=== PATIENT | female | born 1985 | race Caucasian/White ===

== ENCOUNTER → 2016-10-06 | Outpatient (CLI) | payer MEDICAID | LOC: MW.CHOBGYN 11:56 | PROVIDERS: ATTEND Nurse Practitioner Women's Health | DX: Z30.09 Encounter for other general counseling and advice on contraception (principal); N94.6 Dysmenorrhea, unspecified | CPT/HCPCS: 87491; 87591 ==

== ENCOUNTER 2016-11-07 12:12 | Emergency (ER) | payer SELFPAY ==
[2016-11-07] MEDS ORDERED: Ketorolac 30 MG/ML SDV IVPUSH ONE (12:14)
[2016-11-07] MEDS ORDERED: Ondansetron 4 MG/2 ML SDV IVPUSH ONE (12:14)
[2016-11-07] MEDS ORDERED: Sodium Chloride 0.9% 1,000 ML IV ONE (12:14)
--- NOTE | 2016-11-07 12:15 | EDM.PDOC ---
ED HPI GENERAL MEDICAL PROBLEM - General Chief Complaint: Headache Stated Complaint: MIGRANE Time Seen by Provider: 11/07/16 12:14 Source of Information: Reports: Patient - History of Present Illness INITIAL COMMENTS - FREE TEXT/NARRATIVE: HISTORY AND PHYSICAL: History of present illness: [] Patient presents with headache 7/10 left knee neuro lateral with photophobia consistent with migraine history, she also has supraorbital sinus tenderness left greater than right No fever nausea vomiting chills sweats Review of systems: As per history of present illness and below otherwise all systems reviewed and negative. Past medical history: As per history of present illness and as reviewed below otherwise noncontributory. Surgical history: As per history of present illness and as reviewed below otherwise noncontributory. Social history: No reported history of drug or alcohol abuse. Family history: As per history of present illness and as reviewed below otherwise noncontributory. Physical exam: HEENT: Atraumatic, normocephalic, pupils reactive, negative for conjunctival pallor or scleral icterus, mucous membranes moist, throat clear, neck supple, nontender, trachea midline. Supraorbital sign sinus tenderness left greater than right Lungs: Clear to auscultation, breath sounds equal bilaterally, chest nontender. Heart: S1S2, regular, negative for clicks, rubs, or JVD. Abdomen: Soft, nondistended, nontender. Negative for masses or hepatosplenomegaly. Negative for costovertebral tenderness. Pelvis: Stable nontender. Genitourinary: Deferred. Rectal: Deferred. Extremities: Atraumatic, negative for cords or calf pain. Neurovascular unremarkable. Neuro: Awake, alert, oriented. Cranial nerves II through XII unremarkable. Cerebellum unremarkable. Motor and sensory unremarkable throughout. Exam nonfocal. Diagnostics: [] Therapeutics: [] 1 L normal saline bolus Toradol 30 mg IV Zofran 8 mg IV 1 g Rocephin IM Augmentin 875 by mouth twice a day #20 no refill Impression: Migraine Acute sinusitis Definitive disposition and diagnosis as appropriate pending reevaluation and review of above. Headache Pain Score (Numeric/FACES): 8 - Related Data Allergies Allergy/AdvReac Type Severity Reaction Status Date / Time No Known Allergies Allergy Verified 11/07/16 12:38 Home Meds: Home Meds . [No Known Home Meds] 11/07/16 [History] Past Medical History - Past Health History Medical/Surgical History: Denies Medical/Surgical History Social & Family History - Family History Family Medical History: Noncontributory - Tobacco Use Smoking Status *Q: Current Every Day Smoker Years of Tobacco use: 10 Packs/Tins Daily: 0.5 Used Tobacco, but Quit: No Second Hand Smoke Exposure: Yes - Recreational Drug Use Recreational Drug Use: No ED ROS GENERAL - Review of Systems Review Of Systems: ROS reveals no pertinent complaints other than HPI. ED EXAM, GENERAL - Physical Exam Exam: See Below Course - Vital Signs Last Recorded V/S: Last Vital Signs Temp 36.5 C 11/07/16 12:36 Pulse 90 11/07/16 12:36 Resp 18 11/07/16 12:36 BP 121/75 11/07/16 12:36 Pulse Ox 97 11/07/16 12:36 - Orders/Labs/Meds Orders: Active Orders 24 hr Category Date Time Status cefTRIAXone [Rocephin] 1,000 mg Med 11/07/16 13:46 Ordered Lidocaine 1% [Xylocaine-MPF 1%] 4 ml IM ONETIME Meds: Medications Discontinued Medications Generic Name Dose Route Start Last Admin Trade Name Freq PRN Reason Stop Dose Admin Sodium Chloride 1,000 mls @ 999 mls/hr 11/07/16 12:14 11/07/16 13:08 Normal Saline IV 11/07/16 13:14 999 mls/hr STAT ONE Administration Ketorolac Tromethamine 30 mg 11/07/16 12:14 11/07/16 13:14 Toradol IVPUSH 11/07/16 12:15 30 mg ONETIME ONE Administration Ondansetron HCl 8 mg 11/07/16 12:14 11/07/16 13:12 Zofran IVPUSH 11/07/16 12:15 8 mg ONETIME ONE Administration Departure - Departure Time of Disposition: 13:46 Disposition: Home, Self-Care 01 Condition: good Clinical Impression: Migraine, Acute sinusitis - Discharge Information Forms: ED Department Discharge Additional Instructions: Medication as prescribed Claritin daily may benefit Mucinex may benefit Augmentin as prescribed The following information is given to patients seen in the emergency department who are being discharged to home. This information is to outline your options for follow-up care. We provide all patients seen in our emergency department with a follow-up referral. The need for follow-up, as well as the timing and circumstances, are variable depending upon the specifics of your emergency department visit. If you don't have a primary care physician on staff, we will provide you with a referral. We always advise you to contact your personal physician following an emergency department visit to inform them of the circumstance of the visit and for follow-up with them and/or the need for any referrals to a consulting specialist. The emergency department will also refer you to a specialist when appropriate. This referral assures that you have the opportunity for follow-up care with a specialist. All of these measure are taken in an effort to provide you with optimal care, which includes your follow-up. Under all circumstances we always encourage you to contact your private physician who remains a resource for coordinating your care. When calling for follow-up care, please make the office aware that this follow-up is from your recent emergency room visit. If for any reason you are refused follow-up, please contact the [facility] emergency department at and asked to speak to the emergency department charge nurse. - My Orders Last 24 Hours: My Active Orders 11/07/16 13:46 cefTRIAXone [Rocephin] 1,000 mg Lidocaine 1% [Xylocaine-MPF 1%] 4 ml IM ONETIME - Assessment/Plan Last 24 Hours: My Active Orders 11/07/16 13:46 cefTRIAXone [Rocephin] 1,000 mg Lidocaine 1% [Xylocaine-MPF 1%] 4 ml IM ONETIME
[2016-11-07] MEDS ORDERED: cefTRIAXone 1,000 MG in Lidocaine 1% 4 ML IM ONE (13:46)
[2016-11-07 14:21] VITALS: BP 111/61
== END 2016-11-07 14:46 | disposition home or self-care (01) ==
LOC: MW.ED 12:12
DX: G43.909 Migraine, unspecified, not intractable, without status migrainosus (principal); J01.90 Acute sinusitis, unspecified; F17.210 Nicotine dependence, cigarettes, uncomplicated
CPT/HCPCS: 96361; 96372; 96374; 96375; 99284; J0696; J1885; J2405; J7040

== ENCOUNTER 2016-11-08 16:54 | Emergency (ER) | payer SELFPAY ==
[2016-11-08] MEDS ORDERED: Ondansetron 4 MG/2 ML SDV IVPUSH ONE (17:11)
[2016-11-08] MEDS ORDERED: Sodium Chloride 0.9% 1,000 ML IV ONE (17:11)
[2016-11-08] MEDS ORDERED: Ketorolac 30 MG/ML SDV IVPUSH ONE (17:11)
[2016-11-08] MEDS ORDERED: LORazepam 2 MG/ML MDV IVPUSH ONE (17:11)
[2016-11-08] MEDS ORDERED: Cetirizine 10 MG Tab PO ONE (17:16)
--- NOTE | 2016-11-08 17:37 | EDM.PDOC ---
ED HPI GENERAL MEDICAL PROBLEM - General Chief Complaint: Headache Stated Complaint: PT HAS MIGRAINE Time Seen by Provider: 11/08/16 17:00 Source of Information: Reports: Patient History Limitations: Reports: No Limitations - History of Present Illness INITIAL COMMENTS - FREE TEXT/NARRATIVE: History of present illness: [31-year-old female presenting with complaints of migraine headache. Patient was seen here last night for the same and diagnosis of sinusitis as well as acute exacerbation of migraine. Patient is taking medication prescribed for her but she failed to get any antihistamine or sinus decongestion.] Review of systems: As per history of present illness and below otherwise all systems reviewed and negative. Past medical history: As per history of present illness and as reviewed below otherwise noncontributory. Surgical history: As per history of present illness and as reviewed below otherwise noncontributory. Social history: No reported history of drug or alcohol abuse. Family history: As per history of present illness and as reviewed below otherwise noncontributory. Physical exam: HEENT: Atraumatic, normocephalic, pupils reactive, negative for conjunctival pallor or scleral icterus, mucous membranes moist, throat clear, neck supple, nontender, trachea midline. Lungs: Clear to auscultation, breath sounds equal bilaterally, chest nontender. Heart: S1S2, regular, negative for clicks, rubs, or JVD. Abdomen: Soft, nondistended, nontender. Negative for masses or hepatosplenomegaly. Negative for costovertebral tenderness. Pelvis: Stable nontender. Genitourinary: Deferred. Rectal: Deferred. Extremities: Atraumatic, negative for cords or calf pain. Neurovascular unremarkable. Neuro: Awake, alert, oriented. Cranial nerves II through XII unremarkable. Cerebellum unremarkable. Motor and sensory unremarkable throughout. Exam nonfocal. Diagnostics: [] Therapeutics: [Headache workup, and his main] Impression: [Migraine and compounded by sinusitis] Plan: [Continue to take meds are prescribed, obtain antihistamine such as Claritin or Zyrtec] Definitive disposition and diagnosis as appropriate pending reevaluation and review of above. Headache Pain Score (Numeric/FACES): 10 - Related Data Allergies Allergy/AdvReac Type Severity Reaction Status Date / Time No Known Allergies Allergy Verified 11/08/16 17:11 Home Meds: Home Meds . [No Known Home Meds] 11/07/16 [History] Past Medical History - Past Health History Medical/Surgical History: Denies Medical/Surgical History - Infectious Disease History Infectious Disease History: Reports: Chicken Pox Social & Family History - Family History Family Medical History: Noncontributory - Tobacco Use Smoking Status *Q: Current Every Day Smoker Years of Tobacco use: 17 Packs/Tins Daily: 1 Used Tobacco, but Quit: No Second Hand Smoke Exposure: Yes - Caffeine Use Caffeine Use: Reports: Tea - Recreational Drug Use Recreational Drug Use: No ED ROS GENERAL - Review of Systems Review Of Systems: See Below (See history of present illness) - Physical Exam Exam: See Below (See history of present illness) Course - Vital Signs Last Recorded V/S: Last Vital Signs Temp 37.4 C 11/08/16 17:11 Pulse 84 11/08/16 17:50 Resp 14 11/08/16 17:50 BP 110/71 11/08/16 17:50 Pulse Ox 100 11/08/16 17:50 - Orders/Labs/Meds Meds: Medications Discontinued Medications Generic Name Dose Route Start Last Admin Trade Name Ahsan PRN Reason Stop Dose Admin Cetirizine HCl 10 mg 11/08/16 17:16 11/08/16 17:40 Zyrtec PO 11/08/16 17:17 10 mg ONETIME ONE Administration Sodium Chloride 1,000 mls @ 999 mls/hr 11/08/16 17:11 11/08/16 17:26 Normal Saline IV 11/08/16 18:11 999 mls/hr STAT ONE Administration Ketorolac Tromethamine 30 mg 11/08/16 17:11 11/08/16 17:31 Toradol IVPUSH 11/08/16 17:12 30 mg ONETIME ONE Administration Lorazepam 1 mg 11/08/16 17:11 11/08/16 17:27 Ativan IVPUSH 11/08/16 17:12 1 mg ONETIME ONE Administration Ondansetron HCl 8 mg 11/08/16 17:11 11/08/16 17:29 Zofran IVPUSH 11/08/16 17:12 8 mg ONETIME ONE Administration Departure - Departure Time of Disposition: 18:52 Disposition: Home, Self-Care 01 Condition: good Clinical Impression: Sinusitis, Migraine - Discharge Information Forms: ED Department Discharge Additional Instructions: The following information is given to patients seen in the emergency department who are being discharged to home. This information is to outline your options for follow-up care. We provide all patients seen in our emergency department with a follow-up referral. The need for follow-up, as well as the timing and circumstances, are variable depending upon the specifics of your emergency department visit. If you don't have a primary care physician on staff, we will provide you with a referral. We always advise you to contact your personal physician following an emergency department visit to inform them of the circumstance of the visit and for follow-up with them and/or the need for any referrals to a consulting specialist. The emergency department will also refer you to a specialist when appropriate. This referral assures that you have the opportunity for follow-up care with a specialist. All of these measure are taken in an effort to provide you with optimal care, which includes your follow-up. Under all circumstances we always encourage you to contact your private physician who remains a resource for coordinating your care. When calling for follow-up care, please make the office aware that this follow-up is from your recent emergency room visit. If for any reason you are refused follow-up, please contact the [facility] Emergency Department at and asked to speak to the emergency department charge nurse. Continue to take meds are prescribed, obtain antihistamine such as Claritin or Zyrtec Followup with PCP 1-2 day Return to ED as needed as
[2016-11-08 19:15] VITALS: BP 115/73
== END 2016-11-08 19:07 | disposition home or self-care (01) ==
LOC: MW.ED 16:54
DX: G43.909 Migraine, unspecified, not intractable, without status migrainosus (principal); J32.9 Chronic sinusitis, unspecified; F17.210 Nicotine dependence, cigarettes, uncomplicated
CPT/HCPCS: 96361; 96374; 96375; 99284; A9270; J1885; J2060; J2405; J7040

== ENCOUNTER 2017-12-19 17:14 | Inpatient (IN) | payer MEDICAID ==
[2017-12-19] MEDS ORDERED: Tranexamic Acid 1,000 MG in Sodium Chloride 0.9% 100 ML IV PRN (17:43)
[2017-12-19] MEDS ORDERED: Butorphanol 1 MG/ML SDV IVPUSH PRN (17:43)
[2017-12-19] MEDS ORDERED: Misoprostol 200 MCG Tab PO PRN (17:43)
[2017-12-19] MEDS ORDERED: Sodium Chloride 0.9% 10 ML Syringe FLUSH PRN (17:43)
[2017-12-19] MEDS ORDERED: Methylergonovine 0.2 MG/1 ML Amp IM PRN (17:43)
[2017-12-19] MEDS ORDERED: Water For Irrigation,Sterile 1,000 ML Container IRR PRN (17:43)
[2017-12-19] MEDS ORDERED: Nalbuphine 10 MG/ML 10 ML MDV IVPUSH PRN (17:43)
[2017-12-19] MEDS ORDERED: Lidocaine 1% 50 ML MDV INJECT PRN (17:43)
[2017-12-19] MEDS ORDERED: Carboprost Tromethamine 250 MCG/1 ML Amp IM PRN (17:43)
[2017-12-19] MEDS ORDERED: Sodium Chloride 0.9% 2.5 ML Syringe FLUSH PRN (17:43)
[2017-12-19] MEDS ORDERED: Oxytocin/0.9 % Sodium Chloride 30 UNIT/500 ML BAG IV SCH (17:45)
[2017-12-19] MEDS: Lactated Ringers 1,000 ML IV SCH ×2 (17:59→19:05)
--- NOTE | 2017-12-19 17:59 | PCM.LDHP ---
L&D History of Present Illness - General Date of Service: 12/19/17 Admit Problem/Dx: Patient Status Order with Admit Dx/Problem 12/19/17 17:43 Patient Status [ADT] Routine Admission Diagnosis/Problem Admission Diagnosis/Problem - planned 12/19/17 17:56 32yo EDC 12/15/2017 40 4/7wks, O+, RI, GBS neg. Active labor Source of Information: Patient History Limitations: Reports: No Limitations - History of Present Illness Improves with: Reports: None Worsens with: Reports: None Associated Symptoms: Reports: N - Related Data Allergies/Adverse Reactions: Allergies Allergy/AdvReac Type Severity Reaction Status Date / Time No Known Allergies Allergy Verified 11/08/16 17:11 Home Medications: Home Meds . [No Known Home Meds] 11/07/16 [History] Past Medical History - Past Health History Medical/Surgical History: Denies Medical/Surgical History - Infectious Disease History Infectious Disease History: Reports: Chicken Pox Social & Family History - Family History Family Medical History: Noncontributory - Caffeine Use Caffeine Use: Reports: Tea H&P Review of Systems - Review of Systems: Review Of Systems: See Below General: Reports: No Symptoms HEENT: Reports: No Symptoms Pulmonary: Reports: No Symptoms Cardiovascular: Reports: No Symptoms Gastrointestinal: Reports: No Symptoms Genitourinary: Reports: No Symptoms Musculoskeletal: Reports: No Symptoms Skin: Reports: No Symptoms Psychiatric: Reports: No Symptoms Neurological: Reports: No Symptoms Hematologic/Lymphatic: Reports: No Symptoms Immunologic: Reports: No Symptoms L&D Exam - Exam Exam: See Below - OB Specific Contraction Intensity: Strong Movement: Active Heart Tones: Present Heart Rate (FHR) Variability: Moderate (6-25 bmp) Presentation: Vertex Estimated Weight: 3200 - Patterson Score Patterson Score Cervix Position: Anterior Patterson Score Consistency: Soft Patterson Score Effacement: >80% Patterson Score Dilation: > 5 cm Patterson Score Infant's Station: -1 ,0 Patterson Score Total: 12 - Exam General: Alert, Oriented, Cooperative HEENT: Hearing Intact Lungs: Clear to Auscultation, Normal Respiratory Effort Cardiovascular: Regular Rate, Regular Rhythm, Normal S1, Normal S2 GI/Abdominal Exam: Soft, Non-Tender Rectal Exam: Normal Exam, Normal Rectal Tone Genitourinary: Normal external exam, Normal bimanual exam, Cervical dilitation Back Exam: Normal Inspection, Full Range of Motion Extremities: Normal Inspection Skin: Warm, Dry, Intact Neurological: Cranial Nerves Intact, Reflexes Equal Bilateral, Strength Equal Bilateral, Normal Gait, Normal Speech, Normal Tone Psychiatric: Alert, Normal Affect, Normal Mood - Problem List (1) Supervision of normal IUP (intrauterine ) in multigravida SNOMED Code(s): 058225401, 971881342, [id number] ICD Code: Z34.80 - ENCOUNTER FOR SUPRVSN OF NORMAL , UNSP TRIMESTER Status: Acute Priority: High Current Visit: Yes Qualifiers: Trimester: third trimester Qualified Code(s): Z34.83 - Encounter for supervision of other normal , third trimester Problem List Initiated/Reviewed/Updated: Yes Orders Last 24hrs: Active Orders 24 hr Category Date Time Status Patient Status [ADT] Routine ADT 12/19/17 17:43 Active Heart Tones [RC] CONTINUOUS Care 12/19/17 17:43 Active Non Stress Test [RC] PER UNIT ROUTINE Care 12/19/17 17:43 Active May Shower [RC] ASDIRECTED Care 12/19/17 17:43 Active Notify Provider [RC] PRN Care 12/19/17 17:43 Active Up ad Kina [RC] ASDIRECTED Care 12/19/17 17:43 Active Vaginal Exam [RC] PRN Care 12/19/17 17:43 Active Vital Signs [RC] PER UNIT ROUTINE Care 12/19/17 17:43 Active CBC W/O DIFF,HEMOGRAM [HEME] Routine Lab 12/19/17 17:43 Ordered TYPE AND SCREEN [BBK] Routine Lab 12/19/17 17:43 Ordered Butorphanol [Stadol] Med 12/19/17 17:43 Ordered 1 mg IVPUSH Q1H PRN Carboprost Tromethamine [Hemabate DS] Med 12/19/17 17:43 Ordered 250 mcg IM ASDIRECTED PRN Lactated Ringers [Ringers, Lactated] 1,000 ml Med 12/19/17 17:45 Ordered IV ASDIRECTED Lidocaine 1% [Xylocaine 1%] Med 12/19/17 17:43 Ordered 50 ml INJECT .ONCE PRN Methylergonovine [Methergine] Med 12/19/17 17:43 Ordered 0.2 mg IM ASDIRECTED PRN Misoprostol [Cytotec] Med 12/19/17 17:43 Ordered 200 mcg PO .ONCE PRN Nalbuphine [Nubain] Med 12/19/17 17:43 Ordered 10 mg IVPUSH Q1H PRN Oxytocin/0.9 % Sodium Chloride [Oxytocin 30 Unit/500 ML Med 12/19/17 17:45 Ordered -NS] 30 unit in 500 ml IV TITRATE Sodium Chloride 0.9% [Saline Flush] Med 12/19/17 17:43 Ordered 10 ml FLUSH ASDIRECTED PRN Sodium Chloride 0.9% [Saline Flush] Med 12/19/17 17:43 Ordered 2.5 ml FLUSH ASDIRECTED PRN Tranexamic Acid [Cyklokapron] 1,000 mg Med 12/19/17 17:43 Ordered Sodium Chloride 0.9% [Normal Saline] 100 ml IV ONETIME Water For Irrigation,Sterile [Sterile Water for Med 12/19/17 17:43 Ordered Irrigation] 1,000 ml IRR ASDIRECTED PRN Scalp Electrode [WOMSER] Per Unit Routine Oth 12/19/17 17:43 Ordered Peripheral IV Insertion Adult [OM.PC] Routine Oth 12/19/17 17:43 Ordered Resuscitation Status Routine Resus Stat 12/19/17 17:43 Ordered Medication Orders Butorphanol Tartrate (Stadol) 1 mg IVPUSH Q1H PRN PRN Reason: Pain Carboprost Tromethamine (Hemabate Ds) 250 mcg IM ASDIRECTED PRN PRN Reason: Post Hemorrhage Lactated Ringer's (Ringers, Lactated) 1,000 mls @ 150 mls/hr IV ASDIRECTED JOSE Oxytocin/Sodium Chloride (Oxytocin 30 Unit/500 Ml-Ns) 30 unit in 500 mls @ 250 mls/hr IV TITRATE JOSE Tranexamic Acid 1,000 mg/ (Sodium Chloride) 110 mls @ 660 mls/hr IV ONETIME PRN PRN Reason: Bleeding Lidocaine HCl (Xylocaine 1%) 50 ml INJECT .ONCE PRN PRN Reason: Laceration repair Methylergonovine Maleate (Methergine) 0.2 mg IM ASDIRECTED PRN PRN Reason: Post Hemorrhage Misoprostol (Cytotec) 200 mcg PO .ONCE PRN PRN Reason: Post Hemorrhage Nalbuphine HCl (Nubain) 10 mg IVPUSH Q1H PRN PRN Reason: Pain (severe 7-10) Sodium Chloride (Saline Flush) 10 ml FLUSH ASDIRECTED PRN PRN Reason: Keep Vein Open Sodium Chloride (Saline Flush) 2.5 ml FLUSH ASDIRECTED PRN PRN Reason: Keep Vein Open Sterile Water (Sterile Water For Irrigation) 1,000 ml IRR ASDIRECTED PRN PRN Reason: delivery Assessment/Plan Comment:: Labor A: 32yo EDC 12/15/2017 40 4/7wks, O+, RI, GBS neg. Active labor P: Admit, epidural now, anticipate , Dr Blanco [facility]
[2017-12-19] MEDS ORDERED: fentaNYL 100 MCG/2 ML SDV ONE (18:31)
--- NOTE | 2017-12-19 19:28 | PCM.PREANE ---
Preanesthetic Assessment - Anesthesia/Transfusion/Family Hx Anesthesia History: Prior Anesthesia Without Reaction Family History of Anesthesia Reaction: No Transfusion History: No Prior Transfusion(s) Intubation History: Unknown - Review of Systems General: No Symptoms Pulmonary: No Symptoms Cardiovascular: No Symptoms Gastrointestinal: Abdominal Pain Neurological: No Symptoms Other: Reports: None - Physical Assessment Height: 1.68 m Weight: 73.028 kg ASA Class: 2 Mental Status: Alert & Oriented x3 Airway Class: Mallampati = 2 Dentition: Reports: Normal Dentition Thyro-Mental Finger Breadths: 3 Mouth Opening Finger Breadths: 3 ROM/Head Extension: Full Lungs: Clear to Auscultation, Normal Respiratory Effort Cardiovascular: Regular Rate, Regular Rhythm - Lab Values: Laboratory Last Values WBC 17.18 K/uL (4.0-11.0) H 12/19/17 17:51 RBC 4.11 M/uL (4.30-5.90) L 12/19/17 17:51 Hgb 14.1 g/dL (12.0-16.0) 12/19/17 17:51 Hct 39.6 % (36.0-46.0) 12/19/17 17:51 MCV 96.4 fL (80.0-98.0) 12/19/17 17:51 MCH 34.3 pg (27.0-32.0) H 12/19/17 17:51 MCHC 35.6 g/dL (31.0-37.0) 12/19/17 17:51 RDW Std Deviation 45.7 fl (28.0-62.0) 12/19/17 17:51 RDW Coeff of Tonya 13 % (11.0-15.0) 12/19/17 17:51 Plt Count 235 K/uL (150-400) 12/19/17 17:51 MPV 10.50 fL (7.40-12.00) 12/19/17 17:51 Nucleated RBC % 0.0 /100WBC 12/19/17 17:51 Nucleated RBCs # 0 K/uL 12/19/17 17:51 Blood Type O POSITIVE 12/19/17 17:51 Antibody Screen NEGATIVE 12/19/17 17:51 - Allergies Allergies/Adverse Reactions: Allergies Allergy/AdvReac Type Severity Reaction Status Date / Time No Known Allergies Allergy Verified 12/19/17 18:21 - Blood Blood Available: No - Anesthesia Plan Pre-Op Medication Ordered: None - Acknowledgements Anesthesia Type Planned: Epidural Pt an Appropriate Candidate for the Planned Anesthesia: Yes Alternatives and Risks of Anesthesia Discussed w Pt/Guardian: Yes Pt/Guardian Understands and Agrees with Anesthesia Plan: Yes PreAnesthesia Questionnaire - Past Health History Medical/Surgical History: Denies Medical/Surgical History [employer] History: Reports: - Infectious Disease History Infectious Disease History: Reports: Chicken Pox - SUBSTANCE USE Smoking Status *Q: Current Every Day Smoker Tobacco Use Within Last Twelve Months: Cigarettes Second Hand Smoke Exposure: No Recreational Drug Use History: No - HOME MEDS Home Medications: Home Meds Butalb/Acetaminophen/Caffeine [Xkpxda-Nhwxfhjx-Dbnh 50-325-40] 12/19/17 [ History] Butalb/Acetaminophen/Caffeine [[id number]-Hfvpmqtc-Ibms 50-325-40] 12/19/17 [ History] Vit W-Ca,Fe,FA(<1 mg) [ Vitamins] 1 each PO 12/19/17 [History] - CURRENT (IN HOUSE) MEDS Current Meds: Current Medications Butorphanol Tartrate (Stadol) 1 mg IVPUSH Q1H PRN PRN Reason: Pain Carboprost Tromethamine (Hemabate Ds) 250 mcg IM ASDIRECTED PRN PRN Reason: Post Hemorrhage Lactated Ringer's (Ringers, Lactated) 1,000 mls @ 150 mls/hr IV ASDIRECTED [facility] Last Admin: 12/19/17 19:05 Dose: 150 mls/hr Oxytocin/Sodium Chloride (Oxytocin 30 Unit/500 Ml-Ns) 30 unit in 500 mls @ 250 mls/hr IV TITRATE [facility] Tranexamic Acid 1,000 mg/ (Sodium Chloride) 110 mls @ 660 mls/hr IV ONETIME PRN PRN Reason: Bleeding Lidocaine HCl (Xylocaine 1%) 50 ml INJECT .ONCE PRN PRN Reason: Laceration repair Methylergonovine Maleate (Methergine) 0.2 mg IM ASDIRECTED PRN PRN Reason: Post Hemorrhage Misoprostol (Cytotec) 200 mcg PO .ONCE PRN PRN Reason: Post Hemorrhage Nalbuphine HCl (Nubain) 10 mg IVPUSH Q1H PRN PRN Reason: Pain (severe 7-10) Sodium Chloride (Saline Flush) 10 ml FLUSH ASDIRECTED PRN PRN Reason: Keep Vein Open Sodium Chloride (Saline Flush) 2.5 ml FLUSH ASDIRECTED PRN PRN Reason: Keep Vein Open Sterile Water (Sterile Water For Irrigation) 1,000 ml IRR ASDIRECTED PRN PRN Reason: delivery Discontinued Medications Fentanyl (Sublimaze) Confirm Administered Dose 100 mcg .ROUTE .STK-MED ONE Stop: 12/19/17 18:32 Fentanyl/Bupivacaine HCl (Mgfjprmk-Twrmz-Ta 2 Mcg/Ml-0.125%) Confirm Administered Dose 100 mls @ as directed EP .STK-MED ONE Stop: 12/19/17 18:33
--- NOTE | 2017-12-19 20:31 | PCM.DEL ---
L & D Note - General Info Date of Service: 12/19/17 Mother's Due Date: 12/15/17 - Delivery Note Labor: Spontaneous Delivery Outcome: Livebirth Infant Delivery Method: Spontaneous Vaginal Delivery-Single Delivery Mode: Spontaneous Presentation: Vertex Nuchal Cord: Present Anesthesia Type: Epidural Amniotic Fluid Description: Clear Episiotomy Type: None Laceration: None Placenta: Intact, Spontaneous Cord: 3 Vessels Estimated Blood Loss: 150 Resuscitation Needed: No Score 1 min: 9 Score 5 min: 9 Second Stage Interventions: Reports: Pushing, Pulls Own Legs Back Delivery Comments (Free Text/Narrative):: of viable male over intact perineum, head delivered and loose nuchal x2 reduced over head, shoulders and body followed easily. to mothers abd with RN at for evaluation. Spont cry. Delayed cord clamping, pitocin to IVF, cord clamped x2 and cut by FOB. Cord blood collected. Placenta delivered grossly intact. Inspection noted intact perineum. EBL 150cc, APGARS 9/9. Wt: pending bonding and breast feeding. Mother and baby left in stable condition for recovery. - General Info Date of Service: 12/19/17 Admission Dx/Problem (Free Text): Patient Status Order with Admit Dx/Problem 12/19/17 17:43 Patient Status [ADT] Routine Admission Diagnosis/Problem Admission Diagnosis/Problem - planned 12/19/17 17:56 32yo EDC 12/15/2017 40 4/7wks, O+, RI, GBS neg. Active labor Functional Status: Reports: Pain Controlled - Review of Systems General: Reports: No Symptoms HEENT: Reports: No Symptoms Pulmonary: Reports: No Symptoms Cardiovascular: Reports: No Symptoms Gastrointestinal: Reports: No Symptoms Genitourinary: Reports: No Symptoms Musculoskeletal: Reports: No Symptoms Skin: Reports: No Symptoms Neurological: Reports: No Symptoms Psychiatric: Reports: No Symptoms - Patient Data Weight - Most Recent: 73.028 kg Lab Results Last 24 Hours: Laboratory Results - last 24 hr 12/19/17 12/19/17 Range/Units 17:51 17:51 WBC 17.18 H (4.0-11.0) K/uL RBC 4.11 L (4.30-5.90) M/uL Hgb 14.1 (12.0-16.0) g/dL Hct 39.6 (36.0-46.0) % MCV 96.4 (80.0-98.0) fL MCH 34.3 H (27.0-32.0) pg MCHC 35.6 (31.0-37.0) g/dL RDW Std Deviation 45.7 (28.0-62.0) fl RDW Coeff of Tonya 13 (11.0-15.0) % Plt Count 235 (150-400) K/uL MPV 10.50 (7.40-12.00) fL Nucleated RBC % 0.0 /100WBC Nucleated RBCs # 0 K/uL Blood Type O POSITIVE Antibody Screen NEGATIVE Med Orders - Current: Current Medications Butorphanol Tartrate (Stadol) 1 mg IVPUSH Q1H PRN PRN Reason: Pain Carboprost Tromethamine (Hemabate Ds) 250 mcg IM ASDIRECTED PRN PRN Reason: Post Hemorrhage Lactated Ringer's (Ringers, Lactated) 1,000 mls @ 150 mls/hr IV ASDIRECTED JOSE Last Admin: 12/19/17 19:05 Dose: 150 mls/hr Oxytocin/Sodium Chloride (Oxytocin 30 Unit/500 Ml-Ns) 30 unit in 500 mls @ 250 mls/hr IV TITRATE JOSE Tranexamic Acid 1,000 mg/ (Sodium Chloride) 110 mls @ 660 mls/hr IV ONETIME PRN PRN Reason: Bleeding Lidocaine HCl (Xylocaine 1%) 50 ml INJECT .ONCE PRN PRN Reason: Laceration repair Methylergonovine Maleate (Methergine) 0.2 mg IM ASDIRECTED PRN PRN Reason: Post Hemorrhage Misoprostol (Cytotec) 200 mcg PO .ONCE PRN PRN Reason: Post Hemorrhage Nalbuphine HCl (Nubain) 10 mg IVPUSH Q1H PRN PRN Reason: Pain (severe 7-10) Sodium Chloride (Saline Flush) 10 ml FLUSH ASDIRECTED PRN PRN Reason: Keep Vein Open Sodium Chloride (Saline Flush) 2.5 ml FLUSH ASDIRECTED PRN PRN Reason: Keep Vein Open Sterile Water (Sterile Water For Irrigation) 1,000 ml IRR ASDIRECTED PRN PRN Reason: delivery Discontinued Medications Fentanyl (Sublimaze) Confirm Administered Dose 100 mcg .ROUTE .STK-MED ONE Stop: 12/19/17 18:32 Fentanyl/Bupivacaine HCl (Mlqrmbsu-Kuzre-Gq 2 Mcg/Ml-0.125%) Confirm Administered Dose 100 mls @ as directed EP .STK-MED ONE Stop: 12/19/17 18:33 - Exam General: Alert, Oriented, Cooperative Lungs: Normal Respiratory Effort (Female) Exam: Normal External Exam, Normal Bimanual Exam, Vaginal Bleeding Back Exam: Normal Inspection Extremities: Normal Inspection, Non-Tender, No Pedal Edema, Normal Capillary Refill Skin: Warm, Dry, Intact Wound/Incisions: Healing Well Neurological: No New Focal Deficit, Normal Speech, Normal Tone Psy/Mental Status: Alert, Normal Affect, Normal Mood - Problem List & Annotations (1) Supervision of normal IUP (intrauterine ) in multigravida SNOMED Code(s): 724508232, 159639570, 830834331 Code(s): Z34.80 - ENCOUNTER FOR SUPRVSN OF NORMAL , UNSP TRIMESTER Status: Acute Priority: High Current Visit: Yes Qualifiers: Trimester: third trimester Qualified Code(s): Z34.83 - Encounter for supervision of other normal , third trimester (2) (normal spontaneous vaginal delivery) SNOMED Code(s): 81810486 Code(s): O80 - ENCOUNTER FOR FULL-TERM UNCOMPLICATED DELIVERY Status: Acute Priority: High Current Visit: Yes - Problem List Review Problem List Initiated/Reviewed/Updated: Yes - My Orders Last 24 Hours: My Active Orders 12/19/17 17:43 Patient Status [ADT] Routine Heart Tones [RC] CONTINUOUS Non Stress Test [RC] PER UNIT ROUTINE May Shower [RC] ASDIRECTED Notify Provider [RC] PRN Up ad Kina [RC] ASDIRECTED Vaginal Exam [RC] PRN Vital Signs [RC] PER UNIT ROUTINE Butorphanol [Stadol] 1 mg IVPUSH Q1H PRN Carboprost Tromethamine [Hemabate DS] 250 mcg IM ASDIRECTED PRN Lidocaine 1% [Xylocaine 1%] 50 ml INJECT .ONCE PRN Methylergonovine [Methergine] 0.2 mg IM ASDIRECTED PRN Misoprostol [Cytotec] 200 mcg PO .ONCE PRN Nalbuphine [Nubain] 10 mg IVPUSH Q1H PRN Sodium Chloride 0.9% [Saline Flush] 10 ml FLUSH ASDIRECTED PRN Sodium Chloride 0.9% [Saline Flush] 2.5 ml FLUSH ASDIRECTED PRN Tranexamic Acid [Cyklokapron] 1,000 mg Sodium Chloride 0.9% [Normal Saline] 100 ml IV ONETIME Water For Irrigation,Sterile [Sterile Water for Irrigation] 1,000 ml IRR ASDIRECTED PRN Scalp Electrode [WOMSER] Per Unit Routine Peripheral IV Insertion Adult [OM.PC] Routine Resuscitation Status Routine 12/19/17 17:45 Lactated Ringers [Ringers, Lactated] 1,000 ml IV ASDIRECTED Oxytocin/0.9 % Sodium Chloride [Oxytocin 30 Unit/500 ML-NS] 30 unit in 500 ml IV TITRATE - Plan Plan:: Labor A: 32yo EDC 12/15/2017 40 4/7wks, O+, RI, GBS neg. Active labor P: Admit, epidural now, anticipate , Dr Blanco updated Delivery A: of viable male. APGARS 9/9 Wt: pending, EBL 150cc, mother and baby bonding well P: Routine pp plan of care
[2017-12-19] MEDS ORDERED: oxyCODONE 5 MG Tab PO PRN (20:35)
[2017-12-19] MEDS ORDERED: Lanolin 100% Cream 7 GM Tube TOP PRN (20:35)
[2017-12-19] MEDS ORDERED: Acetaminophen 500 MG Tab PO PRN (20:35)
[2017-12-19] MEDS ORDERED: Docusate Sodium 100 MG Cap PO PRN (20:35)
[2017-12-19] MEDS ORDERED: Benzocaine/Menthol 20%-0.5% Spray 78 GM Cannister TOP PRN (20:35)
[2017-12-19] MEDS ORDERED: Bisacodyl 10 MG Supp RECTAL PRN (20:35)
[2017-12-19] MEDS ORDERED: Witch Hazel Medicated Pads 40/Jar TOP PRN (20:35)
[2017-12-19] MEDS ORDERED: Ibuprofen 400 MG Tab PO PRN (20:35)
[2017-12-20] MEDS: Acetaminophen 500 MG Tab PO PRN ×2 (01:05→06:58)
--- NOTE | 2017-12-20 08:00 | PCM48HPAN ---
Post Anesthesia Note - EVALUATION WITHIN 48HRS OF ANESTHETIC Vital Signs in Normal Range: Yes Patient Participated in Evaluation: Yes Respiratory Function Stable: Yes Airway Patent: Yes Cardiovascular Function Stable: Yes Hydration Status Stable: Yes Pain Control Satisfactory: Yes Nausea and Vomiting Control Satisfactory: Yes Mental Status Recovered: Yes Resp Rate: 16 - COMMENTS/OBSERVATIONS Free Text/Narrative:: States her back is a little sore and she has some cramping.
[2017-12-20] MEDS: Ibuprofen 800 MG Tab PO PRN ×2 (08:28→16:14)
--- NOTE | 2017-12-20 16:52 | PCM.DCSUM1 ---
Discharge Summary - Hospital Course Free Text/Narrative:: Discharge home with infant. Follow up in 6 weeks or sooner if needed. Diagnosis: Stroke: No - Discharge Data Discharge Date: 12/20/17 Discharge Disposition: Home, Self-Care 01 Condition: Good - Discharge Diagnosis/Problem(s) (1) Supervision of normal IUP (intrauterine ) in multigravida SNOMED Code(s): 377756803, 036226713, 655794101 ICD Code: Z34.80 - ENCOUNTER FOR SUPRVSN OF NORMAL , UNSP TRIMESTER Status: Acute Priority: High Current Visit: Yes Qualifiers: Trimester: third trimester Qualified Code(s): Z34.83 - Encounter for supervision of other normal , third trimester (2) (normal spontaneous vaginal delivery) SNOMED Code(s): 24365643 ICD Code: O80 - ENCOUNTER FOR FULL-TERM UNCOMPLICATED DELIVERY Status: Acute Priority: High Current Visit: Yes - Patient Instructions Diet: Usual Diet as Tolerated Activity: As Tolerated, No Strenuous Activities, Rest and Relax Today Driving: May Drive Today Showering/Bathing: May Shower Notify Provider of: Fever, Increased Pain, Swelling and Redness, Nausea and/or Vomiting Other/Special Instructions: Discharge home with . Follow up in 6 weeks or sooner if needed. - Discharge Plan Home Medications: Home Meds Butalb/Acetaminophen/Caffeine [Nkhgsv-Idbaummo-Dcmx 50-325-40] 12/19/17 [ History] Butalb/Acetaminophen/Caffeine [Hvghnx-Gujgvgfq-Oqhp 50-325-40] 12/19/17 [ History] Vit W-Ca,Fe,FA(<1 mg) [ Vitamins] 1 each PO 12/19/17 [History] Referrals: [facility] [Outside] Roya Jc CNM [Mid-] - 01/31/18 10:45 am - General Info Date of Service: 12/20/17 Admission Dx/Problem (Free Text: Patient Status Order with Admit Dx/Problem 12/19/17 17:43 Patient Status [ADT] Routine Admission Diagnosis/Problem Admission Diagnosis/Problem - planned 12/19/17 17:56 32yo EDC 12/15/2017 40 4/7wks, O+, RI, GBS neg. Active labor Functional Status: Reports: Pain Controlled, Tolerating Diet, Ambulating, Urinating - Review of Systems General: Reports: No Symptoms HEENT: Reports: No Symptoms Pulmonary: Reports: No Symptoms Cardiovascular: Reports: No Symptoms Gastrointestinal: Reports: No Symptoms Genitourinary: Reports: No Symptoms Musculoskeletal: Reports: No Symptoms Skin: Reports: No Symptoms Neurological: Reports: No Symptoms Psychiatric: Reports: No Symptoms - Patient Data Vitals - Most Recent: Last Vital Signs Temp 36.3 C 12/20/17 16:15 Pulse 77 12/20/17 16:15 Resp 18 12/20/17 16:15 BP 101/65 12/20/17 16:15 Pulse Ox 98 12/20/17 16:15 Weight - Most Recent: 73.028 kg Lab Results - Last 24 hrs: Laboratory Results - last 24 hr 12/19/17 12/19/17 Range/Units 17:51 17:51 WBC 17.18 H (4.0-11.0) K/uL RBC 4.11 L (4.30-5.90) M/uL Hgb 14.1 (12.0-16.0) g/dL Hct 39.6 (36.0-46.0) % MCV 96.4 (80.0-98.0) fL MCH 34.3 H (27.0-32.0) pg MCHC 35.6 (31.0-37.0) g/dL RDW Std Deviation 45.7 (28.0-62.0) fl RDW Coeff of Tonya 13 (11.0-15.0) % Plt Count 235 (150-400) K/uL MPV 10.50 (7.40-12.00) fL Nucleated RBC % 0.0 /100WBC Nucleated RBCs # 0 K/uL Blood Type O POSITIVE Antibody Screen NEGATIVE Med Orders - Current: Current Medications Acetaminophen (Tylenol Extra Strength) 500 mg PO Q4H PRN PRN Reason: Pain Last Admin: 12/20/17 13:18 Dose: 500 mg Acetaminophen (Tylenol Extra Strength) 1,000 mg PO Q4H PRN PRN Reason: Pain Last Admin: 12/20/17 06:58 Dose: 1,000 mg Benzocaine/Menthol (Dermoplast Pain Relief 20%-0.5% [place]) 78 gm TOP ASDIRECTED PRN PRN Reason: Perineal Comfort Measure Bisacodyl (Dulcolax) 10 mg RECTAL .ONCE PRN PRN Reason: Constipation Docusate Sodium (Colace) 100 mg PO BID PRN PRN Reason: Constipation Emollient Ointment (Lansinoh Hpa) 0 gm TOP ASDIRECTED PRN PRN Reason: Sore Nipples Ibuprofen (Motrin) 400 mg PO Q4H PRN PRN Reason: Pain Ibuprofen (Motrin) 800 mg PO Q6H PRN PRN Reason: Pain Last Admin: 12/20/17 16:14 Dose: 800 mg Oxycodone HCl (Oxycodone) 5 mg PO Q2H PRN PRN Reason: Pain Witch Darshana (Tucks) 1 pad TOP ASDIRECTED PRN PRN Reason: comfort care Discontinued Medications Butorphanol Tartrate (Stadol) 1 mg IVPUSH Q1H PRN PRN Reason: Pain Carboprost Tromethamine (Hemabate Ds) 250 mcg IM ASDIRECTED PRN PRN Reason: Post Hemorrhage Fentanyl (Sublimaze) Confirm Administered Dose 100 mcg .ROUTE .STK-MED ONE Stop: 12/19/17 18:32 Last Admin: 12/19/17 20:43 Dose: Not Given Lactated Ringer's (Ringers, Lactated) 1,000 mls @ 150 mls/hr IV ASDIRECTED [facility] Last Admin: 12/19/17 19:05 Dose: 150 mls/hr Oxytocin/Sodium Chloride (Oxytocin 30 Unit/500 Ml-Ns) 30 unit in 500 mls @ 250 mls/hr IV TITRATE [facility] Last Admin: 12/19/17 20:10 Dose: 999 mls/hr Tranexamic Acid 1,000 mg/ (Sodium Chloride) 110 mls @ 660 mls/hr IV ONETIME PRN PRN Reason: Bleeding Fentanyl/Bupivacaine HCl (Qaucxzgw-Wvlod-Ma 2 Mcg/Ml-0.125%) Confirm Administered Dose 100 mls @ as directed EP .STK-MED ONE Stop: 12/19/17 18:33 Last Admin: 12/19/17 20:43 Dose: Not Given Lidocaine HCl (Xylocaine 1%) 50 ml INJECT .ONCE PRN PRN Reason: Laceration repair Methylergonovine Maleate (Methergine) 0.2 mg IM ASDIRECTED PRN PRN Reason: Post Hemorrhage Misoprostol (Cytotec) 200 mcg PO .ONCE PRN PRN Reason: Post Hemorrhage Nalbuphine HCl (Nubain) 10 mg IVPUSH Q1H PRN PRN Reason: Pain (severe 7-10) Sodium Chloride (Saline Flush) 10 ml FLUSH ASDIRECTED PRN PRN Reason: Keep Vein Open Sodium Chloride (Saline Flush) 2.5 ml FLUSH ASDIRECTED PRN PRN Reason: Keep Vein Open Sterile Water (Sterile Water For Irrigation) 1,000 ml IRR ASDIRECTED PRN PRN Reason: delivery - Exam General: Reports: Alert, Oriented, Cooperative, No Acute Distress Lungs: Reports: Clear to Auscultation, Normal Respiratory Effort Cardiovascular: Reports: Regular Rate, Regular Rhythm, No Murmurs (Female) Exam: Vaginal Bleeding Rectal (Female) Exam: Deferred Back Exam: Reports: Normal Inspection, Full Range of Motion Extremities: Normal Inspection, Normal Range of Motion, Non-Tender, No Pedal Edema, Normal Capillary Refill Skin: Reports: Warm, Dry, Intact Wound/Incisions: Reports: Healing Well Neurological: Reports: No New Focal Deficit, Normal Gait, Normal Speech, Normal Tone, Strength Equal Bilateral Psy/Mental Status: Reports: Alert, Normal Affect, Normal Mood
[2017-12-20 22:34] VITALS: BP 112/76
== END 2017-12-20 22:00 | disposition home or self-care (01) | DRG 775 ==
LOC: MW.OBCHECK 17:14 → MW.OB 17:41 → MW.OBCHECK 17:43 → OBSVTOIN 20:09
PROVIDERS: ADMIT Obstetrics & Gynecology; ATTEND Obstetrics & Gynecology
PROC: 10E0XZZ Delivery of Products of Conception, External Approach (ICD-10-PCS; principal; 2017-12-19)
PROC: 6A550ZT Pheresis of Cord Blood Stem Cells, Single (ICD-10-PCS; 2017-12-19)
PROC: 00HU33Z Insertion of Infusion Device into Spinal Canal, Percutaneous Approach (ICD-10-PCS; 2017-12-19)
PROC: 3E0R3BZ Introduction of Anesthetic Agent into Spinal Canal, Percutaneous Approach (ICD-10-PCS; 2017-12-19)
DX: O48.0 Post-term pregnancy (principal); Z3A.40 40 weeks gestation of pregnancy; O69.81X0 Labor and delivery complicated by cord around neck, without compression, not applicable or unspecified; Z37.0 Single live birth
CPT/HCPCS: 36415; 51702; 59025; 59409; 85027; 86850; 86900; 86901; A9270-GY; J2590; J3010; J7120

== ENCOUNTER 2019-03-01 18:07 | Emergency (ER) | payer MEDICAID, OTHER ==
[2019-03-01] MEDS ORDERED: Ketorolac 60 MG/2 ML SDV IM ONE (18:40)
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
[2019-03-01 19:34] VITALS: BP 110/77; PULSE 78
== END 2019-03-01 19:30 | disposition home or self-care (01) ==
LOC: MW.ED 18:07
DX: S13.4XXA Sprain of ligaments of cervical spine, initial encounter (principal); F17.210 Nicotine dependence, cigarettes, uncomplicated; V89.2XXA Person injured in unspecified motor-vehicle accident, traffic, initial encounter
CPT/HCPCS: 70450; 72125; 96372; 99283; J1885; J2360; 99282

== ENCOUNTER 2019-05-09 12:57 | Emergency (ER) | payer MEDICAID, OTHER ==
[2019-05-09] MEDS ORDERED: Sodium Chloride 0.9% 1,000 ML IV ONE ×2 (13:08→16:14)
[2019-05-09] MEDS ORDERED: LORazepam 2 MG/ML SDV IVPUSH ONE (13:08)
[2019-05-09] MEDS ORDERED: Ondansetron 4 MG/2 ML SDV IVPUSH ONE ×2 (13:08→16:30)
--- NOTE | 2019-05-09 13:13 | EDM.PDOCBH ---
ED HPI GENERAL MEDICAL PROBLEM - General Chief Complaint: Drug or Alcohol Abuse Stated Complaint: NAUSEA Time Seen by Provider: 05/09/19 13:03 Source of Information: Reports: Patient History Limitations: Reports: No Limitations - History of Present Illness INITIAL COMMENTS - FREE TEXT/NARRATIVE: HISTORY AND PHYSICAL: History of present illness: Patient is a 33-year-old female who presents to the emergency room with complaints of nausea, muscle cramping and head/back pain. Patient states she drinks very heavily last night and woke up this morning with muscle cramping to her hands and bilateral lower extremities. She states she does have some thoracic back pain along with forehead pain and bruising. She believes she fell sometime during the evening but is unsure of the mechanism of injury or circumstances surrounding that fall. Unsure of LOC. She states she does have a history of heavy alcohol abuse but usually goes in "binges". She states prior to last night she had a drink in several weeks. She states that she came to the emergency room today as she states "this just doesn't feel right". She denies any drug abuse. States she has an IUD and no chance of . Patient denies any fever, chills, headache, change in vision, syncope or near syncope. Denies any chest pain, back pain, shortness of breath or cough. Denies any abdominal pain, diarrhea, constipation or dysuria. Has not noted any blood in urine or stool. Patient has been eating and drinking appropriately. Review of systems: As per history of present illness and below otherwise all systems reviewed and negative. Past medical history: As per history of present illness and as reviewed below otherwise noncontributory. Surgical history: As per history of present illness and as reviewed below otherwise noncontributory. Social history: See social history for further information Family history: As per history of present illness and as reviewed below otherwise noncontributory. Physical exam: General: Well-developed and well-nourished 33-year-old female. Alert and appropriate for age. Nontoxic appearing, tearful and anxious. But in no acute distress. HEENT: Bruising noted to right upper forehead with mild localized tenderness, normocephalic, pupils equal and reactive bilaterally, negative for conjunctival pallor or scleral icterus, mucous membranes dry, TMs normal bilaterally, throat clear, neck supple, nontender, trachea midline. No drooling or trismus noted. No meningeal signs. No hot potato voice noted. Lungs: Clear to auscultation, breath sounds equal bilaterally, chest nontender. Heart: S1S2, regular rate and rhythm without overt murmur Abdomen: Soft, nondistended, nontender. Negative for masses or hepatosplenomegaly. Negative for costovertebral tenderness. Pelvis: Stable nontender. C-spine/Back: No pinpoint vertebral tenderness upon palpation. Paraspinous muscular tenderness to the cervical and thoracic spine bilaterally. No crepitus , step-offs or obvious deformities. Patient is ambulatory into the emergency room without difficulty or deficit. Able to rock back on heels and walk on toes. Denies any urinary or fecal incontinence. Denies any numbness, tingling or saddle paresthesia. Skin: Bruising noted to the right upper forehead. Intact, warm, dry. No lesions or rashes noted. Extremities: Moves all extremities per self without difficulty or deficits, carpal pedal spasms to bilateral hands. Neurovascular unremarkable. Neuro: Awake, alert, oriented. Cranial nerves II through XII unremarkable. Cerebellum unremarkable. Motor and sensory unremarkable throughout. Exam nonfocal. Notes: Head and cervical spine CT are negative. X-ray of the pelvis and thoracic spine are unremarkable. Patient does have a leukocytosis without definitive cause at this time. CT of the abdomen and pelvis shows no evidence of hydronephrosis or hydroureter. No renal stones are noted. Diffuse fatty infiltration of the liver. Patient continues to have nausea and vomiting after the 2 separate doses of Zofran. We'll give her Phenergan IM at this time. Patient states she does feel improved besides the nausea. Patient was offered admission, she declined stating she has to go home and take care of her children. We reviewed signs and symptoms that would prompt her to return to the emergency room. Supportive care measures were reviewed and discussed. She voices understanding and denies any further questions. Vital signs remain stable Diagnostics: CBC, CMP, UA, HCGU, DRGU, Head CT, Cervical spine CT, thoracic and pelvis x-ray Therapeutics: IV fluids, Zofran, Ativan Impression: Alcohol withdrawl Fall Leukocytosis Plan: 1. [place] diet, advance as tolerated. Small frequent sips of fluids to prevent dehydration. 2. Tylenol and/or ibuprofen as needed for pain management. 3. Follow-up with your primary care provider as we discussed. Return to the ED as needed and as discussed. Definitive disposition and diagnosis as appropriate pending reevaluation and review of above. - Related Data Allergies Allergy/AdvReac Type Severity Reaction Status Date / Time No Known Allergies Allergy Verified 03/01/19 18:16 Home Meds: Home Meds . 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 ED EXAM, BEHAVIORAL HEALTH - Physical Exam Exam: See Below (See dictation) COURSE, BEHAVIORAL HEALTH COMP - Course Vital Signs: Last Vital Signs Temp 96.7 F 05/09/19 13:03 Pulse 68 05/09/19 16:35 Resp 18 05/09/19 16:35 BP 102/69 05/09/19 16:35 Pulse Ox 98 05/09/19 16:35 Orders, Labs, Meds: Laboratory Tests 05/09/19 05/09/19 05/09/19 Range/Units 13:45 13:45 16:30 WBC 17.98 H (4.0-11.0) K/uL RBC 4.22 L (4.30-5.90) M/uL Hgb 14.4 (12.0-16.0) g/dL Hct 41.7 (36.0-46.0) % MCV 98.8 H (80.0-98.0) fL MCH 34.1 H (27.0-32.0) pg MCHC 34.5 (31.0-37.0) g/dL RDW Std Deviation 46.3 (28.0-62.0) fl RDW Coeff of Tonya 13 (11.0-15.0) % Plt Count 331 (150-400) K/uL MPV 10.90 (7.40-12.00) fL Neut % (Auto) 91.1 H (48.0-80.0) % Lymph % (Auto) 6.2 L (16.0-40.0) % [place] % (Auto) 2.6 (0.0-15.0) % Eos % (Auto) 0.0 (0.0-7.0) % Baso % (Auto) 0.1 (0.0-1.5) % Neut # (Auto) 16.4 H (1.4-5.7) K/uL Lymph # (Auto) 1.1 (0.6-2.4) K/uL [place] # (Auto) 0.5 (0.0-0.8) K/uL Eos # (Auto) 0.0 (0.0-0.7) K/uL Baso # (Auto) 0.0 (0.0-0.1) K/uL Nucleated RBC % 0.0 /100WBC Nucleated RBCs # 0 K/uL Sodium 141 (136-145) mmol/L Potassium 3.9 (3.5-5.1) mmol/L Chloride 103 (98-107) mmol/L Carbon Dioxide 15.7 L (21.0-32.0) mmol/L BUN 7 (7.0-18.0) mg/dL Creatinine 0.9 (0.6-1.0) mg/dL Est Cr Clr Drug Dosing 83.23 mL/min Estimated GFR (MDRD) > 60.0 ml/min Glucose 96 (74-106) mg/dL Calcium 9.6 (8.5-10.1) mg/dL Total Bilirubin 0.7 (0.2-1.0) mg/dL AST 22 (15-37) IU/L ALT 31 (14-63) IU/L Alkaline Phosphatase 48 (46-116) U/L Total Protein 7.9 (6.4-8.2) g/dL Albumin 4.8 (3.4-5.0) g/dL Globulin 3.1 (2.6-4.0) g/dL Albumin/Globulin Ratio 1.5 (0.9-1.6) Lipase 80 (73-393) U/L Urine Color YELLOW Urine Appearance SLT CLOUDY Urine pH 6.0 (5.0-8.0) Ur Specific [place] >= 1.030 (1.001-1.035) Urine Protein TRACE H (NEGATIVE) mg/dL Urine Glucose (UA) NEGATIVE (NEGATIVE) mg/dL Urine Ketones 40 H (NEGATIVE) mg/dL Urine Occult Blood LARGE H (NEGATIVE) Urine Nitrite NEGATIVE (NEGATIVE) Urine Bilirubin NEGATIVE (NEGATIVE) Urine Urobilinogen 0.2 (<2.0) EU/dL Ur Leukocyte Esterase NEGATIVE (NEGATIVE) Urine RBC 0-3 (0-2/HPF) Urine WBC 0-2 (0-5/HPF) Ur Epithelial Cells FEW (NONE-FEW) Urine Bacteria FEW (NEGATIVE) Urine Mucus LIGHT (NONE-MOD) Urine HCG, Qual (NEGATIVE) Urine Opiates Screen (NEGATIVE) Ur Oxycodone Screen (NEGATIVE) Urine Methadone Screen (NEGATIVE) Ur Barbiturates Screen (NEGATIVE) Ur Phencyclidine Scrn (NEGATIVE) Ur Amphetamine Screen (NEGATIVE) U Methamphetamines Scrn (NEGATIVE) U Benzodiazepines Scrn (NEGATIVE) U Cocaine Metab Screen (NEGATIVE) U Marijuana (THC) Screen (NEGATIVE) Ethyl Alcohol 48 mg/dL 05/09/19 05/09/19 Range/Units 16:30 16:30 WBC (4.0-11.0) K/uL RBC (4.30-5.90) M/uL Hgb (12.0-16.0) g/dL Hct (36.0-46.0) % MCV (80.0-98.0) fL MCH (27.0-32.0) pg MCHC (31.0-37.0) g/dL RDW Std Deviation (28.0-62.0) fl RDW Coeff of Tonya (11.0-15.0) % Plt Count (150-400) K/uL MPV (7.40-12.00) fL Neut % (Auto) (48.0-80.0) % Lymph % (Auto) (16.0-40.0) % [place] % (Auto) (0.0-15.0) % Eos % (Auto) (0.0-7.0) % Baso % (Auto) (0.0-1.5) % Neut # (Auto) (1.4-5.7) K/uL Lymph # (Auto) (0.6-2.4) K/uL [place] # (Auto) (0.0-0.8) K/uL Eos # (Auto) (0.0-0.7) K/uL Baso # (Auto) (0.0-0.1) K/uL Nucleated RBC % /100WBC Nucleated RBCs # K/uL Sodium (136-145) mmol/L Potassium (3.5-5.1) mmol/L Chloride (98-107) mmol/L Carbon Dioxide (21.0-32.0) mmol/L BUN (7.0-18.0) mg/dL Creatinine (0.6-1.0) mg/dL Est Cr Clr Drug Dosing mL/min Estimated GFR (MDRD) ml/min Glucose (74-106) mg/dL Calcium (8.5-10.1) mg/dL Total Bilirubin (0.2-1.0) mg/dL AST (15-37) IU/L ALT (14-63) IU/L Alkaline Phosphatase (46-116) U/L Total Protein (6.4-8.2) g/dL Albumin (3.4-5.0) g/dL Globulin (2.6-4.0) g/dL Albumin/Globulin Ratio (0.9-1.6) Lipase (73-393) U/L Urine Color Urine Appearance Urine pH (5.0-8.0) Ur Specific [place] (1.001-1.035) Urine Protein (NEGATIVE) mg/dL Urine Glucose (UA) (NEGATIVE) mg/dL Urine Ketones (NEGATIVE) mg/dL Urine Occult Blood (NEGATIVE) Urine Nitrite (NEGATIVE) Urine Bilirubin (NEGATIVE) Urine Urobilinogen (<2.0) EU/dL Ur Leukocyte Esterase (NEGATIVE) Urine RBC (0-2/HPF) Urine WBC (0-5/HPF) Ur Epithelial Cells (NONE-FEW) Urine Bacteria (NEGATIVE) Urine Mucus (NONE-MOD) Urine HCG, Qual NEGATIVE (NEGATIVE) Urine Opiates Screen NEGATIVE (NEGATIVE) Ur Oxycodone Screen NEGATIVE (NEGATIVE) Urine Methadone Screen NEGATIVE (NEGATIVE) Ur Barbiturates Screen NEGATIVE (NEGATIVE) Ur Phencyclidine Scrn NEGATIVE (NEGATIVE) Ur Amphetamine Screen NEGATIVE (NEGATIVE) U Methamphetamines Scrn NEGATIVE (NEGATIVE) U Benzodiazepines Scrn NEGATIVE (NEGATIVE) U Cocaine Metab Screen NEGATIVE (NEGATIVE) U Marijuana (THC) Screen POSITIVE (NEGATIVE) Ethyl Alcohol mg/dL Medications Discontinued Medications Generic Name Dose Route Start Last Admin Trade Name Freq PRN Reason Stop Dose Admin Sodium Chloride 1,000 mls @ 999 mls/hr 05/09/19 13:08 05/09/19 13:45 Normal Saline IV 05/09/19 14:08 999 mls/hr STAT ONE Administration Sodium Chloride 1,000 mls @ 999 mls/hr 05/09/19 16:14 05/09/19 16:50 Normal Saline IV 05/09/19 17:14 999 mls/hr STAT ONE Administration Lorazepam 1 mg 05/09/19 13:08 05/09/19 13:45 Ativan IVPUSH 05/09/19 13:09 1 mg ONETIME ONE Administration Ondansetron HCl 4 mg 05/09/19 13:08 05/09/19 13:46 Zofran IVPUSH 05/09/19 13:09 4 mg ONETIME ONE Administration Ondansetron HCl 4 mg 05/09/19 16:30 05/09/19 16:49 Zofran IVPUSH 05/09/19 16:31 4 mg ONETIME ONE Administration Promethazine HCl 25 mg 05/09/19 17:09 05/09/19 17:23 Phenergan IM 05/09/19 17:10 25 mg ONETIME ONE Administration Departure - Departure Time of Disposition: 17:30 Disposition: Home, Self-Care 01 Clinical Impression: Alcohol withdrawal syndrome Qualifiers: Complication of substance-induced condition: uncomplicated Qualified Code(s): F10.230 - Alcohol dependence with withdrawal, uncomplicated Leukocytosis, unspecified Qualifiers: Leukocytosis type: unspecified Qualified Code(s): D72.829 - Elevated white blood cell count, unspecified Fall Qualifiers: Encounter type: initial encounter Qualified Code(s): W19.XXXA - Unspecified fall, initial encounter - Discharge Information Instructions: Leukocytosis, Fall Prevention in the Home, Adult, Alcohol Withdrawal Syndrome, [id number] Referrals: PCP,Unknown [Primary Care Provider] - Forms: ED Department Discharge Additional Instructions: The following information is given to patients seen in the emergency department who are being discharged to home. This information is to outline your options for follow-up care. We provide all patients seen in our emergency department with a follow-up referral. The need for follow-up, as well as the timing and circumstances, are variable depending upon the specifics of your emergency department visit. If you don't have a primary care physician on staff, we will provide you with a referral. We always advise you to contact your personal physician following an emergency department visit to inform them of the circumstance of the visit and for follow-up with them and/or the need for any referrals to a consulting specialist. The emergency department will also refer you to a specialist when appropriate. This referral assures that you have the opportunity for follow-up care with a specialist. All of these measure are taken in an effort to provide you with optimal care, which includes your follow-up. Under all circumstances we always encourage you to contact your private physician who remains a resource for coordinating your care. When calling for follow-up care, please make the office aware that this follow-up is from your recent emergency room visit. If for any reason you are refused follow-up, please contact the [facility] Emergency Department at and asked to speak to the emergency department charge nurse. [facility] [address] [place] [id number] [facility] [address] [place] [address] 1. [place] diet for the next 24-72 hours, advance as tolerated. Small frequent sips of fluids to prevent dehydration. 2. Tylenol and/or ibuprofen as needed for pain management. 3. Follow-up with your primary care provider as we discussed. Return to the ED as needed and as discussed.
--- NOTE | 2019-05-09 13:58 | CT ---
EXAM DATE: 05/09/19 PATIENT'S AGE: 33 CT cervical spine Technique: Multiple axial sections through the cervical spine were obtained from above C1 inferiorly to the mid T5 level. Reconstructed coronal and sagittal images were obtained. Comparison: No prior cervical spine imaging. Findings: Mild disc space narrowing is noted at C5-C6. Scoliosis is present within the upper thoracic and cervical spine. Vertebral body heights are maintained. No fracture is appreciated. No bony central or bony neural foraminal stenosis is seen. No abnormal subluxation is seen. Impression: 1. Mild scoliosis. Slight disc space narrowing at C5-C6. 2. Nothing acute is appreciated on CT study of the cervical spine. Diagnostic code #2 Report Signed by Proxy. JEANNE
--- NOTE | 2019-05-09 13:59 | CT ---
EXAM DATE: 05/09/19 PATIENT'S AGE: [address] Technique: Multiple axial sections through the brain were obtained. Intravenous contrast was not utilized. Comparison: No prior intracranial imaging. Findings: Ventricles along with basal cisterns and sulci over convexities appear within normal limits for the patient's age. No abnormal parenchymal densities are seen. No evidence of intracranial hemorrhage. No midline shift or mass effect is seen. Bone window settings were reviewed which shows minimal mucosal thickening within the ethmoid sinuses which is felt to be incidental. Mastoid sinuses are clear. No acute calvarial abnormality is seen. Impression: 1. Nothing acute is appreciated on noncontrast head CT exam. Diagnostic code #2 Report Signed by Proxy. JEANNE
[2019-05-09 14:36] LABS: BLOOD UREA NITROGEN,BUN 7 mg/dL (7.0-18.0); CARBON DIOXIDE,CO2 15.7 mmol/L (21.0-32.0); CHLORIDE,CL 103 mmol/L (98-107); GLUCOSE RANDOM 96 mg/dL (74-106); LIPASE 80 U/L (73-393); POTASSIUM,K 3.9 mmol/L (3.5-5.1); SODIUM,NA 141 mmol/L (136-145)
--- NOTE | 2019-05-09 14:54 | CR ---
EXAM DATE: 05/09/19 PATIENT'S AGE: 33 Pelvis: AP view of the pelvis was obtained. Comparison: No prior pelvis study. Joint spaces within both hips are maintained. Sacroiliac joints appear within normal limits. IUD is noted within the pelvis. No fracture or other abnormality is seen. Impression: 1. IUD within the pelvis. 2. Nothing acute is seen on AP pelvis study. Diagnostic code #2 Report Signed by Proxy. JEANNE
--- NOTE | 2019-05-09 14:57 | CR ---
EXAM DATE: 05/09/19 PATIENT'S AGE: 33 Thoracic spine: AP and lateral views of the thoracic spine were obtained. Thoracic and cervical scoliosis is noted. Vertebral body heights and disc spaces are fairly well preserved. Pedicles are intact. No subluxation or fracture is seen. Impression: 1. Scoliosis. 2. No additional abnormality is appreciated on two view thoracic spine exam. Diagnostic code #2 Report Signed by Proxy. JEANNE
--- NOTE | 2019-05-09 16:14 | CT ---
Indication: Abdominal pain. Bilateral flank pain. Technique: Multiple contiguous axial images were obtained from the lung bases through the symphysis pubis without intravenous contrast enhancement. Please note that all CT scans at this facility use dose modulation, iterative reconstruction, and/or weight-based dosing when appropriate to reduce radiation dose to as low as reasonably achievable. Comparison: None Findings: The lung bases are clear. The heart is normal in size. No pericardial effusion is identified. The unenhanced liver, spleen, pancreas, gallbladder, adrenals, and kidneys are normal. No intrahepatic biliary ductal dilatation is identified. Diffuse fatty infiltration of the liver is identified. No hydronephrosis is identified. No renal calculi are identified. No hydro ureter is identified. In the pelvis, an IUD is present. The urinary bladder is normal. The small and large bowel are normal in caliber. The appendix is not clearly identified. However, no inflammatory changes are identified in the right lower quadrant. No free air or free fluid is identified within the abdomen or pelvis. No lytic or blastic lesions of the spine are seen. Impression: No evidence of hydronephrosis or hydroureter. No renal/ureteral calculi. Diffuse fatty infiltration of the liver Please note that all CT scans at this facility use dose modulation, iterative reconstruction, and/or weight-based dosing when appropriate to reduce radiation dose to as low as reasonably achievable. Dictated by Bettie Peters MD @ May 09 2019 4:11PM Signed by Dr. Bettie Peters @ May 09 2019 4:13PM
[2019-05-09] MEDS ORDERED: Promethazine 25 MG/ML SDV IM ONE (17:09)
[2019-05-09 19:04] VITALS: BP 100/44; PULSE 64
== END 2019-05-09 19:04 | disposition home or self-care (01) ==
LOC: MW.ED 12:57
DX: S00.83XA Contusion of other part of head, initial encounter (principal); F10.230 Alcohol dependence with withdrawal, uncomplicated; Y90.2 Blood alcohol level of 40-59 mg/100 ml; D72.829 Elevated white blood cell count, unspecified; W19.XXXA Unspecified fall, initial encounter
CPT/HCPCS: 70450; 72072; 72125; 72170; 74176; 80053; 80305; 80320; 81001; 81025; 83690; 85025; 96361; 96372; 96374; 96375; 96376; 99284; J2060; J2405; J2550; J7040; G0480

== ENCOUNTER 2019-05-11 09:18 | Observation (INO) | payer SELFPAY ==
[2019-05-11] MEDS ORDERED: LORazepam 2 MG/ML SDV IVPUSH ONE (09:39)
[2019-05-11] MEDS ORDERED: Ondansetron 4 MG/2 ML SDV IVPUSH ONE ×2 (09:40→11:10)
[2019-05-11] MEDS ORDERED: MVI, Adult with Vitamin K 10 ML, Thiamine 100 MG, Folic Acid 1 MG in Sodium Chloride 0.... IV ONE ×4 (09:40)
[2019-05-11] MEDS ORDERED: chlordiazePOXIDE 25 MG Cap PO ONE (09:41)
--- NOTE | 2019-05-11 09:48 | EDM.PDOC ---
ED HPI GENERAL MEDICAL PROBLEM - General Chief Complaint: General Stated Complaint: FLU SYMPTOMS Time Seen by Provider: 05/11/19 09:42 - History of Present Illness INITIAL COMMENTS - FREE TEXT/NARRATIVE: HISTORY AND PHYSICAL: History of present illness: Patient is a 33-year-old female who was seen several days prior after a fall and an episode of alcohol ingestion for which a workup including CT brain was reportedly unremarkable she was discharged home she returns now with intractable nausea vomiting and anxiety. She does acknowledge that she does drink regularly and does become less comfortable when not drinking. She denies addie alcohol withdrawal or DTs. Patient denies abdominal pain patient has had mild headache but states this seems to be precipitated by the vomiting and not prior to Review of systems: As per history of present illness and below otherwise all systems reviewed and negative. Past medical history: As per history of present illness and as reviewed below otherwise noncontributory. Surgical history: As per history of present illness and as reviewed below otherwise noncontributory. Social history: No reported history of drug or alcohol abuse. Family history: As per history of present illness and as reviewed below otherwise noncontributory. Physical exam: HEENT: Small ecchymosis noted into the right face, normocephalic, pupils reactive, negative for conjunctival pallor or scleral icterus, mucous membranes moist, throat clear, neck supple, nontender, trachea midline. Lungs: Clear to auscultation, breath sounds equal bilaterally, chest nontender. Heart: S1S2, regular, negative for clicks, rubs, or JVD. Abdomen: Soft, nondistended, nontender. Negative for masses or hepatosplenomegaly. Negative for costovertebral tenderness. Pelvis: Stable nontender. Genitourinary: Deferred. Rectal: Deferred. Extremities: Atraumatic, negative for cords or calf pain. Neurovascular unremarkable. Neuro: Awake, alert, oriented. Anxious with minor tremors noted Cranial nerves II through XII unremarkable. Cerebellum unremarkable. Motor and sensory unremarkable throughout. Exam nonfocal. Diagnostics: CBC CMP and lipase UA hCG chest x-ray influenza screen Therapeutics: Banana bag bolus Ativan 1 mg IV Librium 25 mg by mouth Impression: #1 history of recent head trauma #2 rule out concussion #3 ethanol abuse with acute alcohol withdrawal #4 hyperemesis Definitive disposition and diagnosis as appropriate pending reevaluation and review of above. abdominal Pain Score (Numeric/FACES): 5 - Related Data Allergies Allergy/AdvReac Type Severity Reaction Status Date / Time No Known Allergies Allergy Verified 05/11/19 09:36 Home Meds: Home Meds . 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 ED EXAM, GENERAL - Physical Exam Exam: See Below (dictation) Course - Vital Signs Last Recorded V/S: Last Vital Signs Temp 36.2 C 05/11/19 09:31 Pulse 64 05/11/19 09:31 Resp 18 05/11/19 09:31 BP 123/71 05/11/19 09:31 Pulse Ox 99 05/11/19 09:31 - Orders/Labs/Meds Orders: Active Orders 24 hr Category Date Time Status Chest 1V Frontal [CR] Stat Exams 05/11/19 09:41 Taken COMPREHENSIVE METABOLIC PN,CMP [CHEM] Stat Lab 05/11/19 09:55 Received HCG QUALITATIVE,URINE [URCHEM] Stat Lab 05/11/19 09:46 Ordered LIPASE [CHEM] Stat Lab 05/11/19 09:55 Received UA RFX GARRY AND CULT IF INDIC [URIN] Stat Lab 05/11/19 09:46 Ordered MVI, Adult with Vitamin K [Infuvite Adult] 10 ml Med 05/11/19 09:40 Active Thiamine [Vitamin B-1] 100 mg Folic Acid 1 mg Sodium Chloride 0.9% [Normal Saline] 1,000 ml IV ONETIME Medication Orders Multivitamins/Minerals 10 ml/Thiamine HCl 100 mg/ Folic Acid 1 mg/ Sodium Chloride 1,011.2 mls @ 999 mls/hr IV ONETIME ONE Stop: 05/11/19 10:40 Last Admin: 05/11/19 10:00 Dose: 999 mls/hr Labs: Laboratory Tests 05/11/19 Range/Units 09:55 WBC 11.33 H (4.0-11.0) K/uL RBC 4.35 (4.30-5.90) M/uL Hgb 14.9 (12.0-16.0) g/dL Hct 42.0 (36.0-46.0) % MCV 96.6 (80.0-98.0) fL MCH 34.3 H (27.0-32.0) pg MCHC 35.5 (31.0-37.0) g/dL RDW Std Deviation 43.4 (28.0-62.0) fl RDW Coeff of Tonya 12 (11.0-15.0) % Plt Count 241 (150-400) K/uL MPV 10.60 (7.40-12.00) fL Neut % (Auto) 89.3 H (48.0-80.0) % Lymph % (Auto) 5.7 L (16.0-40.0) % [place] % (Auto) 4.9 (0.0-15.0) % Eos % (Auto) 0.0 (0.0-7.0) % Baso % (Auto) 0.1 (0.0-1.5) % Neut # (Auto) 10.1 H (1.4-5.7) K/uL Lymph # (Auto) 0.7 (0.6-2.4) K/uL [place] # (Auto) 0.6 (0.0-0.8) K/uL Eos # (Auto) 0.0 (0.0-0.7) K/uL Baso # (Auto) 0.0 (0.0-0.1) K/uL Nucleated RBC % 0.0 /100WBC Nucleated RBCs # 0 K/uL Meds: Medications Generic Name Dose Route Start Last Admin Trade Name Freq PRN Reason Stop Dose Admin Multivitamins/Minerals 10 ml/ 1,011.2 mls @ 999 mls/hr 05/11/19 09:40 10:00 Thiamine HCl 100 mg/ Folic IV 05/11/19 10:40 999 mls/hr Acid 1 mg/ Sodium Chloride ONETIME ONE Administration Discontinued Medications Generic Name Dose Route Start Last Admin Trade Name Ahsan PRN Reason Stop Dose Admin Chlordiazepoxide HCl 25 mg 05/11/19 09:41 05/11/19 10:00 Librium PO 05/11/19 09:42 25 mg ONETIME ONE Administration Lorazepam 1 mg 05/11/19 09:39 05/11/19 10:00 Ativan IVPUSH 05/11/19 09:40 1 mg ONETIME ONE Administration Ondansetron HCl 4 mg 05/11/19 09:40 05/11/19 10:00 Zofran IVPUSH 05/11/19 09:41 4 mg ONETIME ONE Administration Departure - Departure Time of Disposition: 10:35 Disposition: Refer to Observation Condition: Good Clinical Impression: Vomiting, Concussion Alcohol withdrawal Qualifiers: Complication of substance-induced condition: uncomplicated Qualified Code(s): F10.230 - Alcohol dependence with withdrawal, uncomplicated - Discharge Information Referrals: PCP,None [Primary Care Provider] - Forms: ED Department Discharge - My Orders Last 24 Hours: My Active Orders 05/11/19 09:40 MVI, Adult with Vitamin K [Infuvite Adult] 10 ml Thiamine [Vitamin B-1] 100 mg Folic Acid 1 mg Sodium Chloride 0.9% [Normal Saline] 1,000 ml IV ONETIME 05/11/19 09:41 Chest 1V Frontal [CR] Stat 05/11/19 09:46 HCG QUALITATIVE,URINE [URCHEM] Stat UA RFX GARRY AND CULT IF INDIC [URIN] Stat 05/11/19 09:55 COMPREHENSIVE METABOLIC PN,CMP [CHEM] Stat LIPASE [CHEM] Stat - Assessment/Plan Last 24 Hours: My Active Orders 05/11/19 09:40 MVI, Adult with Vitamin K [Infuvite Adult] 10 ml Thiamine [Vitamin B-1] 100 mg Folic Acid 1 mg Sodium Chloride 0.9% [Normal Saline] 1,000 ml IV ONETIME 05/11/19 09:41 Chest 1V Frontal [CR] Stat 05/11/19 09:46 HCG QUALITATIVE,URINE [URCHEM] Stat UA RFX GARRY AND CULT IF INDIC [URIN] Stat 05/11/19 09:55 COMPREHENSIVE METABOLIC PN,CMP [CHEM] Stat LIPASE [CHEM] Stat
--- NOTE | 2019-05-11 10:41 | CR ---
INDICATION: weakness TECHNIQUE: Chest 1 view. COMPARISON: None. FINDINGS: Cardiovascular and mediastinum: Heart size and vasculature are normal in caliber and appearance. Mediastinum is within normal limits. Lungs and pleural space: Lungs are clear. No sign of infiltrate or mass. No sign of pleural effusion. No pneumothorax. Bones and soft tissues: No significant findings. IMPRESSION: Unremarkable chest. Dictated by: Errol Lopes MD @ 05/11/2019 10:39:15 (Electronically Signed)
[2019-05-11 10:50] LABS: BLOOD UREA NITROGEN,BUN 12 mg/dL (7.0-18.0); CARBON DIOXIDE,CO2 19.3 mmol/L (21.0-32.0); CHLORIDE,CL 104 mmol/L (98-107); GLUCOSE RANDOM 100 mg/dL (74-106); LIPASE 240 U/L (73-393); POTASSIUM,K 3.3 mmol/L (3.5-5.1); SODIUM,NA 139 mmol/L (136-145)
[2019-05-11] MEDS ORDERED: Ondansetron 4 MG/2 ML SDV IVPUSH PRN (12:34)
[2019-05-11] MEDS ORDERED: Promethazine 25 MG/ML SDV IM PRN (12:34)
--- NOTE | 2019-05-11 12:41 | PCM.HP.2 ---
H&P History of Present Illness - General Date of Service: 05/11/19 Admit Problem/Dx: Admission Diagnosis/Problem Admission Diagnosis/Problem Vomiting - History of Present Illness Initial Comments - Free Text/Narative: 33 yo female who presents with three day history of nausea, vomiting and abdominal pain. Her symptoms started after binge drinking Tuesday night. Patient report drinking excessively once a week but denies daily alcohol use. Her kids at home have also been vomiting with diarrhea. abdominal Pain Score (Numeric/FACES): 5 - Related Data Allergies/Adverse Reactions: Allergies Allergy/AdvReac Type Severity Reaction Status Date / Time No Known Allergies Allergy Verified 05/11/19 13:35 Home Medications: Home Meds . 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: - Infectious Disease History Infectious Disease History: Reports: Chicken Pox Social & Family History - Family History Family Medical History: Noncontributory - Tobacco Use Smoking Status *Q: Current Every Day Smoker Years of Tobacco use: 14 Packs/Tins Daily: 1 - Caffeine Use Caffeine Use: Reports: Tea Other Caffeine Use: Headache medicine - Recreational Drug Use Recreational Drug Use: Yes Recreational Drug Type: Reports: Marijuana/Hashish Recreational Drug Use Frequency: Socially H&P Review of Systems - Review of Systems: Review Of Systems: See Below Exam - Exam Exam: See Below - Vital Signs Vital Signs: Last Vital Signs Temp 36.2 C 05/11/19 09:31 Pulse 54 L 05/11/19 11:00 Resp 16 05/11/19 11:00 BP 93/57 L 05/11/19 11:00 Pulse Ox 95 05/11/19 11:00 Weight: 61.235 kg - Exam General: Alert, Oriented HEENT: Conjunctiva Clear Lungs: Clear to Auscultation, Normal Respiratory Effort Cardiovascular: Regular Rate, Regular Rhythm GI/Abdominal Exam: Normal Bowel Sounds, Soft, Non-Tender, No Distention Extremities: Non-Tender, No Pedal Edema Skin: Warm, Dry, Intact - Patient Data Lab Results Last 24 hrs: Laboratory Results - last 24 hr 05/11/19 05/11/19 05/11/19 Range/Units 09:55 09:55 09:55 WBC 11.33 H (4.0-11.0) K/uL RBC 4.35 (4.30-5.90) M/uL Hgb 14.9 (12.0-16.0) g/dL Hct 42.0 (36.0-46.0) % MCV 96.6 (80.0-98.0) fL MCH 34.3 H (27.0-32.0) pg MCHC 35.5 (31.0-37.0) g/dL RDW Std Deviation 43.4 (28.0-62.0) fl RDW Coeff of Tonya 12 (11.0-15.0) % Plt Count 241 (150-400) K/uL MPV 10.60 (7.40-12.00) fL Neut % (Auto) 89.3 H (48.0-80.0) % Lymph % (Auto) 5.7 L (16.0-40.0) % [place] % (Auto) 4.9 (0.0-15.0) % Eos % (Auto) 0.0 (0.0-7.0) % Baso % (Auto) 0.1 (0.0-1.5) % Neut # (Auto) 10.1 H (1.4-5.7) K/uL Lymph # (Auto) 0.7 (0.6-2.4) K/uL [place] # (Auto) 0.6 (0.0-0.8) K/uL Eos # (Auto) 0.0 (0.0-0.7) K/uL Baso # (Auto) 0.0 (0.0-0.1) K/uL Nucleated RBC % 0.0 /100WBC Nucleated RBCs # 0 K/uL Sodium 139 (136-145) mmol/L Potassium 3.3 L (3.5-5.1) mmol/L Chloride 104 (98-107) mmol/L Carbon Dioxide 19.3 L (21.0-32.0) mmol/L BUN 12 (7.0-18.0) mg/dL Creatinine 0.9 (0.6-1.0) mg/dL Est Cr Clr Drug Dosing 83.23 mL/min Estimated GFR (MDRD) > 60.0 ml/min Glucose 100 (74-106) mg/dL Calcium 9.2 (8.5-10.1) mg/dL Total Bilirubin 1.2 H (0.2-1.0) mg/dL AST 20 (15-37) IU/L ALT 29 (14-63) IU/L Alkaline Phosphatase 45 L (46-116) U/L Total Protein 7.5 (6.4-8.2) g/dL Albumin 4.4 (3.4-5.0) g/dL Globulin 3.1 (2.6-4.0) g/dL Albumin/Globulin Ratio 1.4 (0.9-1.6) Lipase 240 (73-393) U/L Ethyl Alcohol < 3.0 mg/dL Result Diagrams: 05/12/19 05:40 05/12/19 05:40 Tres Results Last 24 hrs: Microbiology 05/11/19 10:03 Influenza Type A Antigen Screen - Final Nasopharyngeal Swab NEGATIVE INFLUENZA A VIRUS AG REFERENCE RANGE: NEGATIVE Influenza Type B Antigen Screen - Final NEGATIVE INFLUENZA B VIRUS AG REFERENCE RANGE: NEGATIVE Problem List Initiated/Reviewed/Updated: Yes Orders Last 24hrs: Active Orders 24 hr Category Date Time Status Patient Status [ADT] Stat ADT 05/11/19 10:37 Active Antiembolic Devices [RC] PER UNIT ROUTINE Care 05/11/19 12:36 Ordered Oxygen Therapy [RC] PRN Care 05/11/19 12:34 Ordered Up ad Kina [RC] ASDIRECTED Care 05/11/19 12:34 Ordered VTE/DVT Education [RC] PER UNIT ROUTINE Care 05/11/19 12:34 Ordered Vital Signs [RC] Q4H Care 05/11/19 12:34 Ordered Clear Liquid Diet [DIET] Diet 05/11/19 Breakfast Ordered BASIC METABOLIC PANEL,BMP [CHEM] AM Lab 05/12/19 05:11 Ordered CBC WITH AUTO DIFF [HEME] AM Lab 05/12/19 05:11 Ordered UA RFX TRES AND CULT IF INDIC [URIN] Stat Lab 05/11/19 09:46 Ordered LORazepam [Ativan] Med 05/11/19 12:33 Ordered See Protocol IVPUSH Q4H PRN Ondansetron [Zofran] Med 05/11/19 12:34 Ordered 4 mg IVPUSH Q4H PRN Promethazine [Phenergan] Med 05/11/19 12:34 Ordered 25 mg IM Q6H PRN Sodium Chloride 0.9% @ 125 MLS/HR (1000ml) Med 05/11/19 12:45 Ordered Sodium Chloride 0.9% [Normal Saline] 1,000 ml IV ASDIRECTED Sequential Compression Device [OM.PC] Per Unit Routine Oth 05/11/19 12:34 Ordered Resuscitation Status Routine Resus Stat 05/11/19 12:34 Ordered Assessment/Plan Comment:: 33 yo female admitted with gastritis likely viral or alcoholic in origin. We will hydrated with IV fluids and tread as need with antiemetics.
[2019-05-11] MEDS ORDERED: Pantoprazole 40 MG in Sodium Chloride 0.9% 10 ML IV SCH (12:45)
[2019-05-11] MEDS: Sodium Chloride 0.9% 1,000 ML IV SCH ×2 (13:03→20:58)
[2019-05-11] MEDS: LORazepam 2 MG/ML SDV IVPUSH PRN ×2 (13:10→20:40)
[2019-05-12] MEDS ORDERED: LORazepam 1 MG Tab PO PRN (04:02)
[2019-05-12] MEDS: Sodium Chloride 0.9% 1,000 ML IV SCH (04:26)
[2019-05-12 06:23] LABS: BLOOD UREA NITROGEN,BUN 7 mg/dL (7.0-18.0); CARBON DIOXIDE,CO2 22.4 mmol/L (21.0-32.0); CHLORIDE,CL 106 mmol/L (98-107); GLUCOSE RANDOM 85 mg/dL (74-106); POTASSIUM,K 3.4 mmol/L (3.5-5.1); SODIUM,NA 140 mmol/L (136-145)
[2019-05-12 07:55] VITALS: BP 104/56; PULSE 54
--- NOTE | 2019-05-12 10:37 | PCM.DCSUM1 ---
Discharge Summary - Discharge Data Discharge Date: 05/12/19 Discharge Disposition: Home, Self-Care 01 Condition: Good - Referral to Home Health Primary Care Physician: PCP None - Patient Summary/Data Hospital Course: 33 yo female who was admitted for gastritis. She presented with three day history of nausea, vomiting and abdominal pain. Her symptoms started after a night of binge drinking. She was treated with IV fluids and antiemetics. The following morning her symptoms resolved and she was discharged home. - Discharge Plan Home Medications: Home Meds . [No Known Home Meds] 05/09/19 [History] Patient Handouts: Alcohol Withdrawal Syndrome, [id number] Referrals: Ivette Izaguirre NP [Nurse Practitioner] - 05/18/19 9:45 am - Discharge Summary/Plan Comment DC Time >30 min.: No - Patient Data Vitals - Most Recent: Last Vital Signs Temp 36.2 C 05/12/19 07:53 Pulse 54 L 05/12/19 07:53 Resp 15 05/12/19 07:53 BP 104/56 L 05/12/19 07:53 Pulse Ox 98 05/12/19 07:53 Weight - Most Recent: 61.235 kg I&O - Last 24 hours: Intake & Output 05/11/19 05/12/19 05/12/19 22:59 06:59 14:59 Intake Total 568 2575 Output Total 500 750 Balance 68 1825 Lab Results - Last 24 hrs: Laboratory Results - last 24 hr 05/11/19 05/11/19 05/11/19 Range/Units 09:55 09:55 15:30 WBC (4.0-11.0) K/uL RBC (4.30-5.90) M/uL Hgb (12.0-16.0) g/dL Hct (36.0-46.0) % MCV (80.0-98.0) fL MCH (27.0-32.0) pg MCHC (31.0-37.0) g/dL RDW Std Deviation (28.0-62.0) fl RDW Coeff of Tonya (11.0-15.0) % Plt Count (150-400) K/uL MPV (7.40-12.00) fL Neut % (Auto) (48.0-80.0) % Lymph % (Auto) (16.0-40.0) % [place] % (Auto) (0.0-15.0) % Eos % (Auto) (0.0-7.0) % Baso % (Auto) (0.0-1.5) % Neut # (Auto) (1.4-5.7) K/uL Lymph # (Auto) (0.6-2.4) K/uL [place] # (Auto) (0.0-0.8) K/uL Eos # (Auto) (0.0-0.7) K/uL Baso # (Auto) (0.0-0.1) K/uL Nucleated RBC % /100WBC Nucleated RBCs # K/uL Sodium 139 (136-145) mmol/L Potassium 3.3 L (3.5-5.1) mmol/L Chloride 104 (98-107) mmol/L Carbon Dioxide 19.3 L (21.0-32.0) mmol/L BUN 12 (7.0-18.0) mg/dL Creatinine 0.9 (0.6-1.0) mg/dL Est Cr Clr Drug Dosing 83.23 mL/min Estimated GFR (MDRD) > 60.0 ml/min Glucose 100 (74-106) mg/dL Calcium 9.2 (8.5-10.1) mg/dL Total Bilirubin 1.2 H (0.2-1.0) mg/dL AST 20 (15-37) IU/L ALT 29 (14-63) IU/L Alkaline Phosphatase 45 L (46-116) U/L Total Protein 7.5 (6.4-8.2) g/dL Albumin 4.4 (3.4-5.0) g/dL Globulin 3.1 (2.6-4.0) g/dL Albumin/Globulin Ratio 1.4 (0.9-1.6) Lipase 240 (73-393) U/L Urine Color YELLOW Urine Appearance SLT CLOUDY Urine pH 6.5 (5.0-8.0) Ur Specific [place] 1.020 (1.001-1.035) Urine Protein 30 H (NEGATIVE) mg/dL Urine Glucose (UA) NEGATIVE (NEGATIVE) mg/dL Urine Ketones >=80 (NEGATIVE) mg/dL Urine Occult Blood MODERATE H (NEGATIVE) Urine Nitrite NEGATIVE (NEGATIVE) Urine Bilirubin NEGATIVE (NEGATIVE) Urine Urobilinogen 1.0 (<2.0) EU/dL Ur Leukocyte Esterase NEGATIVE (NEGATIVE) Urine RBC 2-4 (0-2/HPF) Urine WBC 2-4 (0-5/HPF) Ur Epithelial Cells MODERATE (NONE-FEW) Urine Bacteria FEW (NEGATIVE) Urine Mucus MODERATE (NONE-MOD) Ethyl Alcohol < 3.0 mg/dL 05/12/19 05/12/19 Range/Units 05:40 05:40 WBC 8.76 (4.0-11.0) K/uL RBC 3.66 L (4.30-5.90) M/uL Hgb 12.3 (12.0-16.0) g/dL Hct 36.6 (36.0-46.0) % MCV 100.0 H (80.0-98.0) fL MCH 33.6 H (27.0-32.0) pg MCHC 33.6 (31.0-37.0) g/dL RDW Std Deviation 45.9 (28.0-62.0) fl RDW Coeff of Tonya 13 (11.0-15.0) % Plt Count 171 (150-400) K/uL MPV 10.90 (7.40-12.00) fL Neut % (Auto) 75.6 (48.0-80.0) % Lymph % (Auto) 16.4 (16.0-40.0) % [place] % (Auto) 7.8 (0.0-15.0) % Eos % (Auto) 0.1 (0.0-7.0) % Baso % (Auto) 0.1 (0.0-1.5) % Neut # (Auto) 6.6 H (1.4-5.7) K/uL Lymph # (Auto) 1.4 (0.6-2.4) K/uL [place] # (Auto) 0.7 (0.0-0.8) K/uL Eos # (Auto) 0.0 (0.0-0.7) K/uL Baso # (Auto) 0.0 (0.0-0.1) K/uL Nucleated RBC % 0.0 /100WBC Nucleated RBCs # 0 K/uL Sodium 140 (136-145) mmol/L Potassium 3.4 L (3.5-5.1) mmol/L Chloride 106 (98-107) mmol/L Carbon Dioxide 22.4 (21.0-32.0) mmol/L BUN 7 (7.0-18.0) mg/dL Creatinine 0.7 (0.6-1.0) mg/dL Est Cr Clr Drug Dosing 107.01 mL/min Estimated GFR (MDRD) > 60.0 ml/min Glucose 85 (74-106) mg/dL Calcium 8.0 L (8.5-10.1) mg/dL Total Bilirubin (0.2-1.0) mg/dL AST (15-37) IU/L ALT (14-63) IU/L Alkaline Phosphatase (46-116) U/L Total Protein (6.4-8.2) g/dL Albumin (3.4-5.0) g/dL Globulin (2.6-4.0) g/dL Albumin/Globulin Ratio (0.9-1.6) Lipase (73-393) U/L Urine Color Urine Appearance Urine pH (5.0-8.0) Ur Specific [place] (1.001-1.035) Urine Protein (NEGATIVE) mg/dL Urine Glucose (UA) (NEGATIVE) mg/dL Urine Ketones (NEGATIVE) mg/dL Urine Occult Blood (NEGATIVE) Urine Nitrite (NEGATIVE) Urine Bilirubin (NEGATIVE) Urine Urobilinogen (<2.0) EU/dL Ur Leukocyte Esterase (NEGATIVE) Urine RBC (0-2/HPF) Urine WBC (0-5/HPF) Ur Epithelial Cells (NONE-FEW) Urine Bacteria (NEGATIVE) Urine Mucus (NONE-MOD) Ethyl Alcohol mg/dL GARRY Results - Last 24 hrs: Microbiology 05/11/19 10:03 Influenza Type A Antigen Screen - Final Nasopharyngeal Swab NEGATIVE INFLUENZA A VIRUS AG REFERENCE RANGE: NEGATIVE Influenza Type B Antigen Screen - Final NEGATIVE INFLUENZA B VIRUS AG REFERENCE RANGE: NEGATIVE Med Orders - Current: Current Medications Sodium Chloride (Normal Saline) 1,000 mls @ 125 mls/hr IV ASDIRECTED [facility] Last Admin: 05/12/19 04:26 Dose: 125 mls/hr Pantoprazole Sodium 40 mg/ (Sodium Chloride) 10 mls @ 300 mls/hr IV Q24H [facility] Last Admin: 05/11/19 13:02 Dose: 300 mls/hr Lorazepam (Ativan) 0 mg IVPUSH Q4H PRN; Protocol PRN Reason: [email or web address] Last Admin: 05/11/19 20:40 Dose: 1 mg Lorazepam (Ativan) 0 mg PO Q4H PRN; Protocol PRN Reason: Withdrawal Symptoms Last Admin: 05/12/19 04:23 Dose: 1 mg Ondansetron HCl (Zofran) 4 mg IVPUSH Q4H PRN PRN Reason: Nausea Last Admin: 05/12/19 01:59 Dose: 4 mg Promethazine HCl (Phenergan) 25 mg IM Q6H PRN PRN Reason: Nausea Last Admin: 05/11/19 13:11 Dose: 25 mg Discontinued Medications Chlordiazepoxide HCl (Librium) 25 mg PO ONETIME ONE Stop: 05/11/19 09:42 Last Admin: 05/11/19 10:00 Dose: 25 mg Multivitamins/Minerals 10 ml/Thiamine HCl 100 mg/ Folic Acid 1 mg/ Sodium Chloride 1,011.2 mls @ 999 mls/hr IV ONETIME ONE Stop: 05/11/19 10:40 Last Admin: 05/11/19 10:00 Dose: 999 mls/hr Lorazepam (Ativan) 1 mg IVPUSH ONETIME ONE Stop: 05/11/19 09:40 Last Admin: 05/11/19 10:00 Dose: 1 mg Ondansetron HCl (Zofran) 4 mg IVPUSH ONETIME ONE Stop: 05/11/19 09:41 Last Admin: 05/11/19 10:00 Dose: 4 mg Ondansetron HCl (Zofran) 4 mg IVPUSH ONETIME ONE Stop: 05/11/19 11:11 Last Admin: 05/11/19 11:21 Dose: 4 mg
== END 2019-05-12 11:20 | disposition home or self-care (01) ==
LOC: MW.ED 09:18 → MW.MS 10:52
PROVIDERS: ADMIT Internal Medicine; ATTEND Internal Medicine
DX: K29.70 Gastritis, unspecified, without bleeding (principal); K21.9 Gastro-esophageal reflux disease without esophagitis; F17.210 Nicotine dependence, cigarettes, uncomplicated
CPT/HCPCS: 36415; 71045; 80048; 80053; 80320; 81001; 83690; 85025; 87804; 96365; 96375; 96376; 99285; A9270; C9113; J2060; J2405; J2550; J3411; J7040; J7050; 96361; 96372; G0378; G0480

== ENCOUNTER 2019-09-22 13:32 | Emergency (ER) | payer MEDICAID, OTHER ==
[2019-09-22] MEDS ORDERED: LORazepam 2 MG/ML SDV IVPUSH ONE (13:48)
[2019-09-22] MEDS ORDERED: Sodium Chloride 0.9% 20 ML SDV FLUSH ONE (13:51)
--- NOTE | 2019-09-22 13:53 | EDM.PDOC ---
ED HPI GENERAL MEDICAL PROBLEM - General Chief Complaint: Chest Pain Stated Complaint: CHEST PAIN/VOMITING/SOB Time Seen by Provider: 09/22/19 13:47 Source of Information: Reports: Patient History Limitations: Reports: No Limitations - History of Present Illness INITIAL COMMENTS - FREE TEXT/NARRATIVE: This 33 year old female is admitted to the ED with a chief complaint of chest pain and SOB that started one hour prior to arrival to the ED. She states that the pain is more like of pressure and that her SOB she is not sure but she feels if though it is. She denies any radiation of pain into her upper extremities or into her jaw. She complains of numbness around her lips with tingling in her arms and legs. She complains of nausea and vomiting today. She denies any drug use. She states that she had a similar problem in April 2019. She does not have a history of heart disease, hypertension, diabetes mellitus or hyperlipidemias. Onset: Sudden Duration: Getting Worse Location: Reports: Chest (pressure) Severity: Mild Chest/Legs Pain Score (Numeric/FACES): 8 - Related Data Allergies Allergy/AdvReac Type Severity Reaction Status Date / Time No Known Allergies Allergy Verified 09/22/19 13:34 Home Meds: Home Meds . 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 - Infectious Disease History Infectious Disease History: Reports: Chicken Pox - Past Surgical History HEENT Surgical History: Reports: None Cardiovascular Surgical History: Reports: None Social & Family History - Family History Family Medical History: Noncontributory - Tobacco Use Smoking Status *Q: Current Every Day Smoker Years of Tobacco use: 15 Packs/Tins Daily: 1 - Caffeine Use Caffeine Use: Reports: Tea Other Caffeine Use: Headache medicine - Recreational Drug Use Recreational Drug Use: No Recreational Drug Type: Reports: Marijuana/Hashish ED ROS GENERAL - Review of Systems Review Of Systems: See Below Constitutional: Reports: No Symptoms HEENT: Reports: No Symptoms Respiratory: Reports: Shortness of Breath Cardiovascular: Reports: Chest Pain Endocrine: Reports: No Symptoms GI/Abdominal: Reports: Nausea, Vomiting : Reports: No Symptoms Musculoskeletal: Reports: No Symptoms Skin: Reports: No Symptoms Neurological: Reports: No Symptoms ED EXAM, GENERAL - Physical Exam Exam: See Below Exam Limited By: No Limitations General Appearance: Alert, WD/WN, Anxious Eye Exam: Bilateral Eye: EOMI, Normal Inspection, PERRL (3.5mm) Ears: Normal External Exam, Normal Canal, Hearing Grossly Normal, Normal TMs Nose: Normal Inspection, Normal Mucosa Throat/Mouth: Normal Inspection, Normal Lips, Normal Oropharynx, Normal Voice Head: Atraumatic, Normocephalic Neck: Normal Inspection, Supple, Full Range of Motion. No: Carotid Bruit Respiratory/Chest: No Respiratory Distress, Lungs Clear, Normal Breath Sounds, Chest Non-Tender Cardiovascular: Normal Peripheral Pulses, Regular Rate, Rhythm, No Edema, No Gallop, No JVD, No Murmur, No Rub Peripheral Pulses: 3+: Radial (L), Radial (R), Dorsalis Pedis (L), 4+: Dorsalis Pedis (R) GI/Abdominal: Normal Bowel Sounds, Soft, Non-Tender, No Organomegaly, No Abnormal Bruit (Female) Exam: Deferred Rectal (Female) Exam: Deferred Back Exam: Normal Inspection Extremities: Normal Inspection, Normal Range of Motion, Normal Capillary Refill , Pedal Edema Neurological: Alert, Oriented (times 3), CN II-XII Intact, Normal Reflexes, No Motor/Sensory Deficits Psychiatric: Anxious Skin Exam: Warm, Dry, Intact, Normal Color, No Rash Lymphatic: No Adenopathy Course - Vital Signs Text/Narrative:: I reviewed with the patient all of her diagnostic test including her negative CT of the abdomen and pelvis. I told her that she should be admitted to OBS in that she was still having abdominal pain and frequent vomiting. The patient refused admission and states that she will sign out against medical advice. I expressed my concerns with her regarding her signing out against medical advice which includes . She states that she understands but will still sign out. I went back to try to convince Ms. Rojas to stay along with her nurse ( Sabina) at 6:40PM who stated that her blood pressure was low. I reiterated that she could if she does not get admitted for further evaluation and treatment. Again, the patient refused and signed out. Last Recorded V/S: Last Vital Signs Temp 97.4 F 09/22/19 15:22 Pulse 68 09/22/19 18:43 Resp 18 09/22/19 18:43 BP 91/47 L 09/22/19 18:43 Pulse Ox 99 09/22/19 18:43 - Orders/Labs/Meds Orders: Active Orders 24 hr Category Date Time Status EKG 12 Lead [EKG Documentation Completion] [RC] STAT Care 09/22/19 13:42 Active EKG Documentation Completion [RC] STAT Care 09/22/19 13:48 Inactive Labs: Laboratory Tests 09/22/19 09/22/19 09/22/19 Range/Units 13:55 13:55 13:55 WBC 16.20 H (4.0-11.0) K/uL RBC 4.32 (4.30-5.90) M/uL Hgb 14.9 (12.0-16.0) g/dL Hct 42.5 (36.0-46.0) % MCV 98.4 H (80.0-98.0) fL MCH 34.5 H (27.0-32.0) pg MCHC 35.1 (31.0-37.0) g/dL RDW Std Deviation 46.2 (28.0-62.0) fl RDW Coeff of Tonya 13 (11.0-15.0) % Plt Count 291 (150-400) K/uL MPV 10.60 (7.40-12.00) fL Neut % (Auto) 91.2 H (48.0-80.0) % Lymph % (Auto) 4.4 L (16.0-40.0) % [place] % (Auto) 4.3 (0.0-15.0) % Eos % (Auto) 0.0 (0.0-7.0) % Baso % (Auto) 0.1 (0.0-1.5) % Neut # (Auto) 14.8 H (1.4-5.7) K/uL Lymph # (Auto) 0.7 (0.6-2.4) K/uL [place] # (Auto) 0.7 (0.0-0.8) K/uL Eos # (Auto) 0.0 (0.0-0.7) K/uL Baso # (Auto) 0.0 (0.0-0.1) K/uL Nucleated RBC % 0.0 /100WBC Nucleated RBCs # 0 K/uL D-Dimer, Quantitative < 0.19 (0.0-0.50) mg/L FEU Sodium 141 (136-145) mmol/L Potassium 3.7 (3.5-5.1) mmol/L Chloride 101 (98-107) mmol/L Carbon Dioxide 17.1 L (21.0-32.0) mmol/L BUN 12 (7.0-18.0) mg/dL Creatinine 1.1 H (0.6-1.0) mg/dL Est Cr Clr Drug Dosing 67.72 mL/min Estimated GFR (MDRD) 57.2 ml/min Glucose 148 H (74-106) mg/dL Calcium 10.3 H (8.5-10.1) mg/dL Magnesium 1.6 L (1.8-2.4) mg/dL Total Bilirubin 1.0 (0.2-1.0) mg/dL AST 18 (15-37) IU/L ALT 23 (14-63) IU/L Alkaline Phosphatase 58 (46-116) U/L Troponin I < 0.050 (0.000-0.056) ng/mL Total Protein 7.8 (6.4-8.2) g/dL Albumin 4.9 (3.4-5.0) g/dL Globulin 2.9 (2.6-4.0) g/dL Albumin/Globulin Ratio 1.7 H (0.9-1.6) HCG, Qual (NEG) Urine Color Urine Appearance Urine pH (5.0-8.0) Ur Specific [place] (1.001-1.035) Urine Protein (NEGATIVE) mg/dL Urine Glucose (UA) (NEGATIVE) mg/dL Urine Ketones (NEGATIVE) mg/dL Urine Occult Blood (NEGATIVE) Urine Nitrite (NEGATIVE) Urine Bilirubin (NEGATIVE) Urine Ictotest Urine Urobilinogen (<2.0) EU/dL Ur Leukocyte Esterase (NEGATIVE) Urine RBC (0-2/HPF) Urine WBC (0-5/HPF) Ur Epithelial Cells (NONE-FEW) Urine Bacteria (NEGATIVE) Urine Mucus (NONE-MOD) Urine Opiates Screen (NEGATIVE) Ur Oxycodone Screen (NEGATIVE) Urine Methadone Screen (NEGATIVE) Ur Barbiturates Screen (NEGATIVE) Ur Phencyclidine Scrn (NEGATIVE) Ur Amphetamine Screen (NEGATIVE) U Methamphetamines Scrn (NEGATIVE) U Benzodiazepines Scrn (NEGATIVE) U Cocaine Metab Screen (NEGATIVE) U Marijuana (THC) Screen (NEGATIVE) 09/22/19 09/22/19 09/22/19 Range/Units 13:55 15:15 15:15 WBC (4.0-11.0) K/uL RBC (4.30-5.90) M/uL Hgb (12.0-16.0) g/dL Hct (36.0-46.0) % MCV (80.0-98.0) fL MCH (27.0-32.0) pg MCHC (31.0-37.0) g/dL RDW Std Deviation (28.0-62.0) fl RDW Coeff of Tonya (11.0-15.0) % Plt Count (150-400) K/uL MPV (7.40-12.00) fL Neut % (Auto) (48.0-80.0) % Lymph % (Auto) (16.0-40.0) % [place] % (Auto) (0.0-15.0) % Eos % (Auto) (0.0-7.0) % Baso % (Auto) (0.0-1.5) % Neut # (Auto) (1.4-5.7) K/uL Lymph # (Auto) (0.6-2.4) K/uL [place] # (Auto) (0.0-0.8) K/uL Eos # (Auto) (0.0-0.7) K/uL Baso # (Auto) (0.0-0.1) K/uL Nucleated RBC % /100WBC Nucleated RBCs # K/uL D-Dimer, Quantitative (0.0-0.50) mg/L FEU Sodium (136-145) mmol/L Potassium (3.5-5.1) mmol/L Chloride (98-107) mmol/L Carbon Dioxide (21.0-32.0) mmol/L BUN (7.0-18.0) mg/dL Creatinine (0.6-1.0) mg/dL Est Cr Clr Drug Dosing mL/min Estimated GFR (MDRD) ml/min Glucose (74-106) mg/dL Calcium (8.5-10.1) mg/dL Magnesium (1.8-2.4) mg/dL Total Bilirubin (0.2-1.0) mg/dL AST (15-37) IU/L ALT (14-63) IU/L Alkaline Phosphatase (46-116) U/L Troponin I (0.000-0.056) ng/mL Total Protein (6.4-8.2) g/dL Albumin (3.4-5.0) g/dL Globulin (2.6-4.0) g/dL Albumin/Globulin Ratio (0.9-1.6) HCG, Qual NEGATIVE (NEG) Urine Color DARK YELLOW Urine Appearance HAZY Urine pH 8.0 (5.0-8.0) Ur Specific [place] 1.020 (1.001-1.035) Urine Protein 30 H (NEGATIVE) mg/dL Urine Glucose (UA) NEGATIVE (NEGATIVE) mg/dL Urine Ketones >=80 (NEGATIVE) mg/dL Urine Occult Blood TRACE-INTACT H (NEGATIVE) Urine Nitrite NEGATIVE (NEGATIVE) Urine Bilirubin SMALL H (NEGATIVE) Urine Ictotest NEGATIVE Urine Urobilinogen 1.0 (<2.0) EU/dL Ur Leukocyte Esterase NEGATIVE (NEGATIVE) Urine RBC 1-3 (0-2/HPF) Urine WBC 3-6 (0-5/HPF) Ur Epithelial Cells MODERATE (NONE-FEW) Urine Bacteria FEW (NEGATIVE) Urine Mucus HEAVY (NONE-MOD) Urine Opiates Screen NEGATIVE (NEGATIVE) Ur Oxycodone Screen NEGATIVE (NEGATIVE) Urine Methadone Screen NEGATIVE (NEGATIVE) Ur Barbiturates Screen NEGATIVE (NEGATIVE) Ur Phencyclidine Scrn NEGATIVE (NEGATIVE) Ur Amphetamine Screen NEGATIVE (NEGATIVE) U Methamphetamines Scrn NEGATIVE (NEGATIVE) U Benzodiazepines Scrn NEGATIVE (NEGATIVE) U Cocaine Metab Screen NEGATIVE (NEGATIVE) U Marijuana (THC) Screen POSITIVE (NEGATIVE) Meds: Medications Discontinued Medications Generic Name Dose Route Start Last Admin Trade Name Freq PRN Reason Stop Dose Admin Al Hydroxide/Mg Hydroxide 15 0 ml 09/22/19 14:52 09/22/19 15:00 ml/ Metoclopramide HCl 5 mg/ PO 09/22/19 14:53 1 each Lidocaine HCl 5 ml ONETIME ONE Administration Magnesium Sulfate 50 mls @ 25 mls/hr 09/22/19 15:00 09/22/19 15:21 Magnesium Sulfate In Water Premix IV 09/22/19 16:59 25 mls/hr ONETIME ONE Administration Sodium Chloride 1,000 mls @ 999 mls/hr 09/22/19 15:15 09/22/19 15:21 Normal Saline IV 09/22/19 16:15 999 mls/hr .Bolus ONE Administration Pantoprazole Sodium 40 mg/ 20 mls @ 420 mls/hr 09/22/19 16:19 09/22/19 17:01 Sodium Chloride IVPUSH 09/22/19 16:21 420 mls/hr ONETIME ONE Administration Lorazepam 0.5 mg 09/22/19 13:48 09/22/19 13:58 Ativan IVPUSH 09/22/19 13:49 0.5 mg ONETIME ONE Administration Magnesium Sulfate 2 gm 09/22/19 14:56 Magnesium Sulfate 50% IV 09/22/19 14:57 ONETIME ONE Ondansetron HCl Confirm 09/22/19 13:58 09/22/19 14:03 Zofran Administered 09/22/19 13:59 Not Given Dose 4 mg .ROUTE .STK-MED ONE Ondansetron HCl 4 mg 09/22/19 14:02 09/22/19 14:03 Zofran IVPUSH 09/22/19 14:03 4 mg ONETIME ONE Administration Promethazine HCl 25 mg 09/22/19 16:10 09/22/19 16:16 Phenergan IM 09/22/19 16:11 25 mg ONETIME ONE Administration Sodium Chloride 20 ml 09/22/19 13:51 09/22/19 14:03 Normal Saline FLUSH 09/22/19 13:52 Not Given ONETIME ONE Departure - Departure Time of Disposition: 18:48 Disposition: Against Medical Advice 07 Condition: Fair Clinical Impression: Abdominal pain of unknown etiology Chest pain Qualifiers: Chest pain type: unspecified Qualified Code(s): R07.9 - Chest pain, unspecified Referrals: PCP,Unknown [Primary Care Provider] - Forms: ED Department Discharge Sepsis Event Note - Evaluation Sepsis Screening Result: No Definite Risk - Focused Exam Vital Signs: Vital Signs Temp Pulse Resp BP Pulse Ox 09/22/19 18:43 68 18 91/47 L 99 09/22/19 15:22 97.4 F 60 18 116/65 100 09/22/19 13:35 97.5 F 77 22 H 129/102 H 100 Date Exam was Performed: 09/22/19 Time Exam was Performed: 18:58 - My Orders Last 24 Hours: My Active Orders 09/22/19 13:42 EKG 12 Lead [EKG Documentation Completion] [RC] STAT 09/22/19 13:48 EKG Documentation Completion [RC] STAT - Assessment/Plan Last 24 Hours: My Active Orders 09/22/19 13:42 EKG 12 Lead [EKG Documentation Completion] [RC] STAT 09/22/19 13:48 EKG Documentation Completion [RC] STAT
[2019-09-22] MEDS ORDERED: Ondansetron 4 MG/2 ML SDV ONE (13:58)
[2019-09-22] MEDS ORDERED: Ondansetron 4 MG/2 ML SDV IVPUSH ONE (14:02)
[2019-09-22 14:26] LABS: BLOOD UREA NITROGEN,BUN 12 mg/dL (7.0-18.0); CARBON DIOXIDE,CO2 17.1 mmol/L (21.0-32.0); CHLORIDE,CL 101 mmol/L (98-107); GLUCOSE RANDOM 148 mg/dL (74-106); POTASSIUM,K 3.7 mmol/L (3.5-5.1); SODIUM,NA 141 mmol/L (136-145)
[2019-09-22] MEDS ORDERED: Alum Hydrox/Mag Hydrox/Simeth 15 ML, Metoclopramide 5 MG, Lidocaine 2% 5 ML PO ONE ×3 (14:52)
[2019-09-22] MEDS ORDERED: Magnesium Sulfate (4.06 MEQ/ML) 5 GM/10 ML SDV IV ONE (14:56)
[2019-09-22] MEDS ORDERED: Magnesium Sulfate/Water 50 ML IV ONE (15:00)
[2019-09-22] MEDS ORDERED: Sodium Chloride 0.9% 1,000 ML IV ONE (15:15)
--- NOTE | 2019-09-22 15:19 | CR ---
Chest: AP portable view of the chest was obtained. Comparison: Prior chest x-ray of 05/11/19. Slight tenting of the left hemidiaphragm is noted. This appears as a stable finding. Lungs are clear with no acute parenchymal change. Heart size and mediastinum are normal. Bony structures show nothing acute. Impression: 1. Nothing acute is appreciated on portable chest x-ray. Diagnostic code #2 Study was dictated in MDT
[2019-09-22] MEDS ORDERED: Promethazine 25 MG/ML SDV IM ONE (16:10)
[2019-09-22] MEDS ORDERED: Pantoprazole 40 MG in Sodium Chloride 0.9% 20 ML IVPUSH ONE (16:19)
--- NOTE | 2019-09-22 17:24 | CT ---
CT abdomen and pelvis Technique: Multiple axial sections were obtained from above the dome of the diaphragm inferiorly to the pubic symphysis. Intravenous contrast was utilized. No oral contrast has been given. Comparison: Previous CT abdomen and pelvis exam of 05/09/19 is available which is a noncontrast exam. Findings: Visualized lung bases show nothing acute. Liver contains no focal parenchymal abnormality. Adrenal glands show no nodule. Small calcification is seen within the spleen which is stable. Adrenal glands show no nodule. Kidneys show symmetric contrast enhancement without hydronephrosis or mass. Aorta shows no aneurysm. No retroperitoneal adenopathy or mesenteric abnormalities are seen. Gallbladder contains no calcified gallstones. IUD is noted within the uterus. No pelvic mass or adenopathy is seen. No free fluid or inflammatory change is identified. Appendix is seen which is normal in size. Bone window settings were reviewed. No acute osseous finding is appreciated. Impression: 1. Nothing acute is identified on CT study of the abdomen and pelvis. Diagnostic code #1 Study was dictated in MDT
[2019-09-22 18:44] VITALS: BP 91/47; PULSE 68
== END 2019-09-22 18:46 | disposition left against medical advice (07) ==
LOC: MW.ED 13:32
DX: R07.89 Other chest pain (principal); R10.9 Unspecified abdominal pain; F17.210 Nicotine dependence, cigarettes, uncomplicated
CPT/HCPCS: 36415; 71045; 74177; 80053; 80305; 81001; 83735; 84484; 84703; 85025; 85379; 93005; 96365; 96366; 96372; 96375; 99285; A9270; C9113; J2060; J2405; J2550; J3475; J7030; 99284

== ENCOUNTER 2019-09-27 01:27 | Emergency (ER) | payer MEDICAID, OTHER ==
[2019-09-27] MEDS ORDERED: HYDROmorphone 1 MG/ML Syringe IVPUSH ONE (01:35)
[2019-09-27] MEDS ORDERED: Ondansetron 4 MG/2 ML SDV IVPUSH ONE (01:35)
--- NOTE | 2019-09-27 01:40 | EDM.PDOC ---
ED HPI GENERAL MEDICAL PROBLEM - General Chief Complaint: Abdominal Pain Stated Complaint: ABDOMINAL PAIN Time Seen by Provider: 09/27/19 01:37 Source of Information: Reports: Patient - History of Present Illness INITIAL COMMENTS - FREE TEXT/NARRATIVE: Patient is a 33-year-old female who returns to the ER secondary to abdominal pain. The patient was seen here several days ago for the same type of pain and had an extensive work-up which included a negative CT scan of the abdomen and pelvis. The patient states she has been doing fine until this evening. She had some pizza rolls with the kids for dinner and then after going to bed the patient woke up with severe right upper quadrant abdominal pain that radiates onto the right side of her back. She also has a lot of nausea and vomiting. No left-sided pain, no lower abdominal pain. No fevers, no chills, no other acute complaints. 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 - Infectious Disease History Infectious Disease History: Reports: Chicken Pox - Past Surgical History HEENT Surgical History: Reports: None Cardiovascular Surgical History: Reports: None Social & Family History - Family History Family Medical History: Noncontributory - Caffeine Use Caffeine Use: Reports: Tea Other Caffeine Use: Headache medicine ED ROS GENERAL - Review of Systems Review Of Systems: See Below (Positive for right upper quadrant abdominal pain, positive for nausea vomiting, negative fevers, negative for chills, all other Positives and pertinent negatives as per HPI. All other pertinent systems were reviewed and are negative) ED EXAM, GI/ABD - Physical Exam Exam: See Below Text/Narrative:: Constitutional: Thin body habitus, appears to be having colicky pain HEENT.: Normocephalic, Atraumatic, PERRL, EOMI, External ears are atraumatic, nares are patent without epistaxis Neck: Normal range of motion, Trachea Midline, No stridor Respiratory.: No respiratory distress, No tachypnea, Lungs Clear to Auscultation bilaterally without wheezes, rales, or rhonchi Cardiovascular.: Regular rate and Rhythm without murmurs, rubs, or gallops, good peripheral perfusion GI: Abdomen is tense and tender in the right upper quadrant, no rebound Genital Urinary: Deferred Musculoskeletal: Good range of motion. All 4 extremities present and atraumatic , no edema Back: Full Range of Motion Skin: Warm, Dry, Color is ethnicity appropriate, No acute rash. Lymphatic: No lymphadenopathy noted Neurological: Alert, Awake and oriented x 3, No focal deficits noted appreciate , GCS 15 Psych: Affect, Judgement, mood normal Course - Vital Signs Text/Narrative:: Given the entire history and exam and previous work-up, I have very low suspicion for cardiopulmonary processes such as a pulmonary embolus, right lower lobe pneumonia, pleural effusion, pulmonary infarction, etc. Given her current presentation my clinical suspicion for biliary colic is very high. Repeat abdominal work-up minus urinalysis will be performed which will include lab work and the patient will be given Dilaudid 1 mg IV and Zofran 4 mg IV and will also get a gallbladder ultrasound. The patient is currently feeling better and all of her lab work is unremarkable. Now that the patient is feeling better she states that this is also happened to her before and she was admitted to the hospital in [place] for nausea and vomiting and abdominal pain. She has not had any primary care follow-up as of yet. I spoke with her in detail that until proven otherwise her history and exam sound like biliary colic and she needs an outpatient HIDA scan and/or gastroenterology follow-up. She will be given a prescription for Zofran 4 mg ODT tablets as well as hyoscyamine 0.125 mg sublingual tablets. Last Recorded V/S: Last Vital Signs Temp 36.2 C 09/27/19 01:35 Pulse 80 09/27/19 02:00 Resp 18 09/27/19 02:00 BP 91/55 L 09/27/19 02:00 Pulse Ox 96 09/27/19 02:00 - Orders/Labs/Meds Labs: Laboratory Tests 09/27/19 09/27/19 Range/Units 01:45 01:45 WBC 9.63 (4.0-11.0) K/uL RBC 4.16 L (4.30-5.90) M/uL Hgb 14.3 (12.0-16.0) g/dL Hct 41.0 (36.0-46.0) % MCV 98.6 H (80.0-98.0) fL MCH 34.4 H (27.0-32.0) pg MCHC 34.9 (31.0-37.0) g/dL RDW Std Deviation 46.5 (28.0-62.0) fl RDW Coeff of Tonya 13 (11.0-15.0) % Plt Count 236 (150-400) K/uL MPV 10.40 (7.40-12.00) fL Neut % (Auto) 48.2 (48.0-80.0) % Lymph % (Auto) 42.4 H (16.0-40.0) % [place] % (Auto) 7.0 (0.0-15.0) % Eos % (Auto) 2.2 (0.0-7.0) % Baso % (Auto) 0.2 (0.0-1.5) % Neut # (Auto) 4.7 (1.4-5.7) K/uL Lymph # (Auto) 4.1 H (0.6-2.4) K/uL [place] # (Auto) 0.7 (0.0-0.8) K/uL Eos # (Auto) 0.2 (0.0-0.7) K/uL Baso # (Auto) 0.0 (0.0-0.1) K/uL Nucleated RBC % 0.0 /100WBC Nucleated RBCs # 0 K/uL Sodium 141 (136-145) mmol/L Potassium 3.6 (3.5-5.1) mmol/L Chloride 104 (98-107) mmol/L Carbon Dioxide 23.4 (21.0-32.0) mmol/L BUN 9 (7.0-18.0) mg/dL Creatinine 0.8 (0.6-1.0) mg/dL Est Cr Clr Drug Dosing 93.11 mL/min Estimated GFR (MDRD) > 60.0 ml/min Glucose 114 H (74-106) mg/dL Calcium 8.8 (8.5-10.1) mg/dL Total Bilirubin 0.2 (0.2-1.0) mg/dL AST 13 L (15-37) IU/L ALT 25 (14-63) IU/L Alkaline Phosphatase 46 (46-116) U/L Total Protein 6.8 (6.4-8.2) g/dL Albumin 4.1 (3.4-5.0) g/dL Globulin 2.7 (2.6-4.0) g/dL Albumin/Globulin Ratio 1.5 (0.9-1.6) Lipase 186 (73-393) U/L Meds: Medications Discontinued Medications Generic Name Dose Route Start Last Admin Trade Name Freq PRN Reason Stop Dose Admin Hydromorphone HCl 1 mg 09/27/19 01:35 09/27/19 01:48 Dilaudid IVPUSH 09/27/19 01:36 1 mg ONETIME ONE Administration Ondansetron HCl 4 mg 09/27/19 01:35 09/27/19 01:47 Zofran IVPUSH 09/27/19 01:36 4 mg ONETIME ONE Administration Departure - Departure Time of Disposition: 02:49 Disposition: Home, Self-Care 01 Condition: Good Clinical Impression: Abdominal pain, Vomiting - Discharge Information Referrals: PCP,None [Primary Care Provider] - Forms: ED Department Discharge Additional Instructions: Your pain and vomiting sound like Biliary Colic - You should have an outpatient HIDA scan. Biliary colic is a pain in the upper abdomen. The pain: Is usually felt on the right side of the abdomen, but it may also be felt in the center of the abdomen, just below the breastbone (sternum). May spread back toward the right shoulder blade. May be steady or irregular. May be accompanied by nausea and vomiting. Most of the time, the pain goes away in 1-5 hours. After the most intense pain passes, the abdomen may continue to ache mildly for about 24 hours. Biliary colic is caused by a blockage in the bile duct. The bile duct is a pathway that carries bile-a liquid that helps to digest fats-from the gallbladder to the small intestine. Biliary colic usually occurs after eating, when the digestive system demands bile. The pain develops when muscle cells contract forcefully to try to move the blockage so that bile can get by. HOME CARE INSTRUCTIONS Drink enough fluid to keep your urine clear or pale yellow. Avoid fatty, greasy, and fried foods. These kinds of foods increase your body' s demand for bile. Avoid any foods that make your pain worse. Avoid overeating. Avoid having a large meal after fasting. SEEK MEDICAL CARE IF: You develop a fever and pain Your pain is uncontrolled Your vomiting is uncontrolled Or any other concerns Sepsis Event Note - Focused Exam Vital Signs: Vital Signs Temp Pulse Resp BP Pulse Ox 09/27/19 02:00 80 18 91/55 L 96 09/27/19 01:35 36.2 C 74 18 114/73 98 Date Exam was Performed: 09/27/19 Time Exam was Performed: 02:47
[2019-09-27 02:15] LABS: BLOOD UREA NITROGEN,BUN 9 mg/dL (7.0-18.0); CARBON DIOXIDE,CO2 23.4 mmol/L (21.0-32.0); CHLORIDE,CL 104 mmol/L (98-107); GLUCOSE RANDOM 114 mg/dL (74-106); LIPASE 186 U/L (73-393); POTASSIUM,K 3.6 mmol/L (3.5-5.1); SODIUM,NA 141 mmol/L (136-145)
--- NOTE | 2019-09-27 02:27 | US ---
INDICATION: Right upper quadrant abdomen pain TECHNIQUE: Ultrasound abdomen limited. Sonographic images of the right upper quadrant were obtained using monroy-scale and color Doppler images. COMPARISON: None FINDINGS: Liver: Normal in size and echotexture. No masses. No intrahepatic biliary dilatation. Gallbladder: No stones or sludge. Normal wall thickness. No pericholecystic fluid. Common bile duct: 3 mm. Pancreas: Normal. Right kidney: Normal in size. Normal echotexture and cortex. No masses, stones, or hydronephrosis. Vasculature: Proximal abdominal aorta and IVC are normal. IMPRESSION: Unremarkable right upper quadrant ultrasound. Dictated by Ron Bal MD @ Sep 27 2019 2:24AM Signed by Dr. Ron Bal @ Sep 27 2019 2:26AM
[2019-09-27 03:44] VITALS: BP 87/63; PULSE 63
== END 2019-09-27 03:15 | disposition home or self-care (01) ==
LOC: MW.ED 01:27
DX: R10.11 Right upper quadrant pain (principal); R11.2 Nausea with vomiting, unspecified
CPT/HCPCS: 36415; 76705; 80053; 83690; 85025; 96374; 96375; 99284; J1170; J2405; 99283

== ENCOUNTER 2019-10-21 15:06 | Emergency (ER) | payer SELFPAY ==
[2019-10-21] MEDS ORDERED: Ondansetron 4 MG/2 ML SDV IVPUSH ONE (15:21)
[2019-10-21] MEDS ORDERED: Sodium Chloride 0.9% 1,000 ML IV ONE (15:21)
[2019-10-21] MEDS ORDERED: Haloperidol Lactate 5 MG/ML SDV IM ONE (15:22)
[2019-10-21] MEDS ORDERED: Morphine 4 MG/ML Syringe IVPUSH ONE (15:22)
--- NOTE | 2019-10-21 15:25 | EDM.PDOC ---
ED HPI GENERAL MEDICAL PROBLEM - General Chief Complaint: Abdominal Pain Stated Complaint: STOMACH PAIN Time Seen by Provider: 10/21/19 15:13 - History of Present Illness INITIAL COMMENTS - FREE TEXT/NARRATIVE: 35-year-old female with a prior history of alcohol abuse as well as a number of presentations for abdominal pain in the past primarily since April 2019 is presenting with abdominal pain. Patient states that "the same thing that happened before." She reports severe epigastric abdominal pain associated with nausea and vomiting and inability to slow her breathing and tenseness of her body associated with severe fatigue. She denies fever she denies prior abdominal surgeries. Symptoms constant and severe without alleviating factors. In the past she has had extensive blood work as well as CT abdomen pelvis for similar presentations. No definitive etiology has been found. Patient has had negative UDS in the past including for marijuana. abdomen Pain Score (Numeric/FACES): 8 - Related Data Allergies Allergy/AdvReac Type Severity Reaction Status Date / Time No Known Allergies Allergy Verified 10/21/19 15:12 Home Meds: Home Meds Hyoscyamine Sulfate [Anaspaz] 0.125 mg PO Q4HR PRN 5 Days #20 tab.rapdis [Rx] Ondansetron [Zofran ODT] 4 mg PO Q4H PRN 5 Days #20 tab.dis 09/27/19 [Rx] Past Medical History - Past Health History Medical/Surgical History: Denies Medical/Surgical History HEENT History: Reports: None Cardiovascular History: Reports: None Respiratory History: Reports: None Gastrointestinal History: Reports: None Genitourinary History: Reports: None 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 Endocrine/Metabolic History: Reports: None Insulin Pump Model and Integration Director: None Hematologic History: Reports: None Immunologic History: Reports: None Oncologic (Cancer) History: Reports: None Dermatologic History: Reports: None - Infectious Disease History Infectious Disease History: Reports: None - Past Surgical History Head Surgeries/Procedures: Reports: None HEENT Surgical History: Reports: None Cardiovascular Surgical History: Reports: None Social & Family History - Family History Family Medical History: Noncontributory - Tobacco Use Smoking Status *Q: Current Every Day Smoker Years of Tobacco use: 16 Packs/Tins Daily: 1 - Caffeine Use Caffeine Use: Reports: Tea Other Caffeine Use: Headache medicine - Recreational Drug Use Recreational Drug Use: No ED ROS GENERAL - Review of Systems Review Of Systems: See Below Free Text/Narrative/Comment: General: No fever. Skin: No rash. Eyes: No vision problems. ENT: No sore throat. Neck: No neck stiffness. Respiratory: Per HPI Cardiac: No chest pain. Gastrointestinal: Per HPI Urinary: No dysuria. Musculoskeletal: No myalgias/arthralgias. Neurologic: No headache. ED EXAM, GENERAL - Physical Exam Exam: See Below Free Text/Narrative:: General Appearance: Very uncomfortable and quite anxious but nontoxic in appearance, writhing around in bed. Skin: No rash HEENT: Normocephalic/atraumatic, sclera anicteric, mucous membranes moist Neck: Normal range of motion Chest and Lungs: Bilateral breath sounds, clear to auscultation Cardiovascular: Regular rate and rhythm, no murmur Abdomen: No focality but limited by current condition Back: Normal Musculoskeletal: No edema or tenderness Neurologic: Awake, alert, no obvious deficits, moving all extremities Course - Vital Signs Last Recorded V/S: Last Vital Signs Temp 97.1 F 10/21/19 15:13 Pulse 70 10/21/19 17:17 Resp 16 10/21/19 17:17 BP 102/54 L 10/21/19 17:17 Pulse Ox 94 L 10/21/19 17:17 - Orders/Labs/Meds Orders: Active Orders 24 hr Category Date Time Status Abdomen Pelvis w Cont [CT] Stat Exams 10/21/19 15:45 Ordered Chest 1V Frontal [CR] Stat Exams 10/21/19 16:00 Ordered Labs: Laboratory Tests 10/21/19 10/21/19 10/21/19 Range/Units 15:15 15:15 15:15 WBC 15.06 H (4.0-11.0) K/uL RBC 4.61 (4.30-5.90) M/uL Hgb 15.8 (12.0-16.0) g/dL Hct 44.8 (36.0-46.0) % MCV 97.2 (80.0-98.0) fL MCH 34.3 H (27.0-32.0) pg MCHC 35.3 (31.0-37.0) g/dL RDW Std Deviation 44.2 (28.0-62.0) fl RDW Coeff of Tonya 12 (11.0-15.0) % Plt Count 317 (150-400) K/uL MPV 10.80 (7.40-12.00) fL Neut % (Auto) 76.7 (48.0-80.0) % Lymph % (Auto) 15.9 L (16.0-40.0) % [place] % (Auto) 7.2 (0.0-15.0) % Eos % (Auto) 0.1 (0.0-7.0) % Baso % (Auto) 0.1 (0.0-1.5) % Neut # (Auto) 11.5 H (1.4-5.7) K/uL Lymph # (Auto) 2.4 (0.6-2.4) K/uL [place] # (Auto) 1.1 H (0.0-0.8) K/uL Eos # (Auto) 0.0 (0.0-0.7) K/uL Baso # (Auto) 0.0 (0.0-0.1) K/uL Nucleated RBC % 0.0 /100WBC Nucleated RBCs # 0 K/uL Sodium 138 (136-145) mmol/L Potassium 3.4 L (3.5-5.1) mmol/L Chloride 100 (98-107) mmol/L Carbon Dioxide 19.1 L (21.0-32.0) mmol/L BUN 7 (7.0-18.0) mg/dL Creatinine 1.1 H (0.6-1.0) mg/dL Est Cr Clr Drug Dosing 65.11 mL/min Estimated GFR (MDRD) 57.2 ml/min Glucose 110 H (74-106) mg/dL Calcium 9.5 (8.5-10.1) mg/dL Magnesium 1.7 L (1.8-2.4) mg/dL Total Bilirubin 0.7 (0.2-1.0) mg/dL AST 24 (15-37) IU/L ALT 30 (14-63) IU/L Alkaline Phosphatase 63 (46-116) U/L Total Protein 7.9 (6.4-8.2) g/dL Albumin 5.0 (3.4-5.0) g/dL Globulin 2.9 (2.6-4.0) g/dL Albumin/Globulin Ratio 1.7 H (0.9-1.6) Lipase 488 H (73-393) U/L HCG, Qual (NEG) Ethyl Alcohol 152 mg/dL 10/21/19 Range/Units 15:15 WBC (4.0-11.0) K/uL RBC (4.30-5.90) M/uL Hgb (12.0-16.0) g/dL Hct (36.0-46.0) % MCV (80.0-98.0) fL MCH (27.0-32.0) pg MCHC (31.0-37.0) g/dL RDW Std Deviation (28.0-62.0) fl RDW Coeff of Tonya (11.0-15.0) % Plt Count (150-400) K/uL MPV (7.40-12.00) fL Neut % (Auto) (48.0-80.0) % Lymph % (Auto) (16.0-40.0) % [place] % (Auto) (0.0-15.0) % Eos % (Auto) (0.0-7.0) % Baso % (Auto) (0.0-1.5) % Neut # (Auto) (1.4-5.7) K/uL Lymph # (Auto) (0.6-2.4) K/uL [place] # (Auto) (0.0-0.8) K/uL Eos # (Auto) (0.0-0.7) K/uL Baso # (Auto) (0.0-0.1) K/uL Nucleated RBC % /100WBC Nucleated RBCs # K/uL Sodium (136-145) mmol/L Potassium (3.5-5.1) mmol/L Chloride (98-107) mmol/L Carbon Dioxide (21.0-32.0) mmol/L BUN (7.0-18.0) mg/dL Creatinine (0.6-1.0) mg/dL Est Cr Clr Drug Dosing mL/min Estimated GFR (MDRD) ml/min Glucose (74-106) mg/dL Calcium (8.5-10.1) mg/dL Magnesium (1.8-2.4) mg/dL Total Bilirubin (0.2-1.0) mg/dL AST (15-37) IU/L ALT (14-63) IU/L Alkaline Phosphatase (46-116) U/L Total Protein (6.4-8.2) g/dL Albumin (3.4-5.0) g/dL Globulin (2.6-4.0) g/dL Albumin/Globulin Ratio (0.9-1.6) Lipase (73-393) U/L HCG, Qual NEGATIVE (NEG) Ethyl Alcohol mg/dL Meds: Medications Discontinued Medications Generic Name Dose Route Start Last Admin Trade Name Freq PRN Reason Stop Dose Admin Famotidine 20 mg 10/21/19 15:46 10/21/19 15:57 Pepcid IVPUSH 10/21/19 15:47 20 mg ONETIME ONE Administration Haloperidol Lactate 5 mg 10/21/19 15:22 10/21/19 15:30 Haldol IM 10/21/19 15:23 5 mg ONETIME ONE Administration Sodium Chloride 1,000 mls @ 999 mls/hr 10/21/19 15:21 10/21/19 15:28 Normal Saline IV 10/21/19 16:21 999 mls/hr BOLUS ONE Administration Lactated Ringer's 1,000 mls @ 1,000 mls/hr 10/21/19 15:44 10/21/19 17:15 Ringers, Lactated IV 10/21/19 16:43 1,000 mls/hr .BOLUS ONE Administration Magnesium Oxide 800 mg 10/21/19 17:30 10/21/19 17:59 Magnesium Oxide PO 10/21/19 17:31 800 mg ONETIME ONE Administration Morphine Sulfate 4 mg 10/21/19 15:22 10/21/19 15:30 Morphine IVPUSH 10/21/19 15:23 4 mg ONETIME ONE Administration Ondansetron HCl 4 mg 10/21/19 15:21 10/21/19 15:30 Zofran IVPUSH 10/21/19 15:22 4 mg ONETIME ONE Administration Departure - Departure Time of Disposition: 18:15 Disposition: Home, Self-Care 01 Condition: Good Clinical Impression: Pancreatitis - Discharge Information Instructions: Acute Pancreatitis, [id number] Referrals: [facility] [Outside] Forms: ED Department Discharge Additional Instructions: Your symptoms today are due to acute pancreatitis which was caused by your alcohol drinking. I encourage you to try and cut down on your alcohol usage. Encouraged her to try and drink plenty of fluids over the next few days. If your pain worsens or you are unable to keep fluids down I encourage you to return to the emergency department. The following information is given to patients seen in the emergency department who are being discharged to home. This information is to outline your options for follow-up care. We provide all patients seen in our emergency department with a follow-up referral. The need for follow-up, as well as the timing and circumstances, are variable depending upon the specifics of your emergency department visit. If you don't have a primary care physician on staff, we will provide you with a referral. We always advise you to contact your personal physician following an emergency department visit to inform them of the circumstance of the visit and for follow-up with them and/or the need for any referrals to a consulting specialist. The emergency department will also refer you to a specialist when appropriate. This referral assures that you have the opportunity for follow-up care with a specialist. All of these measure are taken in an effort to provide you with optimal care, which includes your follow-up. Under all circumstances we always encourage you to contact your private physician who remains a resource for coordinating your care. When calling for follow-up care, please make the office aware that this follow-up is from your recent emergency room visit. If for any reason you are refused follow-up, please contact the [facility] Emergency Department at and asked to speak to the emergency department charge nurse. Sepsis Event Note - Evaluation Sepsis Screening Result: No Definite Risk - Focused Exam Vital Signs: Vital Signs Temp Pulse Resp BP Pulse Ox 10/21/19 17:17 70 16 102/54 L 94 L 10/21/19 15:13 97.1 F 68 19 119/63 100 Date Exam was Performed: 10/21/19 Time Exam was Performed: 18:06 - My Orders Last 24 Hours: My Active Orders 10/21/19 15:45 Abdomen Pelvis w Cont [CT] Stat 10/21/19 16:00 Chest 1V Frontal [CR] Stat - Assessment/Plan Last 24 Hours: My Active Orders 10/21/19 15:45 Abdomen Pelvis w Cont [CT] Stat 10/21/19 16:00 Chest 1V Frontal [CR] Stat Assessment:: 33-year-old female presenting with severe abdominal pain nausea and vomiting writhing around in bed difficult to get clear history from. Review of the chart indicates multiple prior presentations for similar symptoms she has been CTs in the past. Given the severity of her pain morphine, Zofran, Haldol ordered for symptom control IV fluids as well. Appendicitis considered diverticulitis considered but symptoms are clearly epigastric. Ovarian torsion considered as well but felt unlikely for the same reason. Renal colic considered as well. However, patient has been imaged for similar symptoms in the past and the studies have been unremarkable. CBC, CMP, lipase, alcohol level, urinalysis, urine hCG are all pending. Any imaging to be guided by response to therapy and these results. Labs are notable for mild pancreatitis she does have a mild leukocytosis. I initially ordered CT scan but patient is now awake and alert she is feeling somewhat better after the medication and she is refusing CT. She has had a number of CT scans before. I think the leukocytosis is likely reactive and so is not unreasonable. Her magnesium is low and this will be repleted. Patient encouraged to drink plenty fluids she given 2 L of fluids we discussed her pancreatitis. Patient discharged with follow-up. She is tolerating liquids and she declines admission and says she just wants to go home. Patient ambulates with a steady gait.
[2019-10-21 15:41] LABS: CARBON DIOXIDE,CO2 19.1 mmol/L (21.0-32.0); POTASSIUM,K 3.4 mmol/L (3.5-5.1)
[2019-10-21] MEDS ORDERED: Lactated Ringers 1,000 ML IV ONE (15:44)
[2019-10-21] MEDS ORDERED: Famotidine 20 MG/2 ML SDV IVPUSH ONE (15:46)
[2019-10-21] MEDS ORDERED: Magnesium Oxide 400 MG Tab PO ONE (17:30)
[2019-10-21 18:21] VITALS: BP 109/61; PULSE 53
== END 2019-10-21 18:18 | disposition home or self-care (01) ==
LOC: MW.ED 15:06
DX: K85.90 Acute pancreatitis without necrosis or infection, unspecified (principal); F17.210 Nicotine dependence, cigarettes, uncomplicated
CPT/HCPCS: 80053; 80307; 83690; 83735; 84703; 85025; 96361; 96372; 96374; 96375; 99284; A9270; J1630; J2270; J2405; J7030; J7120; S0028; J3490

== ENCOUNTER 2019-11-06 10:40 | Inpatient (IN) | payer MEDICAID, OTHER ==
[2019-11-06] MEDS ORDERED: LORazepam 2 MG/ML SDV IVPUSH ONE ×3 (10:58→12:49)
[2019-11-06] MEDS ORDERED: Ondansetron 4 MG/2 ML SDV IVPUSH ONE ×3 (10:58→12:12)
[2019-11-06] MEDS ORDERED: Sodium Chloride 0.9% 1,000 ML IV ONE ×2 (10:58→12:09)
--- NOTE | 2019-11-06 11:10 | EDM.PDOCBH ---
<Lashanda Ordoñez R - Last Filed: 11/06/19 12:13> ED HPI GENERAL MEDICAL PROBLEM - General Chief Complaint: Abdominal Pain Stated Complaint: ABDOMINAL PAIN Time Seen by Provider: 11/06/19 10:42 Source of Information: Reports: Patient History Limitations: Reports: Other (Hyperventilation, restlessness) - History of Present Illness INITIAL COMMENTS - FREE TEXT/NARRATIVE: Patient presents reporting alcohol detox. Although she initially stated to the nursing staff that she came in for abdominal pain when I queried her she denied abdominal pain or tenderness. 18 the year history of alcohol abuse currently drinking about 1/5 a day of hard liquor. Her friend who brought her today states she did so because she is getting alcohol treatment lined up for her and the patient needs a history and physical and lab work. The patient states she last drank alcohol yesterday, once stating that she "close the bar down last night" and then stated she could not remember. Review of the records indicates she has been worked up here and in [place] extensively for abdominal pain. CT scans were negative. Recommended HIDA scan was lost to follow-up. She did present once with acute pancreatitis. abdominal pain Pain Score (Numeric/FACES): 10 - Related Data Allergies Allergy/AdvReac Type Severity Reaction Status Date / Time No Known Allergies Allergy Verified 11/06/19 10:54 Home Meds: Home Meds . 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 Endocrine/Metabolic History: Reports: None Insulin Pump Model and Senior Label Specialist: None Hematologic History: Reports: None Immunologic History: Reports: None Oncologic (Cancer) History: Reports: None Dermatologic History: Reports: None - Infectious Disease History Infectious Disease History: Reports: Chicken Pox - Past Surgical History Head Surgeries/Procedures: Reports: None HEENT Surgical History: Reports: None Cardiovascular Surgical History: Reports: None Social & Family History - Family History Family Medical History: Noncontributory - Tobacco Use Smoking Status *Q: Current Every Day Smoker Years of Tobacco use: 19 Packs/Tins Daily: 1 - Caffeine Use Caffeine Use: Reports: Tea Other Caffeine Use: Headache medicine - Alcohol Use Days Per Week of Alcohol Use: 1 Number of Drinks Per Day: 10 Total Drinks Per Week: 10 - Recreational Drug Use Recreational Drug Use: No ED ROS GENERAL - Review of Systems Review Of Systems: See Below Constitutional: Denies: Fever HEENT: Reports: No Symptoms Respiratory: Reports: No Symptoms Cardiovascular: Reports: No Symptoms. Denies: Chest Pain Endocrine: Reports: No Symptoms GI/Abdominal: Reports: Diarrhea (this am, no blood), Nausea, Vomiting (this am, no blood in vomitus) : Reports: Other (dark urine, infrequent urination) Musculoskeletal: Reports: No Symptoms Skin: Reports: No Symptoms Neurological: Reports: No Symptoms Psychiatric: Reports: Cravings Hematologic/Lymphatic: Reports: No Symptoms ED EXAM, BEHAVIORAL HEALTH - Physical Exam Exam: See Below General Appearance: Alert, Moderate Distress (restless, hyperventilation, cant sit still) Ears: Normal External Exam Nose: Normal Inspection Throat/Mouth: Normal Inspection Head: Atraumatic, Normocephalic Neck: Normal Inspection Respiratory/Chest: No Respiratory Distress, Other (hyperventilation) Cardiovascular: Normal Peripheral Pulses, Regular Rate, Rhythm GI/Abdominal: Normal Bowel Sounds, Soft, Non-Tender, No Distention Back Exam: Normal Inspection Extremities: Normal Inspection Neurological: Alert Psychiatric: Alert, Restless Skin Exam: Warm, Dry, Intact, Normal color, No rash Comments: CIWA score 15 COURSE, BEHAVIORAL HEALTH COMP - Course Vital Signs: Last Vital Signs Temp 36.2 C 11/06/19 10:50 Pulse 76 11/06/19 13:30 Resp 18 11/06/19 13:30 BP 114/82 11/06/19 13:30 Pulse Ox 98 11/06/19 13:30 Orders, Labs, Meds: Active Orders 24 hr Category Date Time Status Chest 2V [CR] Stat Exams 11/06/19 11:29 Ordered DRUG SCREEN, URINE [URCHEM] Stat Lab 11/06/19 13:15 Ordered URINALYSIS W/MICROSCOPIC [UA W/MICROSCOPIC] [URIN] Stat Lab 11/06/19 11:00 Ordered Medication Orders Sodium Chloride (Normal Saline) 1,000 mls @ 200 mls/hr IV NOW STA Stop: 11/06/19 18:49 Last Admin: 11/06/19 14:06 Dose: 200 mls/hr Laboratory Tests 11/06/19 11/06/19 11/06/19 Range/Units 10:50 10:50 11:28 WBC 19.09 H (4.0-11.0) K/uL RBC 4.38 (4.30-5.90) M/uL Hgb 15.0 (12.0-16.0) g/dL Hct 44.1 (36.0-46.0) % MCV 100.7 H (80.0-98.0) fL MCH 34.2 H (27.0-32.0) pg MCHC 34.0 (31.0-37.0) g/dL RDW Std Deviation 49.3 (28.0-62.0) fl RDW Coeff of Tonya 13 (11.0-15.0) % Plt Count 285 (150-400) K/uL MPV 10.60 (7.40-12.00) fL Neut % (Auto) 85.4 H (48.0-80.0) % Lymph % (Auto) 8.4 L (16.0-40.0) % [place] % (Auto) 5.8 (0.0-15.0) % Eos % (Auto) 0.2 (0.0-7.0) % Baso % (Auto) 0.2 (0.0-1.5) % Neut # (Auto) 16.3 H (1.4-5.7) K/uL Lymph # (Auto) 1.6 (0.6-2.4) K/uL [place] # (Auto) 1.1 H (0.0-0.8) K/uL Eos # (Auto) 0.0 (0.0-0.7) K/uL Baso # (Auto) 0.0 (0.0-0.1) K/uL Nucleated RBC % 0.0 /100WBC Nucleated RBCs # 0 K/uL Sodium 138 (136-145) mmol/L Potassium 3.5 (3.5-5.1) mmol/L Chloride 99 (98-107) mmol/L Carbon Dioxide 15.7 L (21.0-32.0) mmol/L BUN 11 (7.0-18.0) mg/dL Creatinine 1.1 H (0.6-1.0) mg/dL Est Cr Clr Drug Dosing 61.92 mL/min Estimated GFR (MDRD) 56.9 ml/min Glucose 109 H (74-106) mg/dL Calcium 9.2 (8.5-10.1) mg/dL Total Bilirubin 0.5 (0.2-1.0) mg/dL AST 30 (15-37) IU/L ALT 40 (14-63) IU/L Alkaline Phosphatase 59 (46-116) U/L Ammonia <17 L (19-54) ug/dL Total Protein 7.6 (6.4-8.2) g/dL Albumin 4.7 (3.4-5.0) g/dL Globulin 2.9 (2.6-4.0) g/dL Albumin/Globulin Ratio 1.6 (0.9-1.6) Amylase 86 (25-115) U/L Lipase 123 (73-393) U/L Ethyl Alcohol mg/dL 11/06/19 Range/Units 11:28 WBC (4.0-11.0) K/uL RBC (4.30-5.90) M/uL Hgb (12.0-16.0) g/dL Hct (36.0-46.0) % MCV (80.0-98.0) fL MCH (27.0-32.0) pg MCHC (31.0-37.0) g/dL RDW Std Deviation (28.0-62.0) fl RDW Coeff of Tonya (11.0-15.0) % Plt Count (150-400) K/uL MPV (7.40-12.00) fL Neut % (Auto) (48.0-80.0) % Lymph % (Auto) (16.0-40.0) % [place] % (Auto) (0.0-15.0) % Eos % (Auto) (0.0-7.0) % Baso % (Auto) (0.0-1.5) % Neut # (Auto) (1.4-5.7) K/uL Lymph # (Auto) (0.6-2.4) K/uL [place] # (Auto) (0.0-0.8) K/uL Eos # (Auto) (0.0-0.7) K/uL Baso # (Auto) (0.0-0.1) K/uL Nucleated RBC % /100WBC Nucleated RBCs # K/uL Sodium (136-145) mmol/L Potassium (3.5-5.1) mmol/L Chloride (98-107) mmol/L Carbon Dioxide (21.0-32.0) mmol/L BUN (7.0-18.0) mg/dL Creatinine (0.6-1.0) mg/dL Est Cr Clr Drug Dosing mL/min Estimated GFR (MDRD) ml/min Glucose (74-106) mg/dL Calcium (8.5-10.1) mg/dL Total Bilirubin (0.2-1.0) mg/dL AST (15-37) IU/L ALT (14-63) IU/L Alkaline Phosphatase (46-116) U/L Ammonia (19-54) ug/dL Total Protein (6.4-8.2) g/dL Albumin (3.4-5.0) g/dL Globulin (2.6-4.0) g/dL Albumin/Globulin Ratio (0.9-1.6) Amylase (25-115) U/L Lipase (73-393) U/L Ethyl Alcohol 72 mg/dL Medications Generic Name Dose Route Start Last Admin Trade Name Ahsan PRN Reason Stop Dose Admin Sodium Chloride 1,000 mls @ 200 mls/hr 11/06/19 13:50 11/06/19 14:06 Normal Saline IV 11/06/19 18:49 200 mls/hr NOW STA Administration Discontinued Medications Generic Name Dose Route Start Last Admin Trade Name Ahsan PRN Reason Stop Dose Admin Sodium Chloride 1,000 mls @ 999 mls/hr 11/06/19 10:58 11/06/19 11:02 Normal Saline IV 11/06/19 11:58 999 mls/hr STAT ONE Administration Sodium Chloride 1,000 mls @ 999 mls/hr 11/06/19 12:09 11/06/19 12:15 Normal Saline IV 11/06/19 13:09 999 mls/hr STAT ONE Administration Lorazepam 0.5 mg 11/06/19 10:58 11/06/19 11:03 Ativan IVPUSH 11/06/19 10:59 0.5 mg ONETIME ONE Administration Lorazepam 0.5 mg 11/06/19 11:57 11/06/19 12:05 Ativan IVPUSH 11/06/19 11:58 0.5 mg ONETIME ONE Administration Lorazepam 1 mg 11/06/19 12:49 11/06/19 12:58 Ativan IVPUSH 11/06/19 12:50 1 mg ONETIME ONE Administration Nicotine 21 mg 11/06/19 13:57 11/06/19 14:06 Habitrol TRDERM 11/06/19 13:58 21 mg ONETIME ONE Administration Ondansetron HCl 4 mg 11/06/19 10:58 11/06/19 11:03 Zofran IVPUSH 11/06/19 10:59 4 mg ONETIME ONE Administration Ondansetron HCl 4 mg 11/06/19 12:11 11/06/19 12:15 Zofran IVPUSH 11/06/19 12:12 4 mg ONETIME ONE Administration Ondansetron HCl 4 mg 11/06/19 12:12 11/06/19 12:27 Zofran IVPUSH 11/06/19 12:13 Not Given ONETIME ONE Re-Assessment/Re-Exam: Dr. Lucas discussed case with Dr. Wilson and will refer to observation status Medical Clearance: Dr. Lucas visited with patient. 11/06/19 12:13 Departure - Departure Time of Disposition: 13:22 Disposition: Refer to Observation Condition: Fair Clinical Impression: Alcohol withdrawal syndrome Qualifiers: Complication of substance-induced condition: uncomplicated Qualified Code(s): F10.230 - Alcohol dependence with withdrawal, uncomplicated - Discharge Information Sepsis Event Note - Evaluation Sepsis Screening Result: No Definite Risk - Focused Exam Vital Signs: Vital Signs Temp Pulse Resp BP Pulse Ox 11/06/19 13:12 72 20 112/86 98 11/06/19 12:16 86 18 129/68 98 11/06/19 11:30 72 20 99 11/06/19 10:50 36.2 C 96 24 H 116/86 100 Date Exam was Performed: 11/06/19 Time Exam was Performed: 12:13 <Jean Paul Lucas - Last Filed: 11/06/19 14:12> ED HPI GENERAL MEDICAL PROBLEM - History of Present Illness INITIAL COMMENTS - FREE TEXT/NARRATIVE: I personally saw and evaluated the patient. Patient demonstrating signs of moderate alcohol withdrawal with CIWA score of approximately 15. Patient has no alteration of her mental status. Elevated white blood cell count is noted. Patient is pending a urinalysis. Pancreatitis was considered but patient had normal lipase therefore much less likely. Patient did refuse a chest x-ray. Leukocytosis may be reactive from the vomiting and alcohol withdrawal. Patient will require admission for monitoring and IV medications. Sepsis Event Note - Focused Exam Date Exam was Performed: 11/06/19 Time Exam was Performed: 14:11
[2019-11-06 11:24] LABS: CARBON DIOXIDE,CO2 15.7 mmol/L (21.0-32.0); POTASSIUM,K 3.5 mmol/L (3.5-5.1)
[2019-11-06] MEDS ORDERED: Sodium Chloride 0.9% 1,000 ML IV STA (13:50)
[2019-11-06] MEDS ORDERED: Nicotine 21 MG/24 Hr Patch TRDERM ONE (13:57)
[2019-11-06] MEDS ORDERED: Sodium Chloride 0.9% 1,000 ML IV SCH (14:15)
[2019-11-06] MEDS ORDERED: LORazepam 2 MG/ML SDV IV PRN (14:15)
[2019-11-06] MEDS: Pantoprazole 40 MG in Sodium Chloride 0.9% 10 ML IV SCH (14:43)
[2019-11-06] MEDS: Folic Acid 50 MG/10 ML MDV SUBCUT SCH (14:43)
[2019-11-06] MEDS: Thiamine 200 MG/2 ML MDV IVPUSH SCH (14:47)
[2019-11-06] MEDS ORDERED: Promethazine 25 MG/ML SDV IM PRN (14:52)
--- NOTE | 2019-11-06 14:56 | PCM.HP.2 ---
H&P History of Present Illness - General Date of Service: 11/06/19 Admit Problem/Dx: Admission Diagnosis/Problem Admission Diagnosis/Problem Alcohol withdrawal syndrome Source of Information: Patient History Limitations: Reports: No Limitations - History of Present Illness Initial Comments - Free Text/Narative: This 34 year old female with pmh of alcohol abuse and chronic abdominal pain presented to the ED with complaints of nausea, vomiting and abdominal pain that started this morning around 0600. She reports she drank heavily last night and then felt this way this morning. She has been worked up extensively for abdominal pain, with no real answers as to what it is caused from. She denies fevers or chills. No chest pain or SOB. reports the abdominal pain is epigastric and radiates straight through to her back. The nausea and vomiting come and go. She reports some diarrhea this morning, not black or bloody in color. She denies urinary concerns. She reports she smokes 1 ppd, drinks alcohol a few times a week, binges more that daily use. No recreational drug use. In the ED leukocytosis noted at 19,090. Bi carb low at 15.7, Bun 11, Cr 1.1 Glucose 109, LFTs WNL. Lipase 123 ETOH 72. She was treated with Ativan, CIWAA scores 15-19 in ED. She was also given 3 L NS in ED. She will be admitted for acute pancreatitis with a chronic component likely as well as alcohol withdrawal. abdominal pain Pain Score (Numeric/FACES): 10 - Related Data Allergies/Adverse Reactions: Allergies Allergy/AdvReac Type Severity Reaction Status Date / Time No Known Allergies Allergy Verified 11/06/19 14:29 Home Medications: Home Meds Prenat 115/Iron Fum/Folic/Dss [ 19 Tablet] 1 each PO DAILY 11/06/19 [ History] Past Medical History - Past Health History Medical/Surgical History: Denies Medical/Surgical History HEENT History: Reports: None Cardiovascular History: Reports: None. Denies: Afib, Blood Clots/VTE/DVT, CAD Respiratory History: Reports: None. Denies: Asthma, COPD Gastrointestinal History: Reports: Pancreatitis, Other (See Below) (chronic abdominal pain) Genitourinary History: Reports: None. Denies: Chronic Renal Insuffiency BUSINESS REPORTER History: Reports: Musculoskeletal History: Reports: None Neurological History: Reports: None Psychiatric History: Reports: Anxiety, Depression Other Psychiatric History: patient states in the past. Endocrine/Metabolic History: Reports: None Insulin Pump Model and Quality Control: None Hematologic History: Reports: None Immunologic History: Reports: None Oncologic (Cancer) History: Reports: None Dermatologic History: Reports: None - Infectious Disease History Infectious Disease History: Reports: Chicken Pox - Past Surgical History Head Surgeries/Procedures: Reports: None HEENT Surgical History: Reports: None Cardiovascular Surgical History: Reports: None GI Surgical History: Reports: None Social & Family History - Family History Family Medical History: Noncontributory - Tobacco Use Smoking Status *Q: Current Every Day Smoker Years of Tobacco use: 15 Packs/Tins Daily: 1 Second Hand Smoke Exposure: No - Caffeine Use Caffeine Use: Reports: Tea Other Caffeine Use: Headache medicine - Alcohol Use Days Per Week of Alcohol Use: 5 Number of Drinks Per Day: 2 Total Drinks Per Week: 10 Alcohol Use Frequency: Binges - Recreational Drug Use Recreational Drug Use: No - Living Situation & Occupation Occupation: Employed H&P Review of Systems - Review of Systems: Review Of Systems: See Below General: Reports: Malaise. Denies: Fever, Chills HEENT: Reports: No Symptoms. Denies: Headaches, Sinus Congestion, Sore Throat Pulmonary: Reports: No Symptoms. Denies: Shortness of Breath Cardiovascular: Reports: No Symptoms. Denies: Chest Pain Gastrointestinal: Reports: Abdominal Pain (epigastric, sharp shooting radiates to back), Diarrhea, Nausea, Vomiting. Denies: Black Stool, Bloody Stool Genitourinary: Reports: No Symptoms. Denies: Dysuria, Frequency, Burning Musculoskeletal: Reports: No Symptoms Skin: Reports: No Symptoms Psychiatric: Reports: No Symptoms Neurological: Reports: No Symptoms Hematologic/Lymphatic: Reports: No Symptoms Immunologic: Reports: No Symptoms Exam - Exam Exam: See Below - Vital Signs Vital Signs: Last Vital Signs Temp 97.7 F 11/06/19 14:39 Pulse 60 11/06/19 14:39 Resp 18 11/06/19 14:39 BP 138/56 L 11/06/19 14:39 Pulse Ox 99 11/06/19 14:39 Weight: 54.4 kg - Exam General: Alert, Oriented, Mild Distress (curled up in bed due to abdominal pain , no overt withdrawal symptoms noted. fidgety due to pain) HEENT: Conjunctiva Clear, Mucosa Moist & [place], Posterior Pharynx Clear Neck: Supple Lungs: Clear to Auscultation, Normal Respiratory Effort Cardiovascular: Regular Rate, Regular Rhythm GI/Abdominal Exam: Normal Bowel Sounds, Soft, Tender (epigastric) Back Exam: Normal Inspection, Full Range of Motion Extremities: Normal Inspection, Normal Range of Motion, Non-Tender, No Pedal Edema Neuro Extensive - Mental Status: Alert, Oriented x3 Psychiatric: Alert, Normal Affect, Normal Mood. No: Withdrawal Symptoms - Patient Data Lab Results Last 24 hrs: Laboratory Results - last 24 hr 11/06/19 11/06/19 11/06/19 Range/Units 10:50 10:50 11:28 WBC 19.09 H (4.0-11.0) K/uL RBC 4.38 (4.30-5.90) M/uL Hgb 15.0 (12.0-16.0) g/dL Hct 44.1 (36.0-46.0) % MCV 100.7 H (80.0-98.0) fL MCH 34.2 H (27.0-32.0) pg MCHC 34.0 (31.0-37.0) g/dL RDW Std Deviation 49.3 (28.0-62.0) fl RDW Coeff of Tonya 13 (11.0-15.0) % Plt Count 285 (150-400) K/uL MPV 10.60 (7.40-12.00) fL Neut % (Auto) 85.4 H (48.0-80.0) % Lymph % (Auto) 8.4 L (16.0-40.0) % [place] % (Auto) 5.8 (0.0-15.0) % Eos % (Auto) 0.2 (0.0-7.0) % Baso % (Auto) 0.2 (0.0-1.5) % Neut # (Auto) 16.3 H (1.4-5.7) K/uL Lymph # (Auto) 1.6 (0.6-2.4) K/uL [place] # (Auto) 1.1 H (0.0-0.8) K/uL Eos # (Auto) 0.0 (0.0-0.7) K/uL Baso # (Auto) 0.0 (0.0-0.1) K/uL Nucleated RBC % 0.0 /100WBC Nucleated RBCs # 0 K/uL Sodium 138 (136-145) mmol/L Potassium 3.5 (3.5-5.1) mmol/L Chloride 99 (98-107) mmol/L Carbon Dioxide 15.7 L (21.0-32.0) mmol/L BUN 11 (7.0-18.0) mg/dL Creatinine 1.1 H (0.6-1.0) mg/dL Est Cr Clr Drug Dosing 61.92 mL/min Estimated GFR (MDRD) 56.9 ml/min Glucose 109 H (74-106) mg/dL Calcium 9.2 (8.5-10.1) mg/dL Total Bilirubin 0.5 (0.2-1.0) mg/dL AST 30 (15-37) IU/L ALT 40 (14-63) IU/L Alkaline Phosphatase 59 (46-116) U/L Ammonia <17 L (19-54) ug/dL Total Protein 7.6 (6.4-8.2) g/dL Albumin 4.7 (3.4-5.0) g/dL Globulin 2.9 (2.6-4.0) g/dL Albumin/Globulin Ratio 1.6 (0.9-1.6) Amylase 86 (25-115) U/L Lipase 123 (73-393) U/L Ethyl Alcohol mg/dL / Range/Units 11:28 WBC (4.0-11.0) K/uL RBC (4.30-5.90) M/uL Hgb (12.0-16.0) g/dL Hct (36.0-46.0) % MCV (80.0-98.0) fL MCH (27.0-32.0) pg MCHC (31.0-37.0) g/dL RDW Std Deviation (28.0-62.0) fl RDW Coeff of Tonya (11.0-15.0) % Plt Count (150-400) K/uL MPV (7.40-12.00) fL Neut % (Auto) (48.0-80.0) % Lymph % (Auto) (16.0-40.0) % [place] % (Auto) (0.0-15.0) % Eos % (Auto) (0.0-7.0) % Baso % (Auto) (0.0-1.5) % Neut # (Auto) (1.4-5.7) K/uL Lymph # (Auto) (0.6-2.4) K/uL [place] # (Auto) (0.0-0.8) K/uL Eos # (Auto) (0.0-0.7) K/uL Baso # (Auto) (0.0-0.1) K/uL Nucleated RBC % /100WBC Nucleated RBCs # K/uL Sodium (136-145) mmol/L Potassium (3.5-5.1) mmol/L Chloride (98-107) mmol/L Carbon Dioxide (21.0-32.0) mmol/L BUN (7.0-18.0) mg/dL Creatinine (0.6-1.0) mg/dL Est Cr Clr Drug Dosing mL/min Estimated GFR (MDRD) ml/min Glucose (74-106) mg/dL Calcium (8.5-10.1) mg/dL Total Bilirubin (0.2-1.0) mg/dL AST (15-37) IU/L ALT (14-63) IU/L Alkaline Phosphatase (46-116) U/L Ammonia (19-54) ug/dL Total Protein (6.4-8.2) g/dL Albumin (3.4-5.0) g/dL Globulin (2.6-4.0) g/dL Albumin/Globulin Ratio (0.9-1.6) Amylase (25-115) U/L Lipase (73-393) U/L Ethyl Alcohol 72 mg/dL Result Diagrams: 11/06/19 10:50 11/06/19 10:50 Sepsis Event Note - Evaluation Sepsis Screening Result: No Definite Risk - Focused Exam Vital Signs: Vital Signs Temp Pulse Resp BP Pulse Ox 11/06/19 14:39 97.7 F 60 18 138/56 L 99 11/06/19 13:30 76 18 114/82 98 11/06/19 13:12 72 20 112/86 98 11/06/19 12:16 86 18 129/68 98 11/06/19 11:30 72 20 99 11/06/19 10:50 97.2 F 96 24 H 116/86 100 Date Exam was Performed: 11/06/19 Time Exam was Performed: 15:35 - Problem List (1) Acute on chronic pancreatitis SNOMED Code(s): 904984299 ICD Code: K85.90 - ACUTE PANCREATITIS WITHOUT NECROSIS OR INFECTION, UNSP; K86.1 - OTHER CHRONIC PANCREATITIS Status: Acute Current Visit: Yes (2) Alcohol withdrawal syndrome SNOMED Code(s): 198699957 ICD Code: F10.239 - ALCOHOL DEPENDENCE WITH WITHDRAWAL, UNSPECIFIED Status : Acute Current Visit: Yes Qualifiers: Complication of substance-induced condition: uncomplicated Qualified Code(s ): F10.230 - Alcohol dependence with withdrawal, uncomplicated (3) Abdominal pain SNOMED Code(s): 58955234 ICD Code: R10.9 - UNSPECIFIED ABDOMINAL PAIN Status: Acute Current Visit : No (4) Leukocytosis, unspecified SNOMED Code(s): 821346140, 761003185 ICD Code: D72.829 - ELEVATED WHITE BLOOD CELL COUNT, UNSPECIFIED Status: Acute Current Visit: No Qualifiers: Leukocytosis type: unspecified Qualified Code(s): D72.829 - Elevated white blood cell count, unspecified Problem List Initiated/Reviewed/Updated: Yes Orders Last 24hrs: Active Orders 24 hr Category Date Time Status Patient Status [ADT] Stat ADT 11/06/19 13:17 Active Antiembolic Devices [RC] PER UNIT ROUTINE Care 11/06/19 14:16 Active Blood Glucose Check, Bedside [RC] Q6H Care 11/06/19 18:00 Ordered CIWAA Assessment [RC] Q4H Care 11/06/19 14:17 Active Intake and Output [RC] Q12H Care 11/06/19 14:15 Active Oxygen Therapy [RC] PRN Care 11/06/19 14:15 Active Up With Assistance [RC] ASDIRECTED Care 11/06/19 14:15 Active VTE/DVT Education [RC] PER UNIT ROUTINE Care 11/06/19 14:15 Active Vital Signs [RC] Q4H Care 11/06/19 14:15 Active NPO [Nothing Per Oral Diet] [DIET] Diet 11/06/19 Dinner Ordered Chest 2V [CR] Stat Exams 11/06/19 11:29 Ordered CBC WITH AUTO DIFF [HEME] AM Lab 11/07/19 05:11 Ordered CBC WITH AUTO DIFF [HEME] AM Lab 11/08/19 05:11 Ordered CBC WITH AUTO DIFF [HEME] AM Lab 11/09/19 05:11 Ordered COMPREHENSIVE METABOLIC PN,CMP [CHEM] AM Lab 11/07/19 05:11 Ordered COMPREHENSIVE METABOLIC PN,CMP [CHEM] AM Lab 11/08/19 05:11 Ordered COMPREHENSIVE METABOLIC PN,CMP [CHEM] AM Lab 11/09/19 05:11 Ordered DRUG SCREEN, URINE [URCHEM] Stat Lab 11/06/19 13:15 Ordered LIPASE [CHEM] AM Lab 11/07/19 05:11 Ordered MAGNESIUM [CHEM] AM Lab 11/07/19 05:11 Ordered MAGNESIUM [CHEM] AM Lab 11/08/19 05:11 Ordered MAGNESIUM [CHEM] AM Lab 11/09/19 05:11 Ordered MAGNESIUM [CHEM] Routine Lab 11/06/19 11:28 Received URINALYSIS W/MICROSCOPIC [UA W/MICROSCOPIC] [URIN] Stat Lab 11/06/19 11:00 Ordered Folic Acid Med 11/06/19 14:30 Active 1 mg SUBCUT DAILY HYDROmorphone [Dilaudid] Med 11/06/19 14:52 Ordered 1 mg IVPUSH Q3H PRN LORazepam [Ativan] Med 11/06/19 14:15 Active See Protocol IV Q4H PRN Ondansetron [Zofran] Med 11/06/19 14:17 Active 4 mg PO Q4H PRN Pantoprazole [ProTONIX IV] 40 mg Med 11/06/19 14:45 Active Sodium Chloride 0.9% [Normal Saline] 10 ml IV Q12H Promethazine [Phenergan] Med 11/06/19 14:52 Ordered 25 mg IM Q6H PRN Sodium Chloride 0.9% [Normal Saline] 1,000 ml Med 11/06/19 13:50 Active IV NOW Sodium Chloride 0.9% [Normal Saline] 1,000 ml Med 11/06/19 14:15 Active IV Q5H Thiamine [Vitamin B-1] Med 11/06/19 14:30 Active 100 mg IVPUSH DAILY Sequential Compression Device [OM.PC] Per Unit Routine Oth 11/06/19 14:15 Ordered Resuscitation Status Routine Resus Stat 11/06/19 14:15 Ordered Medication Orders Folic Acid (Folic Acid) 1 mg SUBCUT DAILY [facility] Last Admin: 11/06/19 14:43 Dose: 1 mg Hydromorphone HCl (Dilaudid) 1 mg IVPUSH Q3H PRN PRN Reason: Pain Sodium Chloride (Normal Saline) 1,000 mls @ 200 mls/hr IV NOW STA Stop: 11/06/19 18:49 Last Admin: 11/06/19 14:06 Dose: 200 mls/hr Sodium Chloride (Normal Saline) 1,000 mls @ 200 mls/hr IV Q5H [facility] Last Admin: 11/06/19 14:41 Dose: 200 mls/hr Pantoprazole Sodium 40 mg/ (Sodium Chloride) 10 mls @ 300 mls/hr IV Q12H [facility] Last Admin: 11/06/19 14:43 Dose: 300 mls/hr Lorazepam (Ativan) 0 mg IV Q4H PRN; Protocol PRN Reason: CIWAA Ondansetron HCl (Zofran) 4 mg PO Q4H PRN PRN Reason: Nausea/Vomiting Promethazine HCl (Phenergan) 25 mg IM Q6H PRN PRN Reason: Nausea Thiamine HCl (Vitamin B-1) 100 mg IVPUSH DAILY [facility] Last Admin: 11/06/19 14:47 Dose: 100 mg Assessment/Plan Comment:: THis 34 year old female admitted with suspected acute on chronic pancreatitis and alcohol withdrawal 1. Acute on chronic pancreatitis - Has chronic abdominal pain and is correlated with drinking, likely has component of chronic pancreatitis - Lipase not elevated, but pain and N/V give high suspicion of this - Repeat lipase in am - IVFs, NS 200 ml/hr - Dilaudid for pain - Zofran PRN nausea - NPO with ice chips for now - Leukocytosis likely reactive, no need for abx currently, recheck in am. - Diarrhea noted, will check Cdiff - Has refused imaging today, as she reports she has CTs all the time. If pain worsens tomorrow will consider re-imaging. Hx of abd US with no gall stones. No transaminitis noted 2. Alcohol withdrawal - CIWAAs stable, more fidgety from pain than alcohol withdrawal currently. Follows directions well, no diaphoresis, anxiety or hallucinations noted - CIWAA with Ativan Protocol PRN - Folic and Thiamine supplementation - Denies hx of seizures from alcohol withdrawal - reports friend is trying to get her into a treatment facility as outpatient VTE prophylaxis: SCDs and ambulation Dispo: 2-3 days pending improvement - Mortality Measure Prognosis:: Good
[2019-11-06] MEDS: HYDROmorphone 1 MG/ML Syringe IVPUSH PRN ×2 (14:58→23:00)
[2019-11-06] MEDS ORDERED: Magnesium Sulfate/Water 2 GM in Premix Bag 1 BAG IV ONE (15:20)
[2019-11-06] MEDS: Nicotine 14 MG/24 Hr Patch TRDERM SCH (16:28)
[2019-11-06] MEDS: Dextrose 5%-0.9% NaCl 1,000 ML IV SCH (18:14)
[2019-11-06] MEDS: Ondansetron 4 MG Tab PO PRN (23:21)
[2019-11-07] MEDS: Dextrose 5%-0.9% NaCl 1,000 ML IV SCH ×5 (00:51→22:29)
[2019-11-07] MEDS: Pantoprazole 40 MG in Sodium Chloride 0.9% 10 ML IV SCH ×2 (02:12→15:14)
[2019-11-07] MEDS: HYDROmorphone 1 MG/ML Syringe IVPUSH PRN ×3 (02:15→21:00)
[2019-11-07 06:08] LABS: BLOOD UREA NITROGEN,BUN 8 mg/dL (7.0-18.0); CARBON DIOXIDE,CO2 24.1 mmol/L (21.0-32.0); CHLORIDE,CL 107 mmol/L (98-107); GLUCOSE RANDOM 146 mg/dL (74-106); LIPASE 127 U/L (73-393); POTASSIUM,K 3.7 mmol/L (3.5-5.1); SODIUM,NA 138 mmol/L (136-145)
--- NOTE | 2019-11-07 08:59 | PCM.PN ---
- General Info Date of Service: 11/07/19 Admission Dx/Problem (Free Text): Admission Diagnosis/Problem Admission Diagnosis/Problem Alcohol withdrawal syndrome Subjective Update: Feeling a little better this morning. Has headache after pain medication given this morning. Continues to have epigastric abdominal pain which has improved slightly. Nausea continues intermittently. No chest pain Functional Status: Reports: Pain Controlled, Tolerating Diet - Review of Systems General: Reports: No Symptoms. Denies: Fatigue, Malaise, Chills HEENT: Reports: No Symptoms. Denies: Headaches, Sore Throat, Visual Changes Pulmonary: Reports: No Symptoms. Denies: Shortness of Breath, Cough, Sputum Cardiovascular: Reports: No Symptoms. Denies: Chest Pain Gastrointestinal: Reports: Abdominal Pain, Nausea. Denies: Diarrhea, Vomiting Genitourinary: Reports: No Symptoms. Denies: Dysuria, Frequency, Burning Musculoskeletal: Reports: No Symptoms Skin: Reports: No Symptoms Neurological: Reports: No Symptoms. Denies: Confusion Psychiatric: Reports: No Symptoms - Patient Data Vitals - Most Recent: Last Vital Signs Temp 96.8 F L 11/07/19 04:27 Pulse 65 11/07/19 04:27 Resp 18 11/07/19 04:27 BP 97/65 11/07/19 04:27 Pulse Ox 99 11/07/19 04:27 Weight - Most Recent: 54.4 kg I&O - Last 24 Hours: Intake & Output 11/06/19 11/07/19 11/07/19 22:59 06:59 14:59 Intake Total 10 2010 Output Total 0 1600 Balance 10 410 Lab Results Last 24 Hours: Laboratory Results - last 24 hr 11/06/19 11/06/19 11/06/19 Range/Units 10:50 10:50 10:50 WBC 19.09 H (4.0-11.0) K/uL RBC 4.38 (4.30-5.90) M/uL Hgb 15.0 (12.0-16.0) g/dL Hct 44.1 (36.0-46.0) % MCV 100.7 H (80.0-98.0) fL MCH 34.2 H (27.0-32.0) pg MCHC 34.0 (31.0-37.0) g/dL RDW Std Deviation 49.3 (28.0-62.0) fl RDW Coeff of Tonya 13 (11.0-15.0) % Plt Count 285 (150-400) K/uL MPV 10.60 (7.40-12.00) fL Neut % (Auto) 85.4 H (48.0-80.0) % Lymph % (Auto) 8.4 L (16.0-40.0) % [place] % (Auto) 5.8 (0.0-15.0) % Eos % (Auto) 0.2 (0.0-7.0) % Baso % (Auto) 0.2 (0.0-1.5) % Neut # (Auto) 16.3 H (1.4-5.7) K/uL Lymph # (Auto) 1.6 (0.6-2.4) K/uL [place] # (Auto) 1.1 H (0.0-0.8) K/uL Eos # (Auto) 0.0 (0.0-0.7) K/uL Baso # (Auto) 0.0 (0.0-0.1) K/uL Nucleated RBC % 0.0 /100WBC Nucleated RBCs # 0 K/uL Sodium 138 (136-145) mmol/L Potassium 3.5 (3.5-5.1) mmol/L Chloride 99 (98-107) mmol/L Carbon Dioxide 15.7 L (21.0-32.0) mmol/L BUN 11 (7.0-18.0) mg/dL Creatinine 1.1 H (0.6-1.0) mg/dL Est Cr Clr Drug Dosing 61.92 mL/min Estimated GFR (MDRD) 56.9 ml/min Glucose 109 H (74-106) mg/dL POC Glucose (60-110) mg/dL Calcium 9.2 (8.5-10.1) mg/dL Magnesium (1.8-2.4) mg/dL Total Bilirubin 0.5 (0.2-1.0) mg/dL AST 30 (15-37) IU/L ALT 40 (14-63) IU/L Alkaline Phosphatase 59 (46-116) U/L Ammonia (19-54) ug/dL Total Protein 7.6 (6.4-8.2) g/dL Albumin 4.7 (3.4-5.0) g/dL Globulin 2.9 (2.6-4.0) g/dL Albumin/Globulin Ratio 1.6 (0.9-1.6) Amylase 86 (25-115) U/L Lipase 123 (73-393) U/L HCG, Qual NEGATIVE (NEG) Urine Color Urine Appearance Urine pH (5.0-8.0) Ur Specific [place] (1.001-1.035) Urine Protein (NEGATIVE) mg/dL Urine Glucose (UA) (NEGATIVE) mg/dL Urine Ketones (NEGATIVE) mg/dL Urine Occult Blood (NEGATIVE) Urine Nitrite (NEGATIVE) Urine Bilirubin (NEGATIVE) Urine Urobilinogen (<2.0) EU/dL Ur Leukocyte Esterase (NEGATIVE) Urine RBC (0-2/HPF) Urine WBC (0-5/HPF) Ur Epithelial Cells (NONE-FEW) Urine Bacteria (NEGATIVE) Urine Mucus (NONE-MOD) Urine Opiates Screen (NEGATIVE) Ur Oxycodone Screen (NEGATIVE) Urine Methadone Screen (NEGATIVE) Ur Barbiturates Screen (NEGATIVE) Ur Phencyclidine Scrn (NEGATIVE) Ur Amphetamine Screen (NEGATIVE) U Methamphetamines Scrn (NEGATIVE) U Benzodiazepines Scrn (NEGATIVE) U Cocaine Metab Screen (NEGATIVE) U Marijuana (THC) Screen (NEGATIVE) Ethyl Alcohol mg/dL 11/06/19 11/06/19 11/06/19 Range/Units 11:28 11:28 11:28 WBC (4.0-11.0) K/uL RBC (4.30-5.90) M/uL Hgb (12.0-16.0) g/dL Hct (36.0-46.0) % MCV (80.0-98.0) fL MCH (27.0-32.0) pg MCHC (31.0-37.0) g/dL RDW Std Deviation (28.0-62.0) fl RDW Coeff of Tonya (11.0-15.0) % Plt Count (150-400) K/uL MPV (7.40-12.00) fL Neut % (Auto) (48.0-80.0) % Lymph % (Auto) (16.0-40.0) % [place] % (Auto) (0.0-15.0) % Eos % (Auto) (0.0-7.0) % Baso % (Auto) (0.0-1.5) % Neut # (Auto) (1.4-5.7) K/uL Lymph # (Auto) (0.6-2.4) K/uL [place] # (Auto) (0.0-0.8) K/uL Eos # (Auto) (0.0-0.7) K/uL Baso # (Auto) (0.0-0.1) K/uL Nucleated RBC % /100WBC Nucleated RBCs # K/uL Sodium (136-145) mmol/L Potassium (3.5-5.1) mmol/L Chloride (98-107) mmol/L Carbon Dioxide (21.0-32.0) mmol/L BUN (7.0-18.0) mg/dL Creatinine (0.6-1.0) mg/dL Est Cr Clr Drug Dosing mL/min Estimated GFR (MDRD) ml/min Glucose (74-106) mg/dL POC Glucose (60-110) mg/dL Calcium (8.5-10.1) mg/dL Magnesium 1.7 L (1.8-2.4) mg/dL Total Bilirubin (0.2-1.0) mg/dL AST (15-37) IU/L ALT (14-63) IU/L Alkaline Phosphatase (46-116) U/L Ammonia <17 L (19-54) ug/dL Total Protein (6.4-8.2) g/dL Albumin (3.4-5.0) g/dL Globulin (2.6-4.0) g/dL Albumin/Globulin Ratio (0.9-1.6) Amylase (25-115) U/L Lipase (73-393) U/L HCG, Qual (NEG) Urine Color Urine Appearance Urine pH (5.0-8.0) Ur Specific [place] (1.001-1.035) Urine Protein (NEGATIVE) mg/dL Urine Glucose (UA) (NEGATIVE) mg/dL Urine Ketones (NEGATIVE) mg/dL Urine Occult Blood (NEGATIVE) Urine Nitrite (NEGATIVE) Urine Bilirubin (NEGATIVE) Urine Urobilinogen (<2.0) EU/dL Ur Leukocyte Esterase (NEGATIVE) Urine RBC (0-2/HPF) Urine WBC (0-5/HPF) Ur Epithelial Cells (NONE-FEW) Urine Bacteria (NEGATIVE) Urine Mucus (NONE-MOD) Urine Opiates Screen (NEGATIVE) Ur Oxycodone Screen (NEGATIVE) Urine Methadone Screen (NEGATIVE) Ur Barbiturates Screen (NEGATIVE) Ur Phencyclidine Scrn (NEGATIVE) Ur Amphetamine Screen (NEGATIVE) U Methamphetamines Scrn (NEGATIVE) U Benzodiazepines Scrn (NEGATIVE) U Cocaine Metab Screen (NEGATIVE) U Marijuana (THC) Screen (NEGATIVE) Ethyl Alcohol 72 mg/dL 11/06/19 11/06/19 11/06/19 Range/Units 17:36 21:15 21:15 WBC (4.0-11.0) K/uL RBC (4.30-5.90) M/uL Hgb (12.0-16.0) g/dL Hct (36.0-46.0) % MCV (80.0-98.0) fL MCH (27.0-32.0) pg MCHC (31.0-37.0) g/dL RDW Std Deviation (28.0-62.0) fl RDW Coeff of Tonya (11.0-15.0) % Plt Count (150-400) K/uL MPV (7.40-12.00) fL Neut % (Auto) (48.0-80.0) % Lymph % (Auto) (16.0-40.0) % [place] % (Auto) (0.0-15.0) % Eos % (Auto) (0.0-7.0) % Baso % (Auto) (0.0-1.5) % Neut # (Auto) (1.4-5.7) K/uL Lymph # (Auto) (0.6-2.4) K/uL [place] # (Auto) (0.0-0.8) K/uL Eos # (Auto) (0.0-0.7) K/uL Baso # (Auto) (0.0-0.1) K/uL Nucleated RBC % /100WBC Nucleated RBCs # K/uL Sodium (136-145) mmol/L Potassium (3.5-5.1) mmol/L Chloride (98-107) mmol/L Carbon Dioxide (21.0-32.0) mmol/L BUN (7.0-18.0) mg/dL Creatinine (0.6-1.0) mg/dL Est Cr Clr Drug Dosing mL/min Estimated GFR (MDRD) ml/min Glucose (74-106) mg/dL POC Glucose 65 (60-110) mg/dL Calcium (8.5-10.1) mg/dL Magnesium (1.8-2.4) mg/dL Total Bilirubin (0.2-1.0) mg/dL AST (15-37) IU/L ALT (14-63) IU/L Alkaline Phosphatase (46-116) U/L Ammonia (19-54) ug/dL Total Protein (6.4-8.2) g/dL Albumin (3.4-5.0) g/dL Globulin (2.6-4.0) g/dL Albumin/Globulin Ratio (0.9-1.6) Amylase (25-115) U/L Lipase (73-393) U/L HCG, Qual (NEG) Urine Color YELLOW Urine Appearance CLEAR Urine pH 5.5 (5.0-8.0) Ur Specific [place] >= 1.030 (1.001-1.035) Urine Protein NEGATIVE (NEGATIVE) mg/dL Urine Glucose (UA) NEGATIVE (NEGATIVE) mg/dL Urine Ketones 15 H (NEGATIVE) mg/dL Urine Occult Blood MODERATE H (NEGATIVE) Urine Nitrite NEGATIVE (NEGATIVE) Urine Bilirubin NEGATIVE (NEGATIVE) Urine Urobilinogen 0.2 (<2.0) EU/dL Ur Leukocyte Esterase NEGATIVE (NEGATIVE) Urine RBC 0-3 (0-2/HPF) Urine WBC 0-3 (0-5/HPF) Ur Epithelial Cells RARE (NONE-FEW) Urine Bacteria FEW (NEGATIVE) Urine Mucus LIGHT (NONE-MOD) Urine Opiates Screen NEGATIVE (NEGATIVE) Ur Oxycodone Screen NEGATIVE (NEGATIVE) Urine Methadone Screen NEGATIVE (NEGATIVE) Ur Barbiturates Screen NEGATIVE (NEGATIVE) Ur Phencyclidine Scrn NEGATIVE (NEGATIVE) Ur Amphetamine Screen NEGATIVE (NEGATIVE) U Methamphetamines Scrn NEGATIVE (NEGATIVE) U Benzodiazepines Scrn NEGATIVE (NEGATIVE) U Cocaine Metab Screen NEGATIVE (NEGATIVE) U Marijuana (THC) Screen POSITIVE (NEGATIVE) Ethyl Alcohol mg/dL 11/07/19 11/07/19 11/07/19 Range/Units 01:26 05:02 05:02 WBC 6.93 (4.0-11.0) K/uL RBC 3.41 L (4.30-5.90) M/uL Hgb 11.5 L (12.0-16.0) g/dL Hct 34.8 L (36.0-46.0) % MCV 102.1 H (80.0-98.0) fL MCH 33.7 H (27.0-32.0) pg MCHC 33.0 (31.0-37.0) g/dL RDW Std Deviation 50.2 (28.0-62.0) fl RDW Coeff of Tonya 13 (11.0-15.0) % Plt Count 142 L (150-400) K/uL MPV 10.50 (7.40-12.00) fL Neut % (Auto) 57.0 (48.0-80.0) % Lymph % (Auto) 29.3 (16.0-40.0) % [place] % (Auto) 12.7 (0.0-15.0) % Eos % (Auto) 0.9 (0.0-7.0) % Baso % (Auto) 0.1 (0.0-1.5) % Neut # (Auto) 4.0 (1.4-5.7) K/uL Lymph # (Auto) 2.0 (0.6-2.4) K/uL [place] # (Auto) 0.9 H (0.0-0.8) K/uL Eos # (Auto) 0.1 (0.0-0.7) K/uL Baso # (Auto) 0.0 (0.0-0.1) K/uL Nucleated RBC % 0.0 /100WBC Nucleated RBCs # 0 K/uL Sodium 138 (136-145) mmol/L Potassium 3.7 (3.5-5.1) mmol/L Chloride 107 (98-107) mmol/L Carbon Dioxide 24.1 (21.0-32.0) mmol/L BUN 8 (7.0-18.0) mg/dL Creatinine 0.7 (0.6-1.0) mg/dL Est Cr Clr Drug Dosing 97.25 mL/min Estimated GFR (MDRD) > 60.0 ml/min Glucose 146 H (74-106) mg/dL POC Glucose 107 (60-110) mg/dL Calcium 7.9 L (8.5-10.1) mg/dL Magnesium 2.2 (1.8-2.4) mg/dL Total Bilirubin 0.6 (0.2-1.0) mg/dL AST 14 L (15-37) IU/L ALT 11 L (14-63) IU/L Alkaline Phosphatase 40 L (46-116) U/L Ammonia (19-54) ug/dL Total Protein 5.2 L (6.4-8.2) g/dL Albumin 3.0 L (3.4-5.0) g/dL Globulin 2.2 L (2.6-4.0) g/dL Albumin/Globulin Ratio 1.4 (0.9-1.6) Amylase (25-115) U/L Lipase 127 (73-393) U/L HCG, Qual (NEG) Urine Color Urine Appearance Urine pH (5.0-8.0) Ur Specific [place] (1.001-1.035) Urine Protein (NEGATIVE) mg/dL Urine Glucose (UA) (NEGATIVE) mg/dL Urine Ketones (NEGATIVE) mg/dL Urine Occult Blood (NEGATIVE) Urine Nitrite (NEGATIVE) Urine Bilirubin (NEGATIVE) Urine Urobilinogen (<2.0) EU/dL Ur Leukocyte Esterase (NEGATIVE) Urine RBC (0-2/HPF) Urine WBC (0-5/HPF) Ur Epithelial Cells (NONE-FEW) Urine Bacteria (NEGATIVE) Urine Mucus (NONE-MOD) Urine Opiates Screen (NEGATIVE) Ur Oxycodone Screen (NEGATIVE) Urine Methadone Screen (NEGATIVE) Ur Barbiturates Screen (NEGATIVE) Ur Phencyclidine Scrn (NEGATIVE) Ur Amphetamine Screen (NEGATIVE) U Methamphetamines Scrn (NEGATIVE) U Benzodiazepines Scrn (NEGATIVE) U Cocaine Metab Screen (NEGATIVE) U Marijuana (THC) Screen (NEGATIVE) Ethyl Alcohol mg/dL 11/07/19 Range/Units 06:03 WBC (4.0-11.0) K/uL RBC (4.30-5.90) M/uL Hgb (12.0-16.0) g/dL Hct (36.0-46.0) % MCV (80.0-98.0) fL MCH (27.0-32.0) pg MCHC (31.0-37.0) g/dL RDW Std Deviation (28.0-62.0) fl RDW Coeff of Tonya (11.0-15.0) % Plt Count (150-400) K/uL MPV (7.40-12.00) fL Neut % (Auto) (48.0-80.0) % Lymph % (Auto) (16.0-40.0) % [place] % (Auto) (0.0-15.0) % Eos % (Auto) (0.0-7.0) % Baso % (Auto) (0.0-1.5) % Neut # (Auto) (1.4-5.7) K/uL Lymph # (Auto) (0.6-2.4) K/uL [place] # (Auto) (0.0-0.8) K/uL Eos # (Auto) (0.0-0.7) K/uL Baso # (Auto) (0.0-0.1) K/uL Nucleated RBC % /100WBC Nucleated RBCs # K/uL Sodium (136-145) mmol/L Potassium (3.5-5.1) mmol/L Chloride (98-107) mmol/L Carbon Dioxide (21.0-32.0) mmol/L BUN (7.0-18.0) mg/dL Creatinine (0.6-1.0) mg/dL Est Cr Clr Drug Dosing mL/min Estimated GFR (MDRD) ml/min Glucose (74-106) mg/dL POC Glucose 114 H (60-110) mg/dL Calcium (8.5-10.1) mg/dL Magnesium (1.8-2.4) mg/dL Total Bilirubin (0.2-1.0) mg/dL AST (15-37) IU/L ALT (14-63) IU/L Alkaline Phosphatase (46-116) U/L Ammonia (19-54) ug/dL Total Protein (6.4-8.2) g/dL Albumin (3.4-5.0) g/dL Globulin (2.6-4.0) g/dL Albumin/Globulin Ratio (0.9-1.6) Amylase (25-115) U/L Lipase (73-393) U/L HCG, Qual (NEG) Urine Color Urine Appearance Urine pH (5.0-8.0) Ur Specific [place] (1.001-1.035) Urine Protein (NEGATIVE) mg/dL Urine Glucose (UA) (NEGATIVE) mg/dL Urine Ketones (NEGATIVE) mg/dL Urine Occult Blood (NEGATIVE) Urine Nitrite (NEGATIVE) Urine Bilirubin (NEGATIVE) Urine Urobilinogen (<2.0) EU/dL Ur Leukocyte Esterase (NEGATIVE) Urine RBC (0-2/HPF) Urine WBC (0-5/HPF) Ur Epithelial Cells (NONE-FEW) Urine Bacteria (NEGATIVE) Urine Mucus (NONE-MOD) Urine Opiates Screen (NEGATIVE) Ur Oxycodone Screen (NEGATIVE) Urine Methadone Screen (NEGATIVE) Ur Barbiturates Screen (NEGATIVE) Ur Phencyclidine Scrn (NEGATIVE) Ur Amphetamine Screen (NEGATIVE) U Methamphetamines Scrn (NEGATIVE) U Benzodiazepines Scrn (NEGATIVE) U Cocaine Metab Screen (NEGATIVE) U Marijuana (THC) Screen (NEGATIVE) Ethyl Alcohol mg/dL Med Orders - Current: Current Medications Folic Acid (Folic Acid) 1 mg SUBCUT DAILY [facility] Last Admin: 11/06/19 14:43 Dose: 1 mg Hydromorphone HCl (Dilaudid) 1 mg IVPUSH Q3H PRN PRN Reason: Pain Last Admin: 11/07/19 05:53 Dose: 1 mg Pantoprazole Sodium 40 mg/ (Sodium Chloride) 10 mls @ 300 mls/hr IV Q12H [facility] Last Admin: 11/07/19 02:12 Dose: 300 mls/hr Dextrose/Sodium Chloride (Dextrose 5%-Normal Saline) 1,000 mls @ 200 mls/hr IV ASDIRECTED [facility] Last Admin: 11/07/19 05:50 Dose: 200 mls/hr Lorazepam (Ativan) 0 mg IV Q4H PRN; Protocol PRN Reason: CIWAA Nicotine (Habitrol) 14 mg TRDERM Q24H [facility] Last Admin: 11/06/19 16:28 Dose: Not Given Ondansetron HCl (Zofran) 4 mg PO Q4H PRN PRN Reason: Nausea/Vomiting Last Admin: 11/06/19 23:21 Dose: 4 mg Thiamine HCl (Vitamin B-1) 100 mg IVPUSH DAILY [facility] Last Admin: 11/06/19 14:47 Dose: 100 mg Discontinued Medications Sodium Chloride (Normal Saline) 1,000 mls @ 999 mls/hr IV STAT ONE Stop: 11/06/19 11:58 Last Admin: 11/06/19 11:02 Dose: 999 mls/hr Sodium Chloride (Normal Saline) 1,000 mls @ 999 mls/hr IV STAT ONE Stop: 11/06/19 13:09 Last Admin: 11/06/19 12:15 Dose: 999 mls/hr Sodium Chloride (Normal Saline) 1,000 mls @ 200 mls/hr IV NOW STA Stop: 11/06/19 18:49 Last Admin: 11/06/19 14:06 Dose: 200 mls/hr Sodium Chloride (Normal Saline) 1,000 mls @ 200 mls/hr IV Q5H [facility] Last Admin: 11/06/19 14:41 Dose: 200 mls/hr Magnesium Sulfate 2 gm/ Premix 50 mls @ 50 mls/hr IV ONETIME ONE Stop: 11/06/19 16:19 Last Admin: 11/06/19 15:38 Dose: 50 mls/hr Lorazepam (Ativan) 0.5 mg IVPUSH ONETIME ONE Stop: 11/06/19 10:59 Last Admin: 11/06/19 11:03 Dose: 0.5 mg Lorazepam (Ativan) 0.5 mg IVPUSH ONETIME ONE Stop: 11/06/19 11:58 Last Admin: 11/06/19 12:05 Dose: 0.5 mg Lorazepam (Ativan) 1 mg IVPUSH ONETIME ONE Stop: 11/06/19 12:50 Last Admin: 11/06/19 12:58 Dose: 1 mg Nicotine (Habitrol) 21 mg TRDERM ONETIME ONE Stop: 11/06/19 13:58 Last Admin: 11/06/19 14:06 Dose: 21 mg Ondansetron HCl (Zofran) 4 mg IVPUSH ONETIME ONE Stop: 11/06/19 10:59 Last Admin: 11/06/19 11:03 Dose: 4 mg Ondansetron HCl (Zofran) 4 mg IVPUSH ONETIME ONE Stop: 11/06/19 12:12 Last Admin: 11/06/19 12:15 Dose: 4 mg Ondansetron HCl (Zofran) 4 mg IVPUSH ONETIME ONE Stop: 11/06/19 12:13 Last Admin: 11/06/19 12:27 Dose: Not Given Promethazine HCl (Phenergan) 25 mg IM Q6H PRN PRN Reason: Nausea - Exam General: Alert, Oriented, Cooperative, No Acute Distress Lungs: Clear to Auscultation, Normal Respiratory Effort Cardiovascular: Regular Rate, Regular Rhythm GI/Abdominal Exam: Normal Bowel Sounds, Soft, Tender Back Exam: Normal Inspection, Full Range of Motion Extremities: Normal Inspection, Normal Range of Motion, Non-Tender, No Pedal Edema Neurological: No New Focal Deficit Psy/Mental Status: Alert, Normal Affect, Normal Mood Sepsis Event Note - Evaluation Sepsis Screening Result: No Definite Risk - Focused Exam Vital Signs: Vital Signs Temp Pulse Resp BP Pulse Ox 11/07/19 04:27 96.8 F L 65 18 97/65 99 11/06/19 23:15 99 F 87 18 118/57 L 98 Date Exam was Performed: 11/07/19 Time Exam was Performed: 10:23 - Problem List & Annotations (1) Acute on chronic pancreatitis SNOMED Code(s): 666497436 Code(s): K85.90 - ACUTE PANCREATITIS WITHOUT NECROSIS OR INFECTION, UNSP; K86.1 - OTHER CHRONIC PANCREATITIS Status: Acute Current Visit: Yes (2) Alcohol withdrawal syndrome SNOMED Code(s): 958214550 Code(s): F10.239 - ALCOHOL DEPENDENCE WITH WITHDRAWAL, UNSPECIFIED Status: Acute Current Visit: Yes Qualifiers: Complication of substance-induced condition: uncomplicated Qualified Code(s ): F10.230 - Alcohol dependence with withdrawal, uncomplicated (3) Abdominal pain SNOMED Code(s): 79772756 Code(s): R10.9 - UNSPECIFIED ABDOMINAL PAIN Status: Acute Current Visit: No (4) Leukocytosis, unspecified SNOMED Code(s): 431174172, 270671616 Code(s): D72.829 - ELEVATED WHITE BLOOD CELL COUNT, UNSPECIFIED Status: Acute Current Visit: No Qualifiers: Leukocytosis type: unspecified Qualified Code(s): D72.829 - Elevated white blood cell count, unspecified - Problem List Review Problem List Initiated/Reviewed/Updated: Yes - My Orders Last 24 Hours: My Active Orders 11/06/19 14:15 Intake and Output [RC] Q12H Oxygen Therapy [RC] PRN Up With Assistance [RC] ASDIRECTED VTE/DVT Education [RC] PER UNIT ROUTINE Vital Signs [RC] Q4H LORazepam [Ativan] See Protocol IV Q4H PRN Sequential Compression Device [OM.PC] Per Unit Routine Resuscitation Status Routine 11/06/19 14:16 Antiembolic Devices [RC] PER UNIT ROUTINE 11/06/19 14:17 CIWAA Assessment [RC] Q4H Ondansetron [Zofran] 4 mg PO Q4H PRN 11/06/19 14:30 Folic Acid 1 mg SUBCUT DAILY Thiamine [Vitamin B-1] 100 mg IVPUSH DAILY 11/06/19 14:45 Pantoprazole [ProTONIX IV] 40 mg Sodium Chloride 0.9% [Normal Saline] 10 ml IV Q12H 11/06/19 14:52 HYDROmorphone [Dilaudid] 1 mg IVPUSH Q3H PRN 11/06/19 15:37 C DIFFICILE AG/TOXIN W/REFLEX [RM] Routine 11/06/19 16:00 Nicotine [Habitrol] 14 mg TRDERM Q24H 11/06/19 18:00 Blood Glucose Check, Bedside [RC] Q6H 11/06/19 Dinner NPO [Nothing Per Oral Diet] [DIET] 11/08/19 05:11 CBC WITH AUTO DIFF [HEME] AM COMPREHENSIVE METABOLIC PN,CMP [CHEM] AM MAGNESIUM [CHEM] AM 11/09/19 05:11 CBC WITH AUTO DIFF [HEME] AM COMPREHENSIVE METABOLIC PN,CMP [CHEM] AM MAGNESIUM [CHEM] AM - Plan Plan:: THis 34 year old female admitted with suspected acute on chronic pancreatitis and alcohol withdrawal 1. Acute on chronic pancreatitis - Has chronic abdominal pain and is correlated with drinking, likely has component of chronic pancreatitis - Lipase remains normal - IVFs, D5NS 200 ml/hr - Dilaudid for pain - Zofran PRN nausea - Trial CL diet - Leukocytosis resolved, likely related to dehydration - No further diarrhea noted cancel cdiff 2. Alcohol withdrawal - CIWAAs stable, more fidgety from pain than alcohol withdrawal currently. Follows directions well, no diaphoresis, anxiety or hallucinations noted - CIWAA with Ativan Protocol PRN - Folic and Thiamine supplementation - Denies hx of seizures from alcohol withdrawal - reports friend is trying to get her into a treatment facility as outpatient VTE prophylaxis: SCDs and ambulation Dispo: 2-3 days pending improvement
[2019-11-07] MEDS ORDERED: Ketorolac 30 MG/ML SDV IVPUSH ONE (09:03)
[2019-11-07] MEDS: Thiamine 200 MG/2 ML MDV IVPUSH SCH (09:21)
[2019-11-07] MEDS: Folic Acid 50 MG/10 ML MDV SUBCUT SCH (09:22)
[2019-11-07] MEDS: Nicotine 14 MG/24 Hr Patch TRDERM SCH (15:14)
[2019-11-07] MEDS: Ondansetron 4 MG Tab PO PRN (22:26)
[2019-11-08] MEDS: HYDROmorphone 1 MG/ML Syringe IVPUSH PRN ×4 (00:31→22:27)
[2019-11-08] MEDS: Pantoprazole 40 MG in Sodium Chloride 0.9% 10 ML IV SCH ×2 (02:36→15:01)
[2019-11-08] MEDS: Dextrose 5%-0.9% NaCl 1,000 ML IV SCH ×4 (03:31→22:33)
[2019-11-08] MEDS: Ondansetron 4 MG Tab PO PRN (05:38)
[2019-11-08 06:08] LABS: BLOOD UREA NITROGEN,BUN 3 mg/dL (7.0-18.0); CARBON DIOXIDE,CO2 26.6 mmol/L (21.0-32.0); CHLORIDE,CL 110 mmol/L (98-107); GLUCOSE RANDOM 114 mg/dL (74-106); POTASSIUM,K 3.6 mmol/L (3.5-5.1); SODIUM,NA 141 mmol/L (136-145)
[2019-11-08] MEDS ORDERED: Magnesium Sulfate/Water 2 GM in Premix Bag 1 BAG IV ONE (08:07)
--- NOTE | 2019-11-08 08:08 | PCM.PN ---
- General Info Date of Service: 11/08/19 Admission Dx/Problem (Free Text): Admission Diagnosis/Problem Admission Diagnosis/Problem Alcohol withdrawal syndrome Subjective Update: Emesis overnight with a lot of nausea. No chest pain or SOB. Abdominal pain to epigastric region continues. Functional Status: Reports: Ambulating, Urinating. Denies: Pain Controlled, Tolerating Diet - Review of Systems General: Reports: No Symptoms HEENT: Reports: No Symptoms Pulmonary: Reports: No Symptoms. Denies: Shortness of Breath Cardiovascular: Reports: No Symptoms. Denies: Chest Pain Gastrointestinal: Reports: Abdominal Pain, Flatus, Nausea, Vomiting. Denies: Diarrhea Genitourinary: Reports: No Symptoms. Denies: Dysuria, Frequency, Burning Musculoskeletal: Reports: No Symptoms Skin: Reports: No Symptoms Neurological: Reports: No Symptoms Psychiatric: Reports: No Symptoms - Patient Data Vitals - Most Recent: Last Vital Signs Temp 97.5 F 11/08/19 03:32 Pulse 69 11/08/19 03:32 Resp 18 11/08/19 03:32 BP 116/67 11/08/19 03:32 Pulse Ox 94 L 11/08/19 03:32 Weight - Most Recent: 54.4 kg I&O - Last 24 Hours: Intake & Output 11/07/19 11/08/19 11/08/19 22:59 06:59 14:59 Intake Total 30 2390 Output Total 500 Balance 30 1890 Lab Results Last 24 Hours: Laboratory Results - last 24 hr 11/07/19 11/07/19 11/08/19 Range/Units 12:12 17:55 00:06 WBC (4.0-11.0) K/uL RBC (4.30-5.90) M/uL Hgb (12.0-16.0) g/dL Hct (36.0-46.0) % MCV (80.0-98.0) fL MCH (27.0-32.0) pg MCHC (31.0-37.0) g/dL RDW Std Deviation (28.0-62.0) fl RDW Coeff of Tonya (11.0-15.0) % Plt Count (150-400) K/uL MPV (7.40-12.00) fL Neut % (Auto) (48.0-80.0) % Lymph % (Auto) (16.0-40.0) % [place] % (Auto) (0.0-15.0) % Eos % (Auto) (0.0-7.0) % Baso % (Auto) (0.0-1.5) % Neut # (Auto) (1.4-5.7) K/uL Lymph # (Auto) (0.6-2.4) K/uL [place] # (Auto) (0.0-0.8) K/uL Eos # (Auto) (0.0-0.7) K/uL Baso # (Auto) (0.0-0.1) K/uL Nucleated RBC % /100WBC Nucleated RBCs # K/uL Sodium (136-145) mmol/L Potassium (3.5-5.1) mmol/L Chloride (98-107) mmol/L Carbon Dioxide (21.0-32.0) mmol/L BUN (7.0-18.0) mg/dL Creatinine (0.6-1.0) mg/dL Est Cr Clr Drug Dosing mL/min Estimated GFR (MDRD) ml/min Glucose (74-106) mg/dL POC Glucose 78 107 117 H (60-110) mg/dL Calcium (8.5-10.1) mg/dL Magnesium (1.8-2.4) mg/dL Total Bilirubin (0.2-1.0) mg/dL AST (15-37) IU/L ALT (14-63) IU/L Alkaline Phosphatase (46-116) U/L Total Protein (6.4-8.2) g/dL Albumin (3.4-5.0) g/dL Globulin (2.6-4.0) g/dL Albumin/Globulin Ratio (0.9-1.6) 11/08/19 11/08/19 11/08/19 Range/Units 05:15 05:15 05:45 WBC 3.72 L (4.0-11.0) K/uL RBC 3.38 L (4.30-5.90) M/uL Hgb 11.5 L (12.0-16.0) g/dL Hct 34.8 L (36.0-46.0) % MCV 103.0 H (80.0-98.0) fL MCH 34.0 H (27.0-32.0) pg MCHC 33.0 (31.0-37.0) g/dL RDW Std Deviation 49.5 (28.0-62.0) fl RDW Coeff of Tonya 13 (11.0-15.0) % Plt Count 135 L (150-400) K/uL MPV 10.70 (7.40-12.00) fL Neut % (Auto) 48.1 (48.0-80.0) % Lymph % (Auto) 41.1 H (16.0-40.0) % [place] % (Auto) 9.4 (0.0-15.0) % Eos % (Auto) 1.1 (0.0-7.0) % Baso % (Auto) 0.3 (0.0-1.5) % Neut # (Auto) 1.8 (1.4-5.7) K/uL Lymph # (Auto) 1.5 (0.6-2.4) K/uL [place] # (Auto) 0.4 (0.0-0.8) K/uL Eos # (Auto) 0.0 (0.0-0.7) K/uL Baso # (Auto) 0.0 (0.0-0.1) K/uL Nucleated RBC % 0.0 /100WBC Nucleated RBCs # 0 K/uL Sodium 141 (136-145) mmol/L Potassium 3.6 (3.5-5.1) mmol/L Chloride 110 H (98-107) mmol/L Carbon Dioxide 26.6 (21.0-32.0) mmol/L BUN 3 L (7.0-18.0) mg/dL Creatinine 0.7 (0.6-1.0) mg/dL Est Cr Clr Drug Dosing 97.25 mL/min Estimated GFR (MDRD) > 60.0 ml/min Glucose 114 H (74-106) mg/dL POC Glucose 75 (60-110) mg/dL Calcium 7.3 L (8.5-10.1) mg/dL Magnesium 1.7 L (1.8-2.4) mg/dL Total Bilirubin 0.6 (0.2-1.0) mg/dL AST 38 H (15-37) IU/L ALT 48 (14-63) IU/L Alkaline Phosphatase 43 L (46-116) U/L Total Protein 4.8 L (6.4-8.2) g/dL Albumin 2.7 L (3.4-5.0) g/dL Globulin 2.1 L (2.6-4.0) g/dL Albumin/Globulin Ratio 1.3 (0.9-1.6) Med Orders - Current: Current Medications Folic Acid (Folic Acid) 1 mg SUBCUT DAILY [facility] Last Admin: 11/07/19 09:22 Dose: 1 mg Hydromorphone HCl (Dilaudid) 1 mg IVPUSH Q3H PRN PRN Reason: Pain Last Admin: 11/08/19 05:38 Dose: 1 mg Pantoprazole Sodium 40 mg/ (Sodium Chloride) 10 mls @ 300 mls/hr IV Q12H [facility] Last Admin: 11/08/19 02:36 Dose: 300 mls/hr Dextrose/Sodium Chloride (Dextrose 5%-Normal Saline) 1,000 mls @ 200 mls/hr IV ASDIRECTED [facility] Last Admin: 11/08/19 03:31 Dose: 200 mls/hr Magnesium Sulfate 2 gm/ Premix 50 mls @ 50 mls/hr IV ONETIME ONE Stop: 11/08/19 09:06 Lorazepam (Ativan) 0 mg IV Q4H PRN; Protocol PRN Reason: CIWAA Last Admin: 11/07/19 22:40 Dose: 1 mg Nicotine (Habitrol) 14 mg TRDERM Q24H [facility] Last Admin: 11/07/19 15:14 Dose: 14 mg Ondansetron HCl (Zofran) 4 mg PO Q4H PRN PRN Reason: Nausea/Vomiting Last Admin: 11/08/19 05:38 Dose: 4 mg Thiamine HCl (Vitamin B-1) 100 mg IVPUSH DAILY [facility] Last Admin: 11/07/19 09:21 Dose: 100 mg Discontinued Medications Sodium Chloride (Normal Saline) 1,000 mls @ 999 mls/hr IV STAT ONE Stop: 11/06/19 11:58 Last Admin: 11/06/19 11:02 Dose: 999 mls/hr Sodium Chloride (Normal Saline) 1,000 mls @ 999 mls/hr IV STAT ONE Stop: 11/06/19 13:09 Last Admin: 11/06/19 12:15 Dose: 999 mls/hr Sodium Chloride (Normal Saline) 1,000 mls @ 200 mls/hr IV NOW STA Stop: 11/06/19 18:49 Last Admin: 11/06/19 14:06 Dose: 200 mls/hr Sodium Chloride (Normal Saline) 1,000 mls @ 200 mls/hr IV Q5H [facility] Last Admin: 11/06/19 14:41 Dose: 200 mls/hr Magnesium Sulfate 2 gm/ Premix 50 mls @ 50 mls/hr IV ONETIME ONE Stop: 11/06/19 16:19 Last Admin: 11/06/19 15:38 Dose: 50 mls/hr Ketorolac Tromethamine (Toradol) 30 mg IVPUSH ONETIME ONE Stop: 11/07/19 09:04 Last Admin: 11/07/19 09:22 Dose: 30 mg Lorazepam (Ativan) 0.5 mg IVPUSH ONETIME ONE Stop: 11/06/19 10:59 Last Admin: 11/06/19 11:03 Dose: 0.5 mg Lorazepam (Ativan) 0.5 mg IVPUSH ONETIME ONE Stop: 11/06/19 11:58 Last Admin: 11/06/19 12:05 Dose: 0.5 mg Lorazepam (Ativan) 1 mg IVPUSH ONETIME ONE Stop: 11/06/19 12:50 Last Admin: 11/06/19 12:58 Dose: 1 mg Nicotine (Habitrol) 21 mg TRDERM ONETIME ONE Stop: 11/06/19 13:58 Last Admin: 11/06/19 14:06 Dose: 21 mg Ondansetron HCl (Zofran) 4 mg IVPUSH ONETIME ONE Stop: 11/06/19 10:59 Last Admin: 11/06/19 11:03 Dose: 4 mg Ondansetron HCl (Zofran) 4 mg IVPUSH ONETIME ONE Stop: 11/06/19 12:12 Last Admin: 11/06/19 12:15 Dose: 4 mg Ondansetron HCl (Zofran) 4 mg IVPUSH ONETIME ONE Stop: 11/06/19 12:13 Last Admin: 11/06/19 12:27 Dose: Not Given Promethazine HCl (Phenergan) 25 mg IM Q6H PRN PRN Reason: Nausea - Exam General: Alert, Oriented, Cooperative, No Acute Distress Lungs: Clear to Auscultation, Normal Respiratory Effort Cardiovascular: Regular Rate, Regular Rhythm GI/Abdominal Exam: Normal Bowel Sounds, Soft, No Distention, Tender (epigastric) Extremities: Normal Inspection, Normal Range of Motion, Non-Tender, No Pedal Edema Neurological: No New Focal Deficit Psy/Mental Status: Alert, Normal Affect, Normal Mood Sepsis Event Note - Evaluation Sepsis Screening Result: No Definite Risk - Focused Exam Vital Signs: Vital Signs Temp Pulse Resp BP Pulse Ox 11/08/19 03:32 97.5 F 69 18 116/67 94 L 11/08/19 00:17 98.2 F 68 16 115/70 97 11/07/19 20:55 98.1 F 54 L 14 125/79 98 Date Exam was Performed: 11/08/19 Time Exam was Performed: 13:23 - Problem List & Annotations (1) Acute on chronic pancreatitis SNOMED Code(s): 858334843 Code(s): K85.90 - ACUTE PANCREATITIS WITHOUT NECROSIS OR INFECTION, UNSP; K86.1 - OTHER CHRONIC PANCREATITIS Status: Acute Current Visit: Yes (2) Alcohol withdrawal syndrome SNOMED Code(s): 375020386 Code(s): F10.239 - ALCOHOL DEPENDENCE WITH WITHDRAWAL, UNSPECIFIED Status: Acute Current Visit: Yes Qualifiers: Complication of substance-induced condition: uncomplicated Qualified Code(s ): F10.230 - Alcohol dependence with withdrawal, uncomplicated (3) Abdominal pain SNOMED Code(s): 94693190 Code(s): R10.9 - UNSPECIFIED ABDOMINAL PAIN Status: Acute Current Visit: No (4) Leukocytosis, unspecified SNOMED Code(s): 741672979, 711921247 Code(s): D72.829 - ELEVATED WHITE BLOOD CELL COUNT, UNSPECIFIED Status: Acute Current Visit: No Qualifiers: Leukocytosis type: unspecified Qualified Code(s): D72.829 - Elevated white blood cell count, unspecified - Problem List Review Problem List Initiated/Reviewed/Updated: Yes - My Orders Last 24 Hours: My Active Orders 11/07/19 Lunch Clear Liquid Diet [DIET] 11/08/19 08:07 Magnesium Sulfate/Water [Magnesium Sulfate in Water Premix] 2 gm Premix Bag 1 bag IV ONETIME 11/09/19 05:11 CBC WITH AUTO DIFF [HEME] AM COMPREHENSIVE METABOLIC PN,CMP [CHEM] AM MAGNESIUM [CHEM] AM - Plan Plan:: THis 34 year old female admitted with suspected acute on chronic pancreatitis and alcohol withdrawal 1. Acute on chronic pancreatitis - Has chronic abdominal pain and is correlated with drinking, likely has component of chronic pancreatitis - Lipase remains normal - IVFs, D5NS 125 ml/hr - Dilaudid for pain - Zofran PRN nausea - NPO with Ice chips due to nausea and emesis with CL 2. Alcohol withdrawal: CIWAA scores low no ativan needed. - CIWAA with Ativan Protocol PRN - Folic and Thiamine supplementation - Denies hx of seizures from alcohol withdrawal - reports friend is trying to get her into a treatment facility as outpatient VTE prophylaxis: SCDs and ambulation Dispo: 2-3 days pending improvement
[2019-11-08] MEDS: Folic Acid 50 MG/10 ML MDV SUBCUT SCH (08:28)
[2019-11-08] MEDS: Thiamine 200 MG/2 ML MDV IVPUSH SCH (08:30)
[2019-11-08] MEDS: Nicotine 14 MG/24 Hr Patch TRDERM SCH (16:00)
[2019-11-08] MEDS ORDERED: Melatonin 3 MG Tab PO SCH (21:00)
[2019-11-09] MEDS: Pantoprazole 40 MG in Sodium Chloride 0.9% 10 ML IV SCH (03:36)
[2019-11-09] MEDS: HYDROmorphone 1 MG/ML Syringe IVPUSH PRN (05:44)
[2019-11-09 06:21] LABS: CARBON DIOXIDE,CO2 24.9 mmol/L (21.0-32.0); CHLORIDE,CL 112 mmol/L (98-107); GLUCOSE RANDOM 95 mg/dL (74-106); POTASSIUM,K 3.8 mmol/L (3.5-5.1); SODIUM,NA 142 mmol/L (136-145)
[2019-11-09] MEDS: Dextrose 5%-0.9% NaCl 1,000 ML IV SCH (06:31)
[2019-11-09 06:32] LABS: BLOOD UREA NITROGEN,BUN 1 mg/dL (7.0-18.0)
[2019-11-09] MEDS ORDERED: Magnesium Sulfate/Water 2 GM in Premix Bag 1 BAG IV ONE (07:48)
[2019-11-09] MEDS ORDERED: oxyCODONE 5 MG Tab PO PRN (08:09)
[2019-11-09] MEDS: Folic Acid 50 MG/10 ML MDV SUBCUT SCH (08:44)
[2019-11-09] MEDS: Thiamine 200 MG/2 ML MDV IVPUSH SCH (08:48)
[2019-11-09 12:49] VITALS: BP 137/82; PULSE 52
--- NOTE | 2019-11-09 14:00 | PCM.DCSUM1 ---
Discharge Summary - Hospital Course Brief History: This 34 year old female with pmh of alcohol abuse and chronic abdominal pain presented to the ED with complaints of nausea, vomiting and abdominal pain that started this morning around 0600. She reports she drank heavily last night and then felt this way this morning. She has been worked up extensively for abdominal pain, with no real answers as to what it is caused from. She denies fevers or chills. No chest pain or SOB. reports the abdominal pain is epigastric and radiates straight through to her back. The nausea and vomiting come and go. She reports some diarrhea this morning, not black or bloody in color. She denies urinary concerns. She reports she smokes 1 ppd, drinks alcohol a few times a week, binges more that daily use. No recreational drug use. In the ED leukocytosis noted at 19,090. Bi carb low at 15.7, Bun 11, Cr 1.1 Glucose 109, LFTs WNL. Lipase 123 ETOH 72. She was treated with Ativan, CIWAA scores 15-19 in ED. She was also given 3 L NS in ED. She will be admitted for acute pancreatitis with a chronic component likely as well as alcohol withdrawal. Diagnosis: Stroke: No - Discharge Data Discharge Date: 11/09/19 Discharge Disposition: Home, Self-Care 01 Condition: Stable - Referral to Home Health Primary Care Physician: PCP None - Discharge Diagnosis/Problem(s) (1) Acute on chronic pancreatitis SNOMED Code(s): 563876341 ICD Code: K85.90 - ACUTE PANCREATITIS WITHOUT NECROSIS OR INFECTION, UNSP; K86.1 - OTHER CHRONIC PANCREATITIS Status: Acute Current Visit: Yes (2) Alcohol withdrawal syndrome SNOMED Code(s): 728209729 ICD Code: F10.239 - ALCOHOL DEPENDENCE WITH WITHDRAWAL, UNSPECIFIED Status : Acute Current Visit: Yes Qualifiers: Complication of substance-induced condition: uncomplicated Qualified Code(s ): F10.230 - Alcohol dependence with withdrawal, uncomplicated (3) Abdominal pain SNOMED Code(s): 26392584 ICD Code: R10.9 - UNSPECIFIED ABDOMINAL PAIN Status: Acute Current Visit : No (4) Leukocytosis, unspecified SNOMED Code(s): 418925957, 506830827 ICD Code: D72.829 - ELEVATED WHITE BLOOD CELL COUNT, UNSPECIFIED Status: Acute Current Visit: No Qualifiers: Leukocytosis type: unspecified Qualified Code(s): D72.829 - Elevated white blood cell count, unspecified - Patient Summary/Data Hospital Course: admitting Diagnoses: Acute on chronic pancreatitis gastritis Alcohol withdrawal Discharge Diagnoses: Acute on chronic pancreatitis gastritis Alcohol withdrawal Edith was admitted and treated for abdominal pain, likely related to acute on chronic pancreatitis and or alcoholic gastritis. She was treated with bowel rest , PPI and IV fluids. She was given IV pain medication. Pain improved along with nausea. She trialed CL diet then soft and tolerated this well. She is feeling much improved today. She did complain of dry cough that has developed over the two days she was admit, no fevers or sputum production. Offered further testing such as chest xray, which she declined. Counseled extensively on sobriety from alcohol. She has a plan with support. Will provide resources as well. She will be discharged home today. She is to return to ED or clinic if concerns should arise. - Patient Instructions Diet: GI Soft/Low Residue/Low Fiber Activity: No Strenuous Activities, Rest and Relax Today Driving: Do Not Drive Showering/Bathing: May Shower Notify Provider of: Fever, Increased Pain, Swelling and Redness, Drainage, Nausea and/or Vomiting - Discharge Plan *PRESCRIPTION DRUG MONITORING PROGRAM REVIEWED*: Not Applicable *COPY OF PRESCRIPTION DRUG MONITORING REPORT IN PATIENT EDILBERTO: Not Applicable Prescriptions/Med Rec: Pantoprazole Sodium [Protonix] 40 mg PO DAILY #30 tablet. Home Medications: Home Meds Prenat 115/Iron Fum/Folic/Dss [ 19 Tablet] 1 each PO DAILY 11/06/19 [ History] Melatonin 6 mg PO BEDTIME tablet 11/09/19 [Rx] Pantoprazole Sodium [Protonix] 40 mg PO DAILY #30 tablet. 11/09/19 [Rx] Oxygen Therapy Mode: Room Air Referrals: Maggie Posada MD [Resident] - 11/13/19 1:00 pm - Discharge Summary/Plan Comment DC Time >30 min.: No - Patient Data Vitals - Most Recent: Last Vital Signs Temp 98.7 F 11/09/19 11:00 Pulse 52 L 11/09/19 11:00 Resp 16 11/09/19 11:00 BP 137/82 11/09/19 11:00 Pulse Ox 97 11/09/19 11:00 Weight - Most Recent: 54.4 kg I&O - Last 24 hours: Intake & Output 11/08/19 11/09/19 11/09/19 22:59 06:59 14:59 Intake Total 1150 1841 Output Total 1100 300 Balance 50 1541 Lab Results - Last 24 hrs: Laboratory Results - last 24 hr 11/08/19 11/08/19 11/09/19 Range/Units 18:03 22:54 05:18 WBC 4.48 (4.0-11.0) K/uL RBC 3.34 L (4.30-5.90) M/uL Hgb 11.4 L (12.0-16.0) g/dL Hct 33.9 L (36.0-46.0) % MCV 101.5 H (80.0-98.0) fL MCH 34.1 H (27.0-32.0) pg MCHC 33.6 (31.0-37.0) g/dL RDW Std Deviation 48.1 (28.0-62.0) fl RDW Coeff of Tonya 13 (11.0-15.0) % Plt Count 141 L (150-400) K/uL MPV 10.80 (7.40-12.00) fL Neut % (Auto) 62.3 (48.0-80.0) % Lymph % (Auto) 26.1 (16.0-40.0) % [place] % (Auto) 9.8 (0.0-15.0) % Eos % (Auto) 1.6 (0.0-7.0) % Baso % (Auto) 0.2 (0.0-1.5) % Neut # (Auto) 2.8 (1.4-5.7) K/uL Lymph # (Auto) 1.2 (0.6-2.4) K/uL [place] # (Auto) 0.4 (0.0-0.8) K/uL Eos # (Auto) 0.1 (0.0-0.7) K/uL Baso # (Auto) 0.0 (0.0-0.1) K/uL Nucleated RBC % 0.0 /100WBC Nucleated RBCs # 0 K/uL Sodium (136-145) mmol/L Potassium (3.5-5.1) mmol/L Chloride (98-107) mmol/L Carbon Dioxide (21.0-32.0) mmol/L BUN (7.0-18.0) mg/dL Creatinine (0.6-1.0) mg/dL Est Cr Clr Drug Dosing mL/min Estimated GFR (MDRD) ml/min Glucose (74-106) mg/dL POC Glucose 95 87 (60-110) mg/dL Calcium (8.5-10.1) mg/dL Magnesium (1.8-2.4) mg/dL Total Bilirubin (0.2-1.0) mg/dL AST (15-37) IU/L ALT (14-63) IU/L Alkaline Phosphatase (46-116) U/L Total Protein (6.4-8.2) g/dL Albumin (3.4-5.0) g/dL Globulin (2.6-4.0) g/dL Albumin/Globulin Ratio (0.9-1.6) 11/09/19 11/09/19 11/09/19 Range/Units 05:18 05:52 11:57 WBC (4.0-11.0) K/uL RBC (4.30-5.90) M/uL Hgb (12.0-16.0) g/dL Hct (36.0-46.0) % MCV (80.0-98.0) fL MCH (27.0-32.0) pg MCHC (31.0-37.0) g/dL RDW Std Deviation (28.0-62.0) fl RDW Coeff of Tonya (11.0-15.0) % Plt Count (150-400) K/uL MPV (7.40-12.00) fL Neut % (Auto) (48.0-80.0) % Lymph % (Auto) (16.0-40.0) % [place] % (Auto) (0.0-15.0) % Eos % (Auto) (0.0-7.0) % Baso % (Auto) (0.0-1.5) % Neut # (Auto) (1.4-5.7) K/uL Lymph # (Auto) (0.6-2.4) K/uL [place] # (Auto) (0.0-0.8) K/uL Eos # (Auto) (0.0-0.7) K/uL Baso # (Auto) (0.0-0.1) K/uL Nucleated RBC % /100WBC Nucleated RBCs # K/uL Sodium 142 (136-145) mmol/L Potassium 3.8 (3.5-5.1) mmol/L Chloride 112 H (98-107) mmol/L Carbon Dioxide 24.9 (21.0-32.0) mmol/L BUN 1 L (7.0-18.0) mg/dL Creatinine 0.8 (0.6-1.0) mg/dL Est Cr Clr Drug Dosing 85.09 mL/min Estimated GFR (MDRD) > 60.0 ml/min Glucose 95 (74-106) mg/dL POC Glucose 90 93 (60-110) mg/dL Calcium 8.0 L (8.5-10.1) mg/dL Magnesium 1.7 L (1.8-2.4) mg/dL Total Bilirubin 0.6 (0.2-1.0) mg/dL AST 28 (15-37) IU/L ALT 48 (14-63) IU/L Alkaline Phosphatase 43 L (46-116) U/L Total Protein 4.7 L (6.4-8.2) g/dL Albumin 2.6 L (3.4-5.0) g/dL Globulin 2.1 L (2.6-4.0) g/dL Albumin/Globulin Ratio 1.2 (0.9-1.6) Med Orders - Current: Current Medications Folic Acid (Folic Acid) 1 mg SUBCUT DAILY [facility] Last Admin: 11/09/19 08:44 Dose: 1 mg Pantoprazole Sodium 40 mg/ (Sodium Chloride) 10 mls @ 300 mls/hr IV Q12H [facility] Last Admin: 11/09/19 03:36 Dose: 300 mls/hr Dextrose/Sodium Chloride (Dextrose 5%-Normal Saline) 1,000 mls @ 125 mls/hr IV Q8H [facility] Last Admin: 11/09/19 06:31 Dose: 125 mls/hr Lorazepam (Ativan) 0 mg IV Q4H PRN; Protocol PRN Reason: CIWAA Last Admin: 11/07/19 22:40 Dose: 1 mg Melatonin (Melatonin) 6 mg PO BEDTIME [facility] Last Admin: 11/08/19 22:26 Dose: 6 mg Nicotine (Habitrol) 14 mg TRDERM Q24H [facility] Last Admin: 11/08/19 16:00 Dose: 14 mg Ondansetron HCl (Zofran) 4 mg PO Q4H PRN PRN Reason: Nausea/Vomiting Last Admin: 11/08/19 05:38 Dose: 4 mg Oxycodone HCl (Oxycodone) 5 mg PO Q4H PRN PRN Reason: Pain Thiamine HCl (Vitamin B-1) 100 mg IVPUSH DAILY [facility] Last Admin: 11/09/19 08:48 Dose: 100 mg Discontinued Medications Hydromorphone HCl (Dilaudid) 1 mg IVPUSH Q3H PRN PRN Reason: Pain Last Admin: 11/09/19 05:44 Dose: 1 mg Sodium Chloride (Normal Saline) 1,000 mls @ 999 mls/hr IV STAT ONE Stop: 11/06/19 11:58 Last Admin: 11/06/19 11:02 Dose: 999 mls/hr Sodium Chloride (Normal Saline) 1,000 mls @ 999 mls/hr IV STAT ONE Stop: 11/06/19 13:09 Last Admin: 11/06/19 12:15 Dose: 999 mls/hr Sodium Chloride (Normal Saline) 1,000 mls @ 200 mls/hr IV NOW STA Stop: 11/06/19 18:49 Last Admin: 11/06/19 14:06 Dose: 200 mls/hr Sodium Chloride (Normal Saline) 1,000 mls @ 200 mls/hr IV Q5H [facility] Last Admin: 11/06/19 14:41 Dose: 200 mls/hr Magnesium Sulfate 2 gm/ Premix 50 mls @ 50 mls/hr IV ONETIME ONE Stop: 11/06/19 16:19 Last Admin: 11/06/19 15:38 Dose: 50 mls/hr Dextrose/Sodium Chloride (Dextrose 5%-Normal Saline) 1,000 mls @ 200 mls/hr IV ASDIRECTED [facility] Last Admin: 11/08/19 08:24 Dose: 200 mls/hr Magnesium Sulfate 2 gm/ Premix 50 mls @ 50 mls/hr IV ONETIME ONE Stop: 11/08/19 09:06 Last Admin: 11/08/19 08:26 Dose: 50 mls/hr Magnesium Sulfate 2 gm/ Premix 50 mls @ 50 mls/hr IV ONETIME ONE Stop: 11/09/19 08:47 Last Admin: 11/09/19 08:41 Dose: 50 mls/hr Ketorolac Tromethamine (Toradol) 30 mg IVPUSH ONETIME ONE Stop: 11/07/19 09:04 Last Admin: 11/07/19 09:22 Dose: 30 mg Lorazepam (Ativan) 0.5 mg IVPUSH ONETIME ONE Stop: 11/06/19 10:59 Last Admin: 11/06/19 11:03 Dose: 0.5 mg Lorazepam (Ativan) 0.5 mg IVPUSH ONETIME ONE Stop: 11/06/19 11:58 Last Admin: 11/06/19 12:05 Dose: 0.5 mg Lorazepam (Ativan) 1 mg IVPUSH ONETIME ONE Stop: 11/06/19 12:50 Last Admin: 11/06/19 12:58 Dose: 1 mg Nicotine (Habitrol) 21 mg TRDERM ONETIME ONE Stop: 11/06/19 13:58 Last Admin: 11/06/19 14:06 Dose: 21 mg Ondansetron HCl (Zofran) 4 mg IVPUSH ONETIME ONE Stop: 11/06/19 10:59 Last Admin: 11/06/19 11:03 Dose: 4 mg Ondansetron HCl (Zofran) 4 mg IVPUSH ONETIME ONE Stop: 11/06/19 12:12 Last Admin: 11/06/19 12:15 Dose: 4 mg Ondansetron HCl (Zofran) 4 mg IVPUSH ONETIME ONE Stop: 11/06/19 12:13 Last Admin: 11/06/19 12:27 Dose: Not Given Promethazine HCl (Phenergan) 25 mg IM Q6H PRN PRN Reason: Nausea - Exam General: Reports: Alert, Oriented, Cooperative, No Acute Distress Lungs: Reports: Clear to Auscultation, Normal Respiratory Effort Cardiovascular: Reports: Regular Rate, Regular Rhythm GI/Abdominal Exam: Normal Bowel Sounds, Soft, Tender (scant epigastric pain) Back Exam: Reports: Normal Inspection, Full Range of Motion Extremities: Normal Inspection, Normal Range of Motion, Non-Tender Neurological: Reports: No New Focal Deficit Psy/Mental Status: Reports: Alert, Normal Affect, Normal Mood
== END 2019-11-09 15:10 | disposition home or self-care (01) | DRG 896 ==
LOC: MW.ED 10:40 → MW.MS 13:17 → OBSVTOIN 11-08 08:31
PROVIDERS: ADMIT Student in an Organized Health Care Education/Training Program; ATTEND Student in an Organized Health Care Education/Training Program
DX: F10.230 Alcohol dependence with withdrawal, uncomplicated (principal); K85.90 Acute pancreatitis without necrosis or infection, unspecified; K86.1 Other chronic pancreatitis; K29.70 Gastritis, unspecified, without bleeding; F17.200 Nicotine dependence, unspecified, uncomplicated; F41.9 Anxiety disorder, unspecified; F32.9 Major depressive disorder, single episode, unspecified; K29.20 Alcoholic gastritis without bleeding; F10.288 Alcohol dependence with other alcohol-induced disorder; Y90.3 Blood alcohol level of 60-79 mg/100 ml; Z79.899 Other long term (current) drug therapy
CPT/HCPCS: 36415; 80053; 80305-QW; 80307; 81001; 82140; 82150; 82962; 83690; 83735; 84703; 85025; 96361; 96374; 96375; 96376; 99284-25; A9270-GY; C9113; J1170; J1885; J2060; J2405; J3411; J3475; J7030; J7042; J7050

== ENCOUNTER 2019-11-10 09:43 | Emergency (ER) | payer MEDICAID ==
[2019-11-10] MEDS ORDERED: Sodium Chloride 0.9% 2.5 ML Syringe FLUSH PRN (09:56)
[2019-11-10] MEDS ORDERED: Sodium Chloride 0.9% 10 ML Syringe FLUSH PRN (09:56)
[2019-11-10] MEDS ORDERED: Sodium Chloride 0.9% 1,000 ML IV ONE (09:56)
[2019-11-10] MEDS ORDERED: Ondansetron 4 MG/2 ML SDV IVPUSH ONE ×2 (10:07→10:56)
--- NOTE | 2019-11-10 10:10 | EDM.PDOC ---
ED HPI GENERAL MEDICAL PROBLEM - General Chief Complaint: Abdominal Pain Stated Complaint: ABD PAIN Time Seen by Provider: 11/10/19 10:10 Source of Information: Reports: Patient History Limitations: Reports: No Limitations - History of Present Illness INITIAL COMMENTS - FREE TEXT/NARRATIVE: HISTORY AND PHYSICAL: History of present illness: Patient is a 34-year-old female returns to the ED for abdominal pain. Patient has a history of alcohol abuse and was recently admitted for acute on chronic pancreatitis and alcoholic gastritis 2 days ago. Patient states she was discharged yesterday and was doing well until this morning her pain came back. She states she took some tylenol and her prilosec without relief of symptoms. She had one episode of vomiting in ED. She states she has had some loose nonbloody stools. She states her pain is the same as when she was admitted and not new or worsening. She denies fevers, chills, dysuria, hematuria. She has not drank since before she was admitted, last time being on the . She denies any previous surgeries. She has a follow up in the clinic on Tuesday. She states pain makes her very anxious and she feels like she can't catch her breath. Patient does report daily marijuana use but has not used in 5 days. Review of systems: As per history of present illness and below otherwise all systems reviewed and negative. Past medical history: As per history of present illness and as reviewed below otherwise noncontributory. Surgical history: As per history of present illness and as reviewed below otherwise noncontributory. Social history: No reported history of drug or alcohol abuse. Family history: As per history of present illness and as reviewed below otherwise noncontributory. Physical exam: General: Patient sitting comfortably in no acute distress and nontoxic appearing HEENT: Atraumatic, normocephalic, pupils reactive, negative for conjunctival pallor or scleral icterus, mucous membranes moist, throat clear, neck supple, nontender, trachea midline. No meningeal signs. Lungs: Clear to auscultation, breath sounds equal bilaterally, chest nontender. Heart: S1S2, regular, negative for clicks, rubs, or overt murmur. Abdomen: Periumbilical and epigastric tenderness to palpation. Negative for masses or hepatosplenomegaly. Negative for costovertebral tenderness. No rigidity, rebound, guarding. Pelvis: Stable nontender. Genitourinary: Deferred. Rectal: Deferred. Extremities: Atraumatic, negative for cords or calf pain. Neurovascular unremarkable. Neuro: Awake, alert, oriented. Cranial nerves II through XII unremarkable. Cerebellum unremarkable. Motor and sensory unremarkable throughout. Exam nonfocal. Notes: Patient had no emesis during nursing triage and while I was in the room. Per nursing staff, patient on all fours making herself gag and putting her fingers in her mouth and has had a small amount of clear phlegm that she has vomited. Vomiting stopped after patient given Ativan. She reports pain improved but feels sore from the vomiting. She agrees to discharge and follow up with primary care provider and understands to return to ED if any new or worsening symptoms. Diagnostics: CBC, CMP, lipase, UA, urine hcg Therapeutics: 1L NS IV 80mh protonix IV 4mg Zofran IV 4mg Morphine IV 40mEq Potassium PO 1mg Ativan PO Prescriptions: Connell Impression: Gastritis, abdominal pain, vomiting Plan: Continue protonix and take zofran as needed for nausea You may take norco as needed for severe pain Follow up with primary care provider Return to ED as needed as discussed Definitive disposition and diagnosis as appropriate pending reevaluation and review of above. Abdominal Pain Score (Numeric/FACES): 7 - Related Data Allergies Allergy/AdvReac Type Severity Reaction Status Date / Time No Known Allergies Allergy Verified 11/10/19 10:04 Home Meds: Home Meds Pantoprazole Sodium [Protonix] 40 mg PO DAILY #30 tablet. 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 Endocrine/Metabolic History: Reports: None Insulin Pump Model and [employer]aler: None Hematologic History: Reports: None Immunologic History: Reports: None Oncologic (Cancer) History: Reports: None Dermatologic History: Reports: None - Infectious Disease History Infectious Disease History: Reports: None - Past Surgical History Head Surgeries/Procedures: Reports: None HEENT Surgical History: Reports: None Cardiovascular Surgical History: Reports: None GI Surgical History: Reports: None Social & Family History - Family History Family Medical History: Noncontributory - Tobacco Use Smoking Status *Q: Current Every Day Smoker Years of Tobacco use: 5 Packs/Tins Daily: 1 - Caffeine Use Caffeine Use: Reports: None Other Caffeine Use: Headache medicine - Recreational Drug Use Recreational Drug Use: Yes Recreational Drug Type: Reports: Marijuana/Hashish Recreational Drug Use Frequency: Socially - Living Situation & Occupation Occupation: Employed ED ROS GENERAL - Review of Systems Review Of Systems: Comprehensive ROS is negative, except as noted in HPI. ED EXAM, GI/ABD - Physical Exam Exam: See Below (see dictation) Course - Vital Signs Last Recorded V/S: Last Vital Signs Temp 97.6 F 11/10/19 10:05 Pulse 71 11/10/19 11:16 Resp 17 11/10/19 11:16 BP 108/66 11/10/19 11:16 Pulse Ox 99 11/10/19 11:16 - Orders/Labs/Meds Orders: Active Orders 24 hr Category Date Time Status Sodium Chloride 0.9% [Saline Flush] Med 11/10/19 09:56 Active 10 ml FLUSH ASDIRECTED PRN Sodium Chloride 0.9% [Saline Flush] Med 11/10/19 09:56 Active 2.5 ml FLUSH ASDIRECTED PRN Saline Lock Insert [OM.PC] Stat Oth 11/10/19 09:56 Ordered Medication Orders Sodium Chloride (Saline Flush) 10 ml FLUSH ASDIRECTED PRN PRN Reason: Keep Vein Open Last Admin: 11/10/19 10:18 Dose: 10 ml Sodium Chloride (Saline Flush) 2.5 ml FLUSH ASDIRECTED PRN PRN Reason: Keep Vein Open Last Admin: 11/10/19 10:18 Dose: 2.5 ml Labs: Laboratory Tests 11/10/19 11/10/19 11/10/19 Range/Units 10:15 10:15 10:40 WBC 9.06 (4.0-11.0) K/uL RBC 3.84 L (4.30-5.90) M/uL Hgb 13.1 (12.0-16.0) g/dL Hct 37.5 (36.0-46.0) % MCV 97.7 (80.0-98.0) fL MCH 34.1 H (27.0-32.0) pg MCHC 34.9 (31.0-37.0) g/dL RDW Std Deviation 45.4 (28.0-62.0) fl RDW Coeff of Tonya 13 (11.0-15.0) % Plt Count 183 (150-400) K/uL MPV 10.80 (7.40-12.00) fL Neut % (Auto) 82.2 H (48.0-80.0) % Lymph % (Auto) 11.5 L (16.0-40.0) % [place] % (Auto) 5.6 (0.0-15.0) % Eos % (Auto) 0.6 (0.0-7.0) % Baso % (Auto) 0.1 (0.0-1.5) % Neut # (Auto) 7.5 H (1.4-5.7) K/uL Lymph # (Auto) 1.0 (0.6-2.4) K/uL [place] # (Auto) 0.5 (0.0-0.8) K/uL Eos # (Auto) 0.1 (0.0-0.7) K/uL Baso # (Auto) 0.0 (0.0-0.1) K/uL Nucleated RBC % 0.0 /100WBC Nucleated RBCs # 0 K/uL Sodium 144 (136-145) mmol/L Potassium 3.2 L (3.5-5.1) mmol/L Chloride 109 H (98-107) mmol/L Carbon Dioxide 19.6 L (21.0-32.0) mmol/L BUN 4 L (7.0-18.0) mg/dL Creatinine 1.0 (0.6-1.0) mg/dL Est Cr Clr Drug Dosing 68.11 mL/min Estimated GFR (MDRD) > 60.0 ml/min Glucose 97 (74-106) mg/dL Calcium 8.3 L (8.5-10.1) mg/dL Total Bilirubin 0.7 (0.2-1.0) mg/dL AST 63 H (15-37) IU/L ALT 82 H (14-63) IU/L Alkaline Phosphatase 61 (46-116) U/L Total Protein 5.7 L (6.4-8.2) g/dL Albumin 3.4 (3.4-5.0) g/dL Globulin 2.3 L (2.6-4.0) g/dL Albumin/Globulin Ratio 1.5 (0.9-1.6) Lipase 66 L (73-393) U/L Urine Color YELLOW Urine Appearance CLEAR Urine pH 6.0 (5.0-8.0) Ur Specific [place] 1.010 (1.001-1.035) Urine Protein NEGATIVE (NEGATIVE) mg/dL Urine Glucose (UA) NEGATIVE (NEGATIVE) mg/dL Urine Ketones NEGATIVE (NEGATIVE) mg/dL Urine Occult Blood TRACE-LYSED H (NEGATIVE) Urine Nitrite NEGATIVE (NEGATIVE) Urine Bilirubin NEGATIVE (NEGATIVE) Urine Urobilinogen 0.2 (<2.0) EU/dL Ur Leukocyte Esterase NEGATIVE (NEGATIVE) Urine RBC 0-2 (0-2/HPF) Urine WBC 0-1 (0-5/HPF) Ur Epithelial Cells RARE (NONE-FEW) Urine Bacteria RARE (NEGATIVE) Urine HCG, Qual (NEGATIVE) 11/10/19 Range/Units 10:40 WBC (4.0-11.0) K/uL RBC (4.30-5.90) M/uL Hgb (12.0-16.0) g/dL Hct (36.0-46.0) % MCV (80.0-98.0) fL MCH (27.0-32.0) pg MCHC (31.0-37.0) g/dL RDW Std Deviation (28.0-62.0) fl RDW Coeff of Tonya (11.0-15.0) % Plt Count (150-400) K/uL MPV (7.40-12.00) fL Neut % (Auto) (48.0-80.0) % Lymph % (Auto) (16.0-40.0) % [place] % (Auto) (0.0-15.0) % Eos % (Auto) (0.0-7.0) % Baso % (Auto) (0.0-1.5) % Neut # (Auto) (1.4-5.7) K/uL Lymph # (Auto) (0.6-2.4) K/uL [place] # (Auto) (0.0-0.8) K/uL Eos # (Auto) (0.0-0.7) K/uL Baso # (Auto) (0.0-0.1) K/uL Nucleated RBC % /100WBC Nucleated RBCs # K/uL Sodium (136-145) mmol/L Potassium (3.5-5.1) mmol/L Chloride (98-107) mmol/L Carbon Dioxide (21.0-32.0) mmol/L BUN (7.0-18.0) mg/dL Creatinine (0.6-1.0) mg/dL Est Cr Clr Drug Dosing mL/min Estimated GFR (MDRD) ml/min Glucose (74-106) mg/dL Calcium (8.5-10.1) mg/dL Total Bilirubin (0.2-1.0) mg/dL AST (15-37) IU/L ALT (14-63) IU/L Alkaline Phosphatase (46-116) U/L Total Protein (6.4-8.2) g/dL Albumin (3.4-5.0) g/dL Globulin (2.6-4.0) g/dL Albumin/Globulin Ratio (0.9-1.6) Lipase (73-393) U/L Urine Color Urine Appearance Urine pH (5.0-8.0) Ur Specific [place] (1.001-1.035) Urine Protein (NEGATIVE) mg/dL Urine Glucose (UA) (NEGATIVE) mg/dL Urine Ketones (NEGATIVE) mg/dL Urine Occult Blood (NEGATIVE) Urine Nitrite (NEGATIVE) Urine Bilirubin (NEGATIVE) Urine Urobilinogen (<2.0) EU/dL Ur Leukocyte Esterase (NEGATIVE) Urine RBC (0-2/HPF) Urine WBC (0-5/HPF) Ur Epithelial Cells (NONE-FEW) Urine Bacteria (NEGATIVE) Urine HCG, Qual NEGATIVE (NEGATIVE) Meds: Medications Generic Name Dose Route Start Last Admin Trade Name Freq PRN Reason Stop Dose Admin Sodium Chloride 10 ml 11/10/19 09:56 11/10/19 10:18 Saline Flush FLUSH 10 ml ASDIRECTED PRN Administration Keep Vein Open Sodium Chloride 2.5 ml 11/10/19 09:56 11/10/19 10:18 Saline Flush FLUSH 2.5 ml ASDIRECTED PRN Administration Keep Vein Open Discontinued Medications Generic Name Dose Route Start Last Admin Trade Name Freq PRN Reason Stop Dose Admin Sodium Chloride 1,000 mls @ 999 mls/hr 11/10/19 09:56 11/10/19 10:18 Normal Saline IV 11/10/19 10:56 999 mls/hr STAT ONE Administration Pantoprazole Sodium 80 mg/ 20 mls @ 420 mls/hr 11/10/19 10:22 11/10/19 10:36 Sodium Chloride IVPUSH 11/10/19 10:24 420 mls/hr ONETIME ONE Administration Lorazepam 1 mg 11/10/19 11:21 11/10/19 11:24 Ativan IVPUSH 11/10/19 11:22 1 mg ONETIME ONE Administration Morphine Sulfate 4 mg 11/10/19 10:22 11/10/19 10:36 Morphine IVPUSH 11/10/19 10:23 4 mg ONETIME ONE Administration Ondansetron HCl 4 mg 11/10/19 10:07 11/10/19 10:18 Zofran IVPUSH 11/10/19 10:08 4 mg ONETIME ONE Administration Ondansetron HCl 4 mg 11/10/19 10:56 11/10/19 11:20 Zofran IVPUSH 11/10/19 10:57 4 mg ONETIME ONE Administration Potassium Chloride 40 meq 11/10/19 11:02 11/10/19 11:20 Potassium Chloride PO 11/10/19 11:03 40 meq ONETIME ONE Administration Departure - Departure Time of Disposition: 11:51 Disposition: Home, Self-Care 01 Condition: Good Clinical Impression: Abdominal pain, Vomiting, Gastritis - Discharge Information Prescriptions: Hydrocodone/Acetaminophen [Connell 5-325 Tablet] 1 each PO Q6H #15 tablet Referrals: PCP,None [Primary Care Provider] - Forms: ED Department Discharge Additional Instructions: The following information is given to patients seen in the emergency department who are being discharged to home. This information is to outline your options for follow-up care. We provide all patients seen in our emergency department with a follow-up referral. The need for follow-up, as well as the timing and circumstances, are variable depending upon the specifics of your emergency department visit. If you don't have a primary care physician on staff, we will provide you with a referral. We always advise you to contact your personal physician following an emergency department visit to inform them of the circumstance of the visit and for follow-up with them and/or the need for any referrals to a consulting specialist. The emergency department will also refer you to a specialist when appropriate. This referral assures that you have the opportunity for follow-up care with a specialist. All of these measure are taken in an effort to provide you with optimal care, which includes your follow-up. Under all circumstances we always encourage you to contact your private physician who remains a resource for coordinating your care. When calling for follow-up care, please make the office aware that this follow-up is from your recent emergency room visit. If for any reason you are refused follow-up, please contact the [facility] Emergency Department at and asked to speak to the emergency department charge nurse. [facility] [address] [place] [id number] [id number] Continue protonix and take zofran as needed for nausea You may take norco as needed for severe pain Follow up with primary care provider Return to ED as needed as discussed Sepsis Event Note - Evaluation Sepsis Screening Result: No Definite Risk - Focused Exam Vital Signs: Vital Signs Temp Pulse Resp BP Pulse Ox 11/10/19 11:16 71 17 108/66 99 11/10/19 10:05 97.6 F 59 L 20 109/73 98 Date Exam was Performed: 11/10/19 Time Exam was Performed: 11:53 - My Orders Last 24 Hours: My Active Orders 11/10/19 09:56 Sodium Chloride 0.9% [Saline Flush] 10 ml FLUSH ASDIRECTED PRN Sodium Chloride 0.9% [Saline Flush] 2.5 ml FLUSH ASDIRECTED PRN Saline Lock Insert [OM.PC] Stat - Assessment/Plan Last 24 Hours: My Active Orders 11/10/19 09:56 Sodium Chloride 0.9% [Saline Flush] 10 ml FLUSH ASDIRECTED PRN Sodium Chloride 0.9% [Saline Flush] 2.5 ml FLUSH ASDIRECTED PRN Saline Lock Insert [OM.PC] Stat
[2019-11-10] MEDS ORDERED: Morphine 4 MG/ML Syringe IVPUSH ONE (10:22)
[2019-11-10] MEDS ORDERED: Pantoprazole 80 MG in Sodium Chloride 0.9% 20 ML IVPUSH ONE (10:22)
[2019-11-10 10:56] LABS: BLOOD UREA NITROGEN,BUN 4 mg/dL (7.0-18.0); CARBON DIOXIDE,CO2 19.6 mmol/L (21.0-32.0); CHLORIDE,CL 109 mmol/L (98-107); GLUCOSE RANDOM 97 mg/dL (74-106); LIPASE 66 U/L (73-393); POTASSIUM,K 3.2 mmol/L (3.5-5.1); SODIUM,NA 144 mmol/L (136-145)
[2019-11-10] MEDS ORDERED: Potassium Chloride 10% 20 MEQ/15 ML Soln 30 ML UD Cup PO ONE (11:02)
[2019-11-10] MEDS ORDERED: LORazepam 2 MG/ML SDV IVPUSH ONE (11:21)
[2019-11-10 12:07] VITALS: BP 126/71; PULSE 66
== END 2019-11-10 12:07 | disposition home or self-care (01) ==
LOC: MW.ED 09:43
DX: K29.70 Gastritis, unspecified, without bleeding (principal); F17.210 Nicotine dependence, cigarettes, uncomplicated; Z79.899 Other long term (current) drug therapy
CPT/HCPCS: 36415; 80053; 81001; 81025; 83690; 85025; 96361; 96374; 96375; 96376; 99284; A9270; C9113; J2060; J2270; J2405; J7030

== ENCOUNTER 2019-11-12 10:53 | Emergency (ER) | payer MEDICAID ==
[2019-11-12] MEDS ORDERED: Sodium Chloride 0.9% 1,000 ML IV ONE (11:05)
[2019-11-12] MEDS ORDERED: Sodium Chloride 0.9% 10 ML Syringe FLUSH PRN (11:05)
[2019-11-12] MEDS ORDERED: Sodium Chloride 0.9% 2.5 ML Syringe FLUSH PRN ×2 (11:05)
[2019-11-12] MEDS ORDERED: Famotidine 20 MG/2 ML SDV IVPUSH ONE (11:06)
[2019-11-12] MEDS ORDERED: Haloperidol Lactate 5 MG/ML SDV IM ONE (11:08)
--- NOTE | 2019-11-12 11:17 | EDM.PDOC ---
ED HPI GENERAL MEDICAL PROBLEM - General Chief Complaint: Gastrointestinal Problem Stated Complaint: POSSIBLE ALLERGIC REACTION TO MEDS Time Seen by Provider: 11/12/19 10:58 - History of Present Illness INITIAL COMMENTS - FREE TEXT/NARRATIVE: History of present illness: [Patient presents with nausea vomiting and epigastric pain that is similar to prior episodes she has multiple visits for nausea vomiting and epigastric pain and negative prior work-ups. She denies any fever chills no diarrhea nothing seems to make it better or worse she tried hydrocodone and Zofran at home this morning prior to arrival she also admits to frequent marijuana usage. Prior surgeries no other medical problems nothing makes it better] Review of systems: As per history of present illness and below otherwise all systems reviewed and negative. Past medical history: As per history of present illness and as reviewed below otherwise noncontributory. Surgical history: As per history of present illness and as reviewed below otherwise noncontributory. Social history: No reported history of drug or alcohol abuse. Family history: As per history of present illness and as reviewed below otherwise noncontributory. Physical exam: HEENT: Atraumatic, normocephalic, pupils reactive, negative for conjunctival pallor or scleral icterus, mucous membranes moist, throat clear, neck supple, nontender, trachea midline. Lungs: Clear to auscultation, breath sounds equal bilaterally, chest nontender. Heart: S1S2, regular, negative for clicks, rubs, or JVD. Abdomen: Soft, nondistended, nontender. Negative for masses or hepatosplenomegaly. Negative for costovertebral tenderness. Pelvis: Stable nontender. Genitourinary: Deferred. Rectal: Deferred. Extremities: Atraumatic, negative for cords or calf pain. Neurovascular unremarkable. Neuro: Awake, alert, oriented. Cranial nerves II through XII unremarkable. Cerebellum unremarkable. Motor and sensory unremarkable throughout. Exam nonfocal. Diagnostics: [] Therapeutics: [] Impression: Vomiting abdominal pain [] Plan: Treated with fluids antiemetics and Pepcid. She will then be reassessed [] Definitive disposition and diagnosis as appropriate pending reevaluation and review of above. Abdominal Pain Score (Numeric/FACES): 10 - Related Data Allergies Allergy/AdvReac Type Severity Reaction Status Date / Time No Known Allergies Allergy Verified 11/12/19 10:58 Home Meds: Home Meds Pantoprazole Sodium [Protonix] 40 mg PO DAILY #30 tablet. 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 Endocrine/Metabolic History: Reports: None Insulin Pump Model and Addiction Social Worker: None Hematologic History: Reports: None Immunologic History: Reports: None Oncologic (Cancer) History: Reports: None Dermatologic History: Reports: None - Infectious Disease History Infectious Disease History: Reports: None - Past Surgical History Head Surgeries/Procedures: Reports: None HEENT Surgical History: Reports: None Cardiovascular Surgical History: Reports: None GI Surgical History: Reports: None Social & Family History - Family History Family Medical History: Noncontributory - Tobacco Use Smoking Status *Q: Unknown Ever Smoked - Caffeine Use Caffeine Use: Reports: None Other Caffeine Use: Headache medicine - Recreational Drug Use Recreational Drug Use: Yes Recreational Drug Type: Reports: Marijuana/Hashish - Living Situation & Occupation Occupation: Employed ED ROS GENERAL - Review of Systems Review Of Systems: See Below ED EXAM, GENERAL - Physical Exam Exam: See Below Course - Vital Signs Text/Narrative:: Patient is counseled to cease using marijuana as this is a likely cause of her cyclic vomiting symptoms. Patient has hypokalemia I spoke with the patient and notified her of this finding she states she cannot tolerate oral potassium. I ordered IV potassium repletion for the patient The patient has decided to leave and is not willing to stay for potassium repletion she is warned to return to the ED if she worsens. Last Recorded V/S: Last Vital Signs Temp 36.4 C 11/12/19 10:58 Pulse 88 11/12/19 11:38 Resp 20 11/12/19 11:38 BP 112/86 11/12/19 11:38 Pulse Ox 99 11/12/19 11:38 - Orders/Labs/Meds Orders: Active Orders 24 hr Category Date Time Status HCG QUALITATIVE,URINE [URCHEM] Stat Lab 11/12/19 11:05 Ordered D5 1/2 NS w/ 40 mEq/L KCl 1,000 ml Med 11/12/19 12:15 Active IV ASDIRECTED Sodium Chloride 0.9% [Saline Flush] Med 11/12/19 11:05 Active 10 ml FLUSH ASDIRECTED PRN Sodium Chloride 0.9% [Saline Flush] Med 11/12/19 11:05 Active 2.5 ml FLUSH ASDIRECTED PRN Sodium Chloride 0.9% [Saline Flush] Med 11/12/19 11:05 Active 2.5 ml FLUSH ASDIRECTED PRN Saline Lock Insert [OM.PC] Stat Oth 11/12/19 11:05 Ordered Medication Orders Potassium Chloride/Dextrose/Sod Cl (D5 1/2 Ns W/ 40 Meq/L Kcl) 1,000 mls @ 250 mls/hr IV ASDIRECTED JOSE Sodium Chloride (Saline Flush) 2.5 ml FLUSH ASDIRECTED PRN PRN Reason: Keep Vein Open Last Admin: 11/12/19 11:20 Dose: 2.5 ml Sodium Chloride (Saline Flush) 10 ml FLUSH ASDIRECTED PRN PRN Reason: Keep Vein Open Last Admin: 11/12/19 11:20 Dose: 10 ml Sodium Chloride (Saline Flush) 2.5 ml FLUSH ASDIRECTED PRN PRN Reason: Keep Vein Open Last Admin: 11/12/19 11:20 Dose: 2.5 ml Labs: Laboratory Tests 11/12/19 11/12/19 Range/Units 11:33 11:33 WBC 10.94 (4.0-11.0) K/uL RBC 3.86 L (4.30-5.90) M/uL Hgb 13.0 (12.0-16.0) g/dL Hct 38.0 (36.0-46.0) % MCV 98.4 H (80.0-98.0) fL MCH 33.7 H (27.0-32.0) pg MCHC 34.2 (31.0-37.0) g/dL RDW Std Deviation 46.8 (28.0-62.0) fl RDW Coeff of Tonya 13 (11.0-15.0) % Plt Count 196 (150-400) K/uL MPV 11.30 (7.40-12.00) fL Neut % (Auto) 88.0 H (48.0-80.0) % Lymph % (Auto) 6.5 L (16.0-40.0) % [place] % (Auto) 5.2 (0.0-15.0) % Eos % (Auto) 0.2 (0.0-7.0) % Baso % (Auto) 0.1 (0.0-1.5) % Neut # (Auto) 9.6 H (1.4-5.7) K/uL Lymph # (Auto) 0.7 (0.6-2.4) K/uL [place] # (Auto) 0.6 (0.0-0.8) K/uL Eos # (Auto) 0.0 (0.0-0.7) K/uL Baso # (Auto) 0.0 (0.0-0.1) K/uL Nucleated RBC % 0.0 /100WBC Nucleated RBCs # 0 K/uL Sodium 142 (136-145) mmol/L Potassium 2.9 L (3.5-5.1) mmol/L Chloride 106 (98-107) mmol/L Carbon Dioxide 24.0 (21.0-32.0) mmol/L BUN 7 (7.0-18.0) mg/dL Creatinine 1.0 (0.6-1.0) mg/dL Est Cr Clr Drug Dosing 71.33 mL/min Estimated GFR (MDRD) > 60.0 ml/min Glucose 111 H (74-106) mg/dL Calcium 8.5 (8.5-10.1) mg/dL Total Bilirubin 0.5 (0.2-1.0) mg/dL AST 84 H (15-37) IU/L ALT 144 H (14-63) IU/L Alkaline Phosphatase 107 (46-116) U/L Total Protein 6.3 L (6.4-8.2) g/dL Albumin 3.6 (3.4-5.0) g/dL Globulin 2.7 (2.6-4.0) g/dL Albumin/Globulin Ratio 1.3 (0.9-1.6) Lipase 78 (73-393) U/L Meds: Medications Generic Name Dose Route Start Last Admin Trade Name Freq PRN Reason Stop Dose Admin Potassium Chloride/Dextrose/Sod Cl 1,000 mls @ 250 mls/hr 11/12/19 12:15 D5 1/2 Ns W/ 40 Meq/L Kcl IV ASDIRECTED JOSE Sodium Chloride 2.5 ml 11/12/19 11:05 11/12/19 11:20 Saline Flush FLUSH 2.5 ml ASDIRECTED PRN Administration Keep Vein Open Sodium Chloride 10 ml 11/12/19 11:05 11/12/19 11:20 Saline Flush FLUSH 10 ml ASDIRECTED PRN Administration Keep Vein Open Sodium Chloride 2.5 ml 11/12/19 11:05 11/12/19 11:20 Saline Flush FLUSH 2.5 ml ASDIRECTED PRN Administration Keep Vein Open Discontinued Medications Generic Name Dose Route Start Last Admin Trade Name Freq PRN Reason Stop Dose Admin Famotidine 20 mg 11/12/19 11:06 11/12/19 11:19 Pepcid IVPUSH 11/12/19 11:07 20 mg ONETIME ONE Administration Haloperidol Lactate 5 mg 11/12/19 11:08 11/12/19 11:20 Haldol IM 11/12/19 11:09 5 mg ONETIME ONE Administration Sodium Chloride 1,000 mls @ 999 mls/hr 11/12/19 11:05 11/12/19 11:19 Normal Saline IV 11/12/19 12:05 999 mls/hr BOLUS ONE Administration Departure - Departure Time of Disposition: 12:48 Disposition: Against Medical Advice 07 Condition: Good, Fair Clinical Impression: Vomiting, Vomiting - Discharge Information *PRESCRIPTION DRUG MONITORING PROGRAM REVIEWED*: Not Applicable *COPY OF PRESCRIPTION DRUG MONITORING REPORT IN PATIENT EDILBERTO: Not Applicable Instructions: Nausea and Vomiting, Adult Referrals: Rosina Zuniga [Primary Care Provider] - Forms: ED Department Discharge Additional Instructions: The following information is given to patients seen in the emergency department who are being discharged to home. This information is to outline your options for follow-up care. We provide all patients seen in our emergency department with a follow-up referral. The need for follow-up, as well as the timing and circumstances, are variable depending upon the specifics of your emergency department visit. If you don't have a primary care physician on staff, we will provide you with a referral. We always advise you to contact your personal physician following an emergency department visit to inform them of the circumstance of the visit and for follow-up with them and/or the need for any referrals to a consulting specialist. The emergency department will also refer you to a specialist when appropriate. This referral assures that you have the opportunity for follow-up care with a specialist. All of these measure are taken in an effort to provide you with optimal care, which includes your follow-up. Under all circumstances we always encourage you to contact your private physician who remains a resource for coordinating your care. When calling for follow-up care, please make the office aware that this follow-up is from your recent emergency room visit. If for any reason you are refused follow-up, please contact the [facility] Emergency Department at and asked to speak to the emergency department charge nurse. [facility] [address] [place] [address] [place] [address] Sepsis Event Note - Evaluation Sepsis Screening Result: No Definite Risk - Focused Exam Vital Signs: Vital Signs Temp Pulse Resp BP Pulse Ox 11/12/19 11:38 88 20 112/86 99 11/12/19 10:58 36.4 C 74 20 126/56 L 98 Date Exam was Performed: 11/12/19 Time Exam was Performed: 12:46 - My Orders Last 24 Hours: My Active Orders 11/12/19 11:05 HCG QUALITATIVE,URINE [URCHEM] Stat Sodium Chloride 0.9% [Saline Flush] 10 ml FLUSH ASDIRECTED PRN Sodium Chloride 0.9% [Saline Flush] 2.5 ml FLUSH ASDIRECTED PRN Sodium Chloride 0.9% [Saline Flush] 2.5 ml FLUSH ASDIRECTED PRN Saline Lock Insert [OM.PC] Stat 11/12/19 12:15 D5 1/2 NS w/ 40 mEq/L KCl 1,000 ml IV ASDIRECTED - Assessment/Plan Last 24 Hours: My Active Orders 11/12/19 11:05 HCG QUALITATIVE,URINE [URCHEM] Stat Sodium Chloride 0.9% [Saline Flush] 10 ml FLUSH ASDIRECTED PRN Sodium Chloride 0.9% [Saline Flush] 2.5 ml FLUSH ASDIRECTED PRN Sodium Chloride 0.9% [Saline Flush] 2.5 ml FLUSH ASDIRECTED PRN Saline Lock Insert [OM.PC] Stat 11/12/19 12:15 D5 1/2 NS w/ 40 mEq/L KCl 1,000 ml IV ASDIRECTED
[2019-11-12 11:47] VITALS: BP 112/86; PULSE 88
[2019-11-12 12:03] LABS: BLOOD UREA NITROGEN,BUN 7 mg/dL (7.0-18.0); CHLORIDE,CL 106 mmol/L (98-107); GLUCOSE RANDOM 111 mg/dL (74-106); LIPASE 78 U/L (73-393); POTASSIUM,K 2.9 mmol/L (3.5-5.1); SODIUM,NA 142 mmol/L (136-145)
[2019-11-12] MEDS ORDERED: D5 1/2 NS w/ 40 mEq/L KCl 1,000 ML IV SCH (12:15)
== END 2019-11-12 12:50 | disposition left against medical advice (07) ==
LOC: MW.ED 10:53
DX: R11.2 Nausea with vomiting, unspecified (principal)
CPT/HCPCS: 36415; 80053; 83690; 85025; 96361; 96372; 96374; 99284; J1630; J7030; S0028; J3490

== ENCOUNTER 2020-03-14 23:28 | Emergency (ER) | payer MEDICAID ==
[2020-03-14] MEDS ORDERED: Sodium Chloride 0.9% 2.5 ML Syringe FLUSH PRN (23:43)
[2020-03-14] MEDS ORDERED: Sodium Chloride 0.9% 10 ML Syringe FLUSH PRN (23:43)
[2020-03-14] MEDS ORDERED: Ondansetron 4 MG/2 ML SDV IVPUSH ONE (23:43)
[2020-03-14] MEDS ORDERED: Sodium Chloride 0.9% 1,000 ML IV ONE (23:44)
[2020-03-14] MEDS ORDERED: Ondansetron 4 MG/2 ML SDV ONE (23:45)
[2020-03-14] MEDS ORDERED: LORazepam 2 MG/ML SDV IVPUSH ONE (23:49)
[2020-03-15] MEDS ORDERED: Metoclopramide 10 MG/2 ML SDV IVPUSH ONE (00:28)
--- NOTE | 2020-03-15 00:29 | EDM.PDOC ---
ED HPI GENERAL MEDICAL PROBLEM - General Chief Complaint: General Stated Complaint: SPOKE TO NURSE Time Seen by Provider: 03/14/20 23:49 bilateral hands Pain Score (Numeric/FACES): 10 - Related Data Allergies Allergy/AdvReac Type Severity Reaction Status Date / Time No Known Allergies Allergy Verified 03/15/20 00:07 Home Meds: Home Meds Pantoprazole Sodium [Protonix] 40 mg PO DAILY #30 tablet. 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 Endocrine/Metabolic History: Reports: None Insulin Pump Model and Manager Strategic Sourcing: None Hematologic History: Reports: None Immunologic History: Reports: None Oncologic (Cancer) History: Reports: None Dermatologic History: Reports: None - Infectious Disease History Infectious Disease History: Reports: None - Past Surgical History Head Surgeries/Procedures: Reports: None HEENT Surgical History: Reports: None Cardiovascular Surgical History: Reports: None GI Surgical History: Reports: None Social & Family History - Family History Family Medical History: Noncontributory - Tobacco Use Smoking Status *Q: Current Every Day Smoker Years of Tobacco use: 20 Packs/Tins Daily: 1 Second Hand Smoke Exposure: No - Caffeine Use Caffeine Use: Reports: Coffee Other Caffeine Use: Headache medicine - Recreational Drug Use Recreational Drug Use: No - Living Situation & Occupation Occupation: Employed ED ROS GENERAL - Review of Systems Review Of Systems: Comprehensive ROS is negative, except as noted in HPI. ED EXAM, GENERAL - Physical Exam Exam: See Below Free Text/Narrative:: My physical exam as in the HPI Course - Vital Signs Text/Narrative:: 12:28 AM the patient had been calm but now is vomiting uncontrollably again. 01 50 2 AM the patient feels somewhat better. She understands that she could be extremely ill debilitated or because of pancreatitis but she left AGAINST MEDICAL ADVICE and has the capacity to understand the risks he is taking. Last Recorded V/S: Last Vital Signs Temp 96.4 F L 03/14/20 23:31 Pulse 73 03/15/20 00:45 Resp 18 03/15/20 00:45 BP 113/76 03/15/20 00:45 Pulse Ox 97 03/15/20 00:45 - Orders/Labs/Meds Orders: Active Orders 24 hr Category Date Time Status Abdomen Pelvis w Cont [CT] Stat Exams 03/15/20 00:41 Taken UA W/GARRY RFLX IF INDICATED [URIN] Stat Lab 03/14/20 23:43 Ordered Sodium Chloride 0.9% [Saline Flush] Med 03/14/20 23:43 Active 10 ml FLUSH ASDIRECTED PRN Sodium Chloride 0.9% [Saline Flush] Med 03/14/20 23:43 Active 2.5 ml FLUSH ASDIRECTED PRN Saline Lock Insert [OM.PC] Stat Oth 03/14/20 23:43 Ordered Medication Orders Sodium Chloride (Saline Flush) 10 ml FLUSH ASDIRECTED PRN PRN Reason: Keep Vein Open Sodium Chloride (Saline Flush) 2.5 ml FLUSH ASDIRECTED PRN PRN Reason: Keep Vein Open Labs: Laboratory Tests 03/14/20 03/14/20 03/14/20 Range/Units 23:50 23:50 23:50 WBC 14.41 H (4.0-11.0) K/uL RBC 4.41 (4.30-5.90) M/uL Hgb 15.3 (12.0-16.0) g/dL Hct 45.2 (36.0-46.0) % MCV 102.5 H (80.0-98.0) fL MCH 34.7 H (27.0-32.0) pg MCHC 33.8 (31.0-37.0) g/dL RDW Std Deviation 48.6 (28.0-62.0) fl RDW Coeff of Tonya 13 (11.0-15.0) % Plt Count 304 (150-400) K/uL MPV 10.20 (7.40-12.00) fL Neut % (Auto) 70.3 (48.0-80.0) % Lymph % (Auto) 22.0 (16.0-40.0) % [place] % (Auto) 6.8 (0.0-15.0) % Eos % (Auto) 0.8 (0.0-7.0) % Baso % (Auto) 0.1 (0.0-1.5) % Neut # (Auto) 10.1 H (1.4-5.7) K/uL Lymph # (Auto) 3.2 H (0.6-2.4) K/uL [place] # (Auto) 1.0 H (0.0-0.8) K/uL Eos # (Auto) 0.1 (0.0-0.7) K/uL Baso # (Auto) 0.0 (0.0-0.1) K/uL Nucleated RBC % 0.0 /100WBC Nucleated RBCs # 0 K/uL Sodium 143 (136-145) mmol/L Potassium 3.7 (3.5-5.1) mmol/L Chloride 106 (98-107) mmol/L Carbon Dioxide 20.8 L (21.0-32.0) mmol/L BUN 5 L (7.0-18.0) mg/dL Creatinine 0.9 (0.6-1.0) mg/dL Est Cr Clr Drug Dosing 72.53 mL/min Estimated GFR (MDRD) > 60.0 ml/min Glucose 134 H (74-106) mg/dL Calcium 8.9 (8.5-10.1) mg/dL Total Bilirubin 0.2 (0.2-1.0) mg/dL AST 21 (15-37) IU/L ALT 33 (14-63) IU/L Alkaline Phosphatase 62 (46-116) U/L Total Protein 7.9 (6.4-8.2) g/dL Albumin 4.7 (3.4-5.0) g/dL Globulin 3.2 (2.6-4.0) g/dL Albumin/Globulin Ratio 1.5 (0.9-1.6) Lipase 518 H (73-393) U/L HCG, Qual NEGATIVE (NEG) Ethyl Alcohol 190 mg/dL Meds: Medications Generic Name Dose Route Start Last Admin Trade Name Freq PRN Reason Stop Dose Admin Sodium Chloride 10 ml 03/14/20 23:43 Saline Flush FLUSH ASDIRECTED PRN Keep Vein Open Sodium Chloride 2.5 ml 03/14/20 23:43 Saline Flush FLUSH ASDIRECTED PRN Keep Vein Open Discontinued Medications Generic Name Dose Route Start Last Admin Trade Name Freq PRN Reason Stop Dose Admin Sodium Chloride 1,000 mls @ 999 mls/hr 03/14/20 23:44 03/14/20 23:54 Normal Saline IV 03/15/20 00:44 999 mls/hr .BOLUS ONE Administration Iopamidol 100 ml 03/15/20 01:36 03/15/20 01:36 Isovue Multipack-370 (76%) IVPUSH 03/15/20 01:37 100 ml ONETIME STA Administration Lorazepam 1 mg 03/14/20 23:49 03/14/20 23:59 Ativan IVPUSH 03/14/20 23:50 1 mg ONETIME ONE Administration Metoclopramide HCl 10 mg 03/15/20 00:28 03/15/20 00:50 Reglan IVPUSH 03/15/20 00:29 10 mg ONETIME ONE Administration Ondansetron HCl 4 mg 03/14/20 23:43 03/14/20 23:54 Zofran IVPUSH 03/14/20 23:44 4 mg ONETIME ONE Administration Ondansetron HCl Confirm 03/14/20 23:45 03/15/20 00:01 Zofran Administered 03/14/20 23:46 Not Given Dose 4 mg .ROUTE .STK-MED ONE Departure - Departure Time of Disposition: 01:53 Disposition: Against Medical Advice 07 Condition: Fair Clinical Impression: Acute pancreatitis - Discharge Information Referrals: Rosi Lucas NP [Primary Care Provider] - Forms: ED Department Discharge Sepsis Event Note (ED) - Evaluation Sepsis Screening Result: No Definite Risk - Focused Exam Vital Signs: Vital Signs Temp Pulse Resp BP Pulse Ox 03/15/20 00:45 73 18 113/76 97 03/14/20 23:31 96.4 F L 76 19 100 - My Orders Last 24 Hours: My Active Orders 03/14/20 23:43 UA W/GARRY RFLX IF INDICATED [URIN] Stat Sodium Chloride 0.9% [Saline Flush] 10 ml FLUSH ASDIRECTED PRN Sodium Chloride 0.9% [Saline Flush] 2.5 ml FLUSH ASDIRECTED PRN Saline Lock Insert [OM.PC] Stat 03/15/20 00:41 Abdomen Pelvis w Cont [CT] Stat - Assessment/Plan Last 24 Hours: My Active Orders 03/14/20 23:43 UA W/GARRY RFLX IF INDICATED [URIN] Stat Sodium Chloride 0.9% [Saline Flush] 10 ml FLUSH ASDIRECTED PRN Sodium Chloride 0.9% [Saline Flush] 2.5 ml FLUSH ASDIRECTED PRN Saline Lock Insert [OM.PC] Stat 03/15/20 00:41 Abdomen Pelvis w Cont [CT] Stat
[2020-03-15 00:38] LABS: BLOOD UREA NITROGEN,BUN 5 mg/dL (7.0-18.0); CARBON DIOXIDE,CO2 20.8 mmol/L (21.0-32.0); CHLORIDE,CL 106 mmol/L (98-107); GLUCOSE RANDOM 134 mg/dL (74-106); LIPASE 518 U/L (73-393); POTASSIUM,K 3.7 mmol/L (3.5-5.1); SODIUM,NA 143 mmol/L (136-145)
[2020-03-15 00:55] VITALS: BP 113/76; PULSE 73
[2020-03-15] MEDS ORDERED: Iopamidol 755 MG/ML 500 ML Multipack Bottle IVPUSH STA (01:36)
--- NOTE | 2020-03-15 01:55 | CT ---
Indication: Abdominal pain, elevated lipase Technique: Contrast enhanced axial CT imaging through the abdomen and pelvis. 100 mL Isovue 370 contrast agent was administered intravenously. Sagittal and coronal reconstructions are provided. Comparison: None Findings: The pancreatic parenchyma demonstrates normal volume and enhancement. There is no peripancreatic edema or fluid collection. The pancreatic duct is nondilated. The liver, gallbladder, spleen, adrenal glands, and kidneys are unremarkable. The portal vein is patent. There is normal caliber of the abdominal aorta. There is no abdominal lymphadenopathy. The stomach and duodenum are unremarkable. There are no abnormally dilated small bowel loops. The appendix is noninflamed. There is no colonic wall thickening. No inflammatory changes are demonstrated in the mesentery. There is no free intraperitoneal fluid or air. The lower pelvis is incompletely included, limiting assessment of the urinary bladder and rectum. Intrauterine device is in place. The ovaries are nonenlarged. The osseous structures are unremarkable. The included lung bases are clear. Impression: No acute process is demonstrated in the abdomen and pelvis. No CT finding of pancreatitis. Please note that all CT scans at this facility use dose modulation, iterative reconstruction, and/or weight-based dosing when appropriate to reduce radiation dose to as low as reasonably achievable. Dictated by Valerio Sanders MD @ Mar 15 2020 1:53AM Signed by Dr. Valerio Sanders @ Mar 15 2020 1:53AM
== END 2020-03-15 01:55 | disposition left against medical advice (07) ==
LOC: MW.ED 23:28
DX: K85.90 Acute pancreatitis without necrosis or infection, unspecified (principal); F17.210 Nicotine dependence, cigarettes, uncomplicated; Z79.899 Other long term (current) drug therapy
CPT/HCPCS: 36415; 74177; 80053; 80307; 83690; 84703; 85025; 96361; 96374; 96375; 99284; J2060; J2405; J2765; J7030; Q9967; 99283

== ENCOUNTER 2020-03-28 10:29 | Emergency (ER) | payer MEDICAID ==
[2020-03-28] MEDS ORDERED: Haloperidol Lactate 5 MG/ML SDV IM ONE (11:02)
[2020-03-28] MEDS ORDERED: Sodium Chloride 0.9% 1,000 ML IV ONE ×2 (11:03→11:34)
[2020-03-28 11:17] LABS: BLOOD UREA NITROGEN,BUN 12 mg/dL (7.0-18.0); CARBON DIOXIDE,CO2 17.6 mmol/L (21.0-32.0); CHLORIDE,CL 104 mmol/L (98-107); GLUCOSE RANDOM 148 mg/dL (74-106); LIPASE 203 U/L (73-393); POTASSIUM,K 3.5 mmol/L (3.5-5.1); SODIUM,NA 139 mmol/L (136-145)
--- NOTE | 2020-03-28 11:25 | EDM.PDOC ---
ED HPI GENERAL MEDICAL PROBLEM - General Chief Complaint: Gastrointestinal Problem Stated Complaint: VOMITTING,BODY ACHES Time Seen by Provider: 03/28/20 10:30 Source of Information: Reports: Patient History Limitations: Reports: No Limitations - History of Present Illness INITIAL COMMENTS - FREE TEXT/NARRATIVE: HISTORY AND PHYSICAL: History of present illness: Patient is a 34-year-old female who presents to the ED today with concern of vomiting and abdominal pain that started this morning at around 8 am. Patient states that she has had these symptoms prior where she has had uncontrollable vomiting and states that she "tries to manage at home "but states that today she could not do this anymore. Patient states she was seen in the emergency room for this prior and states that she was told it could be her gallbladder and states that she did not follow-up for this following that visit. Patient states she does smoke a pack of cigarettes a day and "smokes a few bowls "of marijuana daily. Patient denies any other health history and states that she does have an IUD so does not believe she is . Denies any other symptoms or concerns. Patient denies fever, chills, chest pain, shortness of breath, or cough. Denies headache, neck stiff ness, change in vision, syncope, or near syncope. Denies diarrhea, constipation, or dysuria. Has not noted any blood in urine or stool. Review of systems: As per history of present illness and below otherwise all systems reviewed and negative. Past medical history: As per history of present illness and as reviewed below otherwise noncontributory. Surgical history: As per history of present illness and as reviewed below otherwise noncontributory. Social history: See social history for further information Family history: As per history of present illness and as reviewed below otherwise noncontributory. Physical exam: General: Patient is alert, oriented, and in no acute distress. Patient actively dry heaving on exam, does appear uncomfortable. HEENT: Atraumatic, normocephalic, pupils equal and reactive bilaterally, negative for conjunctival pallor or scleral icterus, mucous membranes moist, throat clear, neck supple, nontender, trachea midline. No drooling or trismus noted. No meningeal signs. No hot potato voice noted. Lungs: Patient speaking clearly without breathlessness, no wheezing or stridor, no accessory muscle use or respiratory distress. 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 Heart: Auscultation deferred due to current COV-ID 19 outbreak. Abdomen: Exam of abdomen limited to vomiting. Otherwise, soft, tenderness of genrealized abdomen, nondistended. Negative for masses or hepatosplenomegaly. Negative for costovertebral tenderness. Pelvis: Stable nontender. Genitourinary: Deferred. Rectal: Deferred. Skin: Intact, warm, dry. No lesions or rashes noted. Extremities: Atraumatic, negative for cords or calf pain. Neurovascular unremarkable. Neuro: Awake, alert, oriented. Cranial nerves II through XII unremarkable. Cerebellum unremarkable. Motor and sensory unremarkable throughout. Exam nonfocal. Notes: Dr. Vee verbally involved in patient care. Patient vomiting and uncomfortable on initial exam. Exam of abdomen at this time is limited due to patient vomiting but will continue to reassess symptoms. Following therapeutics, vomiting resolved and patient more comfortable on exam. She does have some mild-moderate tenderness of the periumbilical abdomen without guarding, negative rebound. Labwork shows elevated lactate with leukocytosis. Will do abd/pelvic w cont. Patient adamant about leaving ED prior to completion of radiology reading of CT scan. However, agrees to await for CT scan results after through discussion of possible concerns based on lab work and exam. The radiologist, Dr. Owen Alvarez MD did call and discussed patient's CT scan. He remarked that he is concerned for colitis, possible enteritis, and a small bowel intussusception that he states is possibly transient as he does not see a obstruction or mass. Radiologist, Dr. Alvarez states that he cannot rule out ischemic cause for colitis completely due to a non specific finding with the colitis. I did discuss this patient wit Dr. Casanova, general surgery, who states that patient needs to be transferred to a higher level of care. While discussing case with radiologist, patient adamantly requesting to leave ED. I did go and have a thorough conversation with patient regarding the need for transfer and higher level of care based off of concern for colitis, intussusception, and r/o ischemic process and per Dr. Casanova, but patient adamantly declines requesting discharge from the ED. All risks vs benefits discussed with patient, including the risk of if discharged to home, and expresses understanding and requesting discharge. Signs and symptoms that would prompt return to the ED thoroughly discussed with patient. I did ask if she was willing to stay to receive blood cultures and a dose of IV antibiotics in the ED today but patient declines and requests removal of IV immediately. I did fill out an outpatient lab form for patient to receive stool cultures but she did not wait for me to have this filled out prior to leaving ED. I did send in RX for antibiotics. Patient did sign AMA form prior to leaving the ED Diagnostics: CBC, CMP, UA, Lipase, Uhcg, UDS, Lactate, Abd/Pelvic CT w cont (left prior to blood cultures, or stool study) Therapeutics: Haldol 5mg IV, NS (left prior to IV antibiotics) Prescription: Ciprofloxacin, Flagyl Impression: Colitis Small bowel intussusception Left AGAINST MEDICAL ADVICE Plan: Left AGAINST MEDICAL ADVICE Definitive disposition and diagnosis as appropriate pending reevaluation and review of above. Abdominal Pain Score (Numeric/FACES): 8 - Related Data Allergies Allergy/AdvReac Type Severity Reaction Status Date / Time hydrocodone Allergy Facial Verified 03/28/20 10:35 Swelling Home Meds: Home Meds Ciprofloxacin [Ciprofloxacin HCl] 500 mg PO BID 10 Days #20 tab 03/28/20 [Rx] Omeprazole 20 mg PO ONETIME 03/28/20 [History] Sertraline [Zoloft] 50 mg PO DAILY 03/28/20 [History] metroNIDAZOLE [Flagyl] 500 mg PO TID 10 Days #30 tab 03/28/20 [Rx] Past Medical History - Past Health History Medical/Surgical History: Denies Medical/Surgical History HEENT History: Reports: None Cardiovascular History: Reports: None Respiratory History: Reports: None Gastrointestinal History: Reports: Pancreatitis Genitourinary History: Reports: None CAR BLOCKER History: Reports: Other CAR BLOCKER History: 4 pregnancies Musculoskeletal History: Reports: None Neurological History: Reports: None Psychiatric History: Reports: Anxiety, Depression Other Psychiatric History: patient states in the past. Endocrine/Metabolic History: Reports: None Insulin Pump Model and Account Installation Specialist: None Hematologic History: Reports: None Immunologic History: Reports: None Oncologic (Cancer) History: Reports: None Dermatologic History: Reports: None - Infectious Disease History Infectious Disease History: Reports: None - Past Surgical History Head Surgeries/Procedures: Reports: None HEENT Surgical History: Reports: None Cardiovascular Surgical History: Reports: None Respiratory Surgical History: Reports: None GI Surgical History: Reports: None Female Surgical History: Reports: None Endocrine Surgical History: Reports: None Neurological Surgical History: Reports: None Musculoskeletal Surgical History: Reports: None Oncologic Surgical History: Reports: None Dermatological Surgical History: Reports: None Social & Family History - Family History Family Medical History: Noncontributory - Tobacco Use Smoking Status *Q: Current Every Day Smoker Years of Tobacco use: 16 Packs/Tins Daily: 1 Used Tobacco, but Quit: No Second Hand Smoke Exposure: Yes - Caffeine Use Caffeine Use: Reports: Tea Other Caffeine Use: Headache medicine - Recreational Drug Use Recreational Drug Use: Yes Drug Use in Last 12 Months: Yes Recreational Drug Type: Reports: Marijuana/Hashish Recreational Drug Use Frequency: Daily Recreational Drug Last Use: Couple bowls a day - Living Situation & Occupation Occupation: Employed ED ROS GENERAL - Review of Systems Review Of Systems: Comprehensive ROS is negative, except as noted in HPI. ED EXAM, GENERAL - Physical Exam Exam: See Below (see dictation) Course - Vital Signs Last Recorded V/S: Last Vital Signs Temp 96.2 F L 03/28/20 13:17 Pulse 55 L 03/28/20 13:17 Resp 16 03/28/20 13:17 BP 114/72 03/28/20 13:17 Pulse Ox 100 03/28/20 13:17 - Orders/Labs/Meds Labs: Laboratory Tests 03/28/20 03/28/20 03/28/20 Range/Units 10:38 10:38 10:38 WBC 17.64 H (4.0-11.0) K/uL RBC 4.33 (4.30-5.90) M/uL Hgb 14.9 (12.0-16.0) g/dL Hct 43.8 (36.0-46.0) % MCV 101.2 H (80.0-98.0) fL MCH 34.4 H (27.0-32.0) pg MCHC 34.0 (31.0-37.0) g/dL RDW Std Deviation 45.4 (28.0-62.0) fl RDW Coeff of Tonya 12 (11.0-15.0) % Plt Count 250 (150-400) K/uL MPV 10.90 (7.40-12.00) fL Neut % (Auto) 86.0 H (48.0-80.0) % Lymph % (Auto) 7.8 L (16.0-40.0) % [place] % (Auto) 5.7 (0.0-15.0) % Eos % (Auto) 0.4 (0.0-7.0) % Baso % (Auto) 0.1 (0.0-1.5) % Neut # (Auto) 15.2 H (1.4-5.7) K/uL Lymph # (Auto) 1.4 (0.6-2.4) K/uL [place] # (Auto) 1.0 H (0.0-0.8) K/uL Eos # (Auto) 0.1 (0.0-0.7) K/uL Baso # (Auto) 0.0 (0.0-0.1) K/uL Nucleated RBC % 0.0 /100WBC Nucleated RBCs # 0 K/uL Lactate 5.5 H* (0.20-2.00) mmol/L Sodium 139 (136-145) mmol/L Potassium 3.5 (3.5-5.1) mmol/L Chloride 104 (98-107) mmol/L Carbon Dioxide 17.6 L (21.0-32.0) mmol/L BUN 12 (7.0-18.0) mg/dL Creatinine 1.0 (0.6-1.0) mg/dL Est Cr Clr Drug Dosing 65.28 mL/min Estimated GFR (MDRD) > 60.0 ml/min Glucose 148 H (74-106) mg/dL Calcium 9.6 (8.5-10.1) mg/dL Total Bilirubin 0.8 (0.2-1.0) mg/dL AST 19 (15-37) IU/L ALT 31 (14-63) IU/L Alkaline Phosphatase 58 (46-116) U/L Total Protein 7.4 (6.4-8.2) g/dL Albumin 4.7 (3.4-5.0) g/dL Globulin 2.7 (2.6-4.0) g/dL Albumin/Globulin Ratio 1.7 H (0.9-1.6) Lipase 203 (73-393) U/L Urine Color Urine Appearance Urine pH (5.0-8.0) Ur Specific [place] (1.001-1.035) Urine Protein (NEGATIVE) mg/dL Urine Glucose (UA) (NEGATIVE) mg/dL Urine Ketones (NEGATIVE) mg/dL Urine Occult Blood (NEGATIVE) Urine Nitrite (NEGATIVE) Urine Bilirubin (NEGATIVE) Urine Urobilinogen (<2.0) EU/dL Ur Leukocyte Esterase (NEGATIVE) Urine RBC (0-2/HPF) Urine WBC (0-5/HPF) Ur Epithelial Cells (NONE-FEW) Urine Bacteria (NEGATIVE) Urine Mucus (NONE-MOD) Urine HCG, Qual (NEGATIVE) Urine Opiates Screen (NEGATIVE) Ur Oxycodone Screen (NEGATIVE) Urine Methadone Screen (NEGATIVE) Ur Barbiturates Screen (NEGATIVE) Ur Phencyclidine Scrn (NEGATIVE) Ur Amphetamine Screen (NEGATIVE) U Methamphetamines Scrn (NEGATIVE) U Benzodiazepines Scrn (NEGATIVE) U Cocaine Metab Screen (NEGATIVE) U Marijuana (THC) Screen (NEGATIVE) 03/28/20 03/28/20 03/28/20 Range/Units 10:50 10:50 10:50 WBC (4.0-11.0) K/uL RBC (4.30-5.90) M/uL Hgb (12.0-16.0) g/dL Hct (36.0-46.0) % MCV (80.0-98.0) fL MCH (27.0-32.0) pg MCHC (31.0-37.0) g/dL RDW Std Deviation (28.0-62.0) fl RDW Coeff of Tonya (11.0-15.0) % Plt Count (150-400) K/uL MPV (7.40-12.00) fL Neut % (Auto) (48.0-80.0) % Lymph % (Auto) (16.0-40.0) % [place] % (Auto) (0.0-15.0) % Eos % (Auto) (0.0-7.0) % Baso % (Auto) (0.0-1.5) % Neut # (Auto) (1.4-5.7) K/uL Lymph # (Auto) (0.6-2.4) K/uL [place] # (Auto) (0.0-0.8) K/uL Eos # (Auto) (0.0-0.7) K/uL Baso # (Auto) (0.0-0.1) K/uL Nucleated RBC % /100WBC Nucleated RBCs # K/uL Lactate (0.20-2.00) mmol/L Sodium (136-145) mmol/L Potassium (3.5-5.1) mmol/L Chloride (98-107) mmol/L Carbon Dioxide (21.0-32.0) mmol/L BUN (7.0-18.0) mg/dL Creatinine (0.6-1.0) mg/dL Est Cr Clr Drug Dosing mL/min Estimated GFR (MDRD) ml/min Glucose (74-106) mg/dL Calcium (8.5-10.1) mg/dL Total Bilirubin (0.2-1.0) mg/dL AST (15-37) IU/L ALT (14-63) IU/L Alkaline Phosphatase (46-116) U/L Total Protein (6.4-8.2) g/dL Albumin (3.4-5.0) g/dL Globulin (2.6-4.0) g/dL Albumin/Globulin Ratio (0.9-1.6) Lipase (73-393) U/L Urine Color YELLOW Urine Appearance CLEAR Urine pH 6.5 (5.0-8.0) Ur Specific [place] 1.020 (1.001-1.035) Urine Protein NEGATIVE (NEGATIVE) mg/dL Urine Glucose (UA) NEGATIVE (NEGATIVE) mg/dL Urine Ketones 15 H (NEGATIVE) mg/dL Urine Occult Blood TRACE-INTACT H (NEGATIVE) Urine Nitrite NEGATIVE (NEGATIVE) Urine Bilirubin NEGATIVE (NEGATIVE) Urine Urobilinogen 0.2 (<2.0) EU/dL Ur Leukocyte Esterase NEGATIVE (NEGATIVE) Urine RBC 0-2 (0-2/HPF) Urine WBC 0-1 (0-5/HPF) Ur Epithelial Cells RARE (NONE-FEW) Urine Bacteria RARE (NEGATIVE) Urine Mucus LIGHT (NONE-MOD) Urine HCG, Qual NEGATIVE (NEGATIVE) Urine Opiates Screen NEGATIVE (NEGATIVE) Ur Oxycodone Screen NEGATIVE (NEGATIVE) Urine Methadone Screen NEGATIVE (NEGATIVE) Ur Barbiturates Screen NEGATIVE (NEGATIVE) Ur Phencyclidine Scrn NEGATIVE (NEGATIVE) Ur Amphetamine Screen NEGATIVE (NEGATIVE) U Methamphetamines Scrn NEGATIVE (NEGATIVE) U Benzodiazepines Scrn NEGATIVE (NEGATIVE) U Cocaine Metab Screen NEGATIVE (NEGATIVE) U Marijuana (THC) Screen POSITIVE (NEGATIVE) 03/28/20 Range/Units 12:55 WBC (4.0-11.0) K/uL RBC (4.30-5.90) M/uL Hgb (12.0-16.0) g/dL Hct (36.0-46.0) % MCV (80.0-98.0) fL MCH (27.0-32.0) pg MCHC (31.0-37.0) g/dL RDW Std Deviation (28.0-62.0) fl RDW Coeff of Tonya (11.0-15.0) % Plt Count (150-400) K/uL MPV (7.40-12.00) fL Neut % (Auto) (48.0-80.0) % Lymph % (Auto) (16.0-40.0) % [place] % (Auto) (0.0-15.0) % Eos % (Auto) (0.0-7.0) % Baso % (Auto) (0.0-1.5) % Neut # (Auto) (1.4-5.7) K/uL Lymph # (Auto) (0.6-2.4) K/uL [place] # (Auto) (0.0-0.8) K/uL Eos # (Auto) (0.0-0.7) K/uL Baso # (Auto) (0.0-0.1) K/uL Nucleated RBC % /100WBC Nucleated RBCs # K/uL Lactate 2.0 (0.20-2.00) mmol/L Sodium (136-145) mmol/L Potassium (3.5-5.1) mmol/L Chloride (98-107) mmol/L Carbon Dioxide (21.0-32.0) mmol/L BUN (7.0-18.0) mg/dL Creatinine (0.6-1.0) mg/dL Est Cr Clr Drug Dosing mL/min Estimated GFR (MDRD) ml/min Glucose (74-106) mg/dL Calcium (8.5-10.1) mg/dL Total Bilirubin (0.2-1.0) mg/dL AST (15-37) IU/L ALT (14-63) IU/L Alkaline Phosphatase (46-116) U/L Total Protein (6.4-8.2) g/dL Albumin (3.4-5.0) g/dL Globulin (2.6-4.0) g/dL Albumin/Globulin Ratio (0.9-1.6) Lipase (73-393) U/L Urine Color Urine Appearance Urine pH (5.0-8.0) Ur Specific [place] (1.001-1.035) Urine Protein (NEGATIVE) mg/dL Urine Glucose (UA) (NEGATIVE) mg/dL Urine Ketones (NEGATIVE) mg/dL Urine Occult Blood (NEGATIVE) Urine Nitrite (NEGATIVE) Urine Bilirubin (NEGATIVE) Urine Urobilinogen (<2.0) EU/dL Ur Leukocyte Esterase (NEGATIVE) Urine RBC (0-2/HPF) Urine WBC (0-5/HPF) Ur Epithelial Cells (NONE-FEW) Urine Bacteria (NEGATIVE) Urine Mucus (NONE-MOD) Urine HCG, Qual (NEGATIVE) Urine Opiates Screen (NEGATIVE) Ur Oxycodone Screen (NEGATIVE) Urine Methadone Screen (NEGATIVE) Ur Barbiturates Screen (NEGATIVE) Ur Phencyclidine Scrn (NEGATIVE) Ur Amphetamine Screen (NEGATIVE) U Methamphetamines Scrn (NEGATIVE) U Benzodiazepines Scrn (NEGATIVE) U Cocaine Metab Screen (NEGATIVE) U Marijuana (THC) Screen (NEGATIVE) Meds: Medications Discontinued Medications Generic Name Dose Route Start Last Admin Trade Name Freq PRN Reason Stop Dose Admin Haloperidol Lactate 5 mg 03/28/20 11:02 03/28/20 11:18 Haldol IM 03/28/20 11:03 5 mg ONETIME ONE Administration Sodium Chloride 1,000 mls @ 999 mls/hr 03/28/20 11:03 03/28/20 11:18 Normal Saline IV 03/28/20 12:03 999 mls/hr BOLUS ONE Administration Sodium Chloride 1,000 mls @ 600 mls/hr 03/28/20 11:34 03/28/20 11:42 Normal Saline IV 03/28/20 13:13 600 mls/hr STAT ONE Administration Iopamidol 100 ml 03/28/20 12:11 03/28/20 12:11 Isovue Multipack-370 (76%) IVPUSH 03/28/20 12:12 100 ml ONETIME ONE Administration Departure - Departure Time of Disposition: 14:18 Disposition: Against Medical Advice 07 Clinical Impression: Colitis, Intussusception, Left against medical advice - Discharge Information Prescriptions: Ciprofloxacin [Ciprofloxacin HCl] 500 mg PO BID 10 Days #20 tab metroNIDAZOLE [Flagyl] 500 mg PO TID 10 Days #30 tab Referrals: Bill Devine MD [Primary Care Provider] - Forms: ED Department Discharge Additional Instructions: Patient did not receive discharge instructions prior to leaving AGAINST MEDICAL ADVICE as she did not wait for instructions Sepsis Event Note (ED) - Evaluation Sepsis Screening Result: No Definite Risk - Focused Exam Vital Signs: Vital Signs Temp Pulse Resp BP Pulse Ox 03/28/20 13:17 96.2 F L 55 L 16 114/72 100 03/28/20 12:38 62 15 114/72 99 03/28/20 10:37 98.2 F 64 24 H 107/69 99
[2020-03-28] MEDS ORDERED: Iopamidol 755 MG/ML 500 ML Multipack Bottle IVPUSH ONE (12:11)
[2020-03-28 12:40] VITALS: BP 114/72
--- NOTE | 2020-03-28 12:49 | CT ---
INDICATION: Abdominal pain with leukocytosis and elevated lactate. COMPARISON: March 15, 2020 TECHNIQUE: CT examination of the abdomen and pelvis was performed following the uneventful intravenous administration of 100 cc of Isovue 3 7. Thin section axial images were obtained from the lung bases through the pubic symphysis. Oral contrast was not administered. Please note that all CT scans at this facility use dose modulation, iterative reconstruction, and/or weight-based dosing when appropriate to reduce radiation dose to as low as reasonably achievable. FINDINGS: LUNG BASES: The lung bases as visualized appear normal. The heart size is normal at the lung bases. LIVER/BILIARY SYSTEM:The liver is normal in size and configuration. There is no focal mass and there is no intra- or extra hepatic biliary ductal dilatation.The gall bladder appears normal. ADRENALS: Normal KIDNEYS, URETERS and BLADDER:The kidneys appear normal. No visible mass, calculus or hydronephrosis. The ureters and bladder as visualized appear normal. SPLEEN:Normal appearance. PANCREAS: Appears normal. RETROPERITONEUM and MESENTERY: There is no mass, adenopathy or aortic aneurysm. GASTROINTESTINAL SYSTEM: There is prominence of small bowel loops and thickening of the colonic wall especially in the cecum and ascending colon. The colonic findings probably represent colitis. The small bowel findings are likely related to enteritis. In the right flank, there is a small bowel-small bowel intussusception without visible mass or obstruction. These are generally considered transient findings of doubtful significance without visible mass or obstruction. Given the general colitis and enteritis pattern and elevated lactate, an ischemic etiology for this should be considered clinically. PELVIS: Mild free fluid in the pelvis not above that generally seen physiologically appear. OSSEOUS STRUCTURES and ABDOMINAL WALL: There is an age-appropriate appearance of the osseous structures.No significant abdominal wall defect. OTHER: No free fluid or free air. IMPRESSION: 1. There are findings suggesting colitis especially of the cecum and ascending colon. 2. Prominent small-bowel without clear wall thickening or obstruction probably due to enteritis. 3. Incidental small bowel-small bowel intussusception without visible mass or obstruction. These findings are generally transient and not clinically significant. 4. Given the elevated lactate, an ischemic etiology for the colitis/enteritis pattern should be considered as appropriate clinically 5. I discussed the above findings with Reji Downs at 12:40 p.m. on March 28, [address] Please note that all CT scans at this facility use dose modulation, iterative reconstruction, and/or weight-based dosing when appropriate to reduce radiation dose to as low as reasonably achievable. Dictated by Owen Alvarez MD @ Mar 28 2020 12:36PM Signed by Dr. Owen Alvarez @ Mar 28 2020 12:47PM
[2020-03-28 13:18] VITALS: PULSE 55
== END 2020-03-28 13:07 | disposition left against medical advice (07) ==
LOC: MW.ED 10:29
DX: K56.1 Intussusception (principal); K52.9 Noninfective gastroenteritis and colitis, unspecified; F41.9 Anxiety disorder, unspecified; F32.9 Major depressive disorder, single episode, unspecified; F17.210 Nicotine dependence, cigarettes, uncomplicated; Z88.5 Allergy status to narcotic agent; Z79.899 Other long term (current) drug therapy
CPT/HCPCS: 36415; 74177; 80053; 80305; 81001; 81025; 83605; 83690; 85025; 96360; 96361; 96372; 99284; J1630; J7030; Q9967; 99283

== ENCOUNTER 2020-09-26 20:57 | Emergency (ER) | payer MEDICAID ==
[2020-09-26 21:07] VITALS: BP 136/77; PULSE 90
--- NOTE | 2020-09-26 21:34 | EDM.PDOC ---
ED HPI GENERAL MEDICAL PROBLEM - General Chief Complaint: General Stated Complaint: MEDICAL CLEARANCE Time Seen by Provider: 09/26/20 20:59 Source of Information: Reports: Patient, Police History Limitations: Reports: No Limitations - History of Present Illness INITIAL COMMENTS - FREE TEXT/NARRATIVE: 34-year-old female was brought in by police for medical clearance prior to inc arceration. Patient has no physical complaints. Patient denies fever, headache, nausea, vomiting, diarrhea, chest pain, shortness of breath, abdominal pain. ROS: A 10-point review of systems, other than pertinent positives and negatives as stated per HPI, is otherwise negative Past medical history: No additional pertinent history Surgical history: No additional pertinent history Social history: No additional pertinent history Family history: No additional pertinent history PHYSICAL EXAM General: AOx4, GCS = 15, No distress HEENT: dry mucous membrane Neck: supple, no meningismus, no Kernig or Brudzinski Cardiac: S1S2 RRR Respiratory: CTAB, no crackles or rales, no wheezing Abdomen: Soft, nontender, no rebound or guarding, nondistended, no pulsatile mass. Back: nontender Musculoskeletal: NVI distally, no deformity Neuro: No focal deficits, CN 2 - 12 WNL. MEDICAL DECISION MAKING: Patient has no physical complaints today, patient exhibits normal vital signs, I do not suspect organic etiology warranting additional blood work or imaging studies. Patient is medically cleared to be discharged under police custody. - Related Data Allergies Allergy/AdvReac Type Severity Reaction Status Date / Time hydrocodone Allergy Facial Verified 09/26/20 21:05 Swelling Home Meds: Home Meds Ciprofloxacin [Ciprofloxacin HCl] 500 mg PO BID 10 Days #20 tab 03/28/20 [Rx] Omeprazole 20 mg PO ONETIME 03/28/20 [History] Sertraline [Zoloft] 50 mg PO DAILY 03/28/20 [History] metroNIDAZOLE [Flagyl] 500 mg PO TID 10 Days #30 tab 03/28/20 [Rx] Past Medical History - Past Health History Medical/Surgical History: Denies Medical/Surgical History HEENT History: Reports: None Cardiovascular History: Reports: None Respiratory History: Reports: None Gastrointestinal History: Reports: Pancreatitis Genitourinary History: Reports: None 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 Endocrine/Metabolic History: Reports: None Insulin Pump Model and Biomedical Repair Technician: None Hematologic History: Reports: None Immunologic History: Reports: None Oncologic (Cancer) History: Reports: None Dermatologic History: Reports: None - Infectious Disease History Infectious Disease History: Reports: None - Past Surgical History Head Surgeries/Procedures: Reports: None HEENT Surgical History: Reports: None Cardiovascular Surgical History: Reports: None Respiratory Surgical History: Reports: None GI Surgical History: Reports: None Female Surgical History: Reports: None Endocrine Surgical History: Reports: None Neurological Surgical History: Reports: None Musculoskeletal Surgical History: Reports: None Oncologic Surgical History: Reports: None Dermatological Surgical History: Reports: None Social & Family History - Family History Family Medical History: No Pertinent Family History - Caffeine Use Caffeine Use: Reports: Tea Other Caffeine Use: Headache medicine - Living Situation & Occupation Occupation: Employed ED ROS GENERAL - Review of Systems Review Of Systems: See Below (see dictation) ED EXAM, GENERAL - Physical Exam Exam: See Below (see dictation) Course - Vital Signs Last Recorded V/S: Last Vital Signs Temp 97.9 F 09/26/20 21:05 Pulse 90 09/26/20 21:05 Resp 18 09/26/20 21:05 BP 136/77 09/26/20 21:05 Pulse Ox 98 09/26/20 21:05 Departure - Departure Time of Disposition: 21:33 Disposition: DC/Tfer to Court of Law En 21 Clinical Impression: Encounter for medical screening examination - Discharge Information *PRESCRIPTION DRUG MONITORING PROGRAM REVIEWED*: Not Applicable Instructions: Medical Screening Exam Referrals: PCP,None [Primary Care Provider] - Additional Instructions: The need for follow-up, as well as the timing and circumstances, are variable depending upon the specifics of your emergency department visit. If you don't have a primary care physician on staff, we will provide you with a referral. We always advise you to contact your personal physician following an emergency department visit to inform them of the circumstance of the visit and for follow-up with them and/or the need for any referrals to a consulting specialist. The emergency department will also refer you to a specialist when appropriate. This referral assures that you have the opportunity for follow-up care with a specialist. All of these measure are taken in an effort to provide you with optimal care, which includes your follow-up. Under all circumstances we always encourage you to contact your private physician who remains a resource for coordinating your care. When calling for follow-up care, please make the office aware that this follow-up is from your recent emergency room visit. If for any reason you are refused follow-up, please contact the [facility] Emergency Department at and asked to speak to the emergency department charge nurse. If you do not have a primary care doctor, please follow up with the clinics below within 3-5 days. [facility] - Primary Care [address] [place] [id number] [facility] [address] [place] [id number] Sepsis Event Note (ED) - Evaluation Sepsis Screening Result: No Definite Risk - Focused Exam Vital Signs: Vital Signs Temp Pulse Resp BP Pulse Ox 09/26/20 21:05 97.9 F 90 18 136/77 98
== END 2020-09-26 21:35 ==
LOC: MW.ED 20:57
DX: Z02.89 Encounter for other administrative examinations (principal); Z88.5 Allergy status to narcotic agent; Z79.899 Other long term (current) drug therapy
CPT/HCPCS: 99282; 99283

== ENCOUNTER 2021-02-11 13:32 | Emergency (ER) | payer MEDICAID ==
[2021-02-11] MEDS ORDERED: Sodium Chloride 0.9% 1,000 ML IV ONE ×2 (13:37→14:33)
[2021-02-11] MEDS ORDERED: Haloperidol Lactate 5 MG/ML SDV IM ONE (13:37)
[2021-02-11] MEDS ORDERED: diphenhydrAMINE 50 MG/ML SDV IVPUSH ONE (13:37)
--- NOTE | 2021-02-11 13:42 | EDM.PDOC ---
ED HPI GENERAL MEDICAL PROBLEM - General Chief Complaint: Abdominal Pain Stated Complaint: ANXIETY Time Seen by Provider: 02/11/21 13:37 Source of Information: Reports: Patient History Limitations: Reports: No Limitations - History of Present Illness INITIAL COMMENTS - FREE TEXT/NARRATIVE: Patient is a 35-year-old female with a history of recurrent abdominal pain. Patient's had multiple work-ups and goes to [facility] for her care. They have found no source of her pain a think it may be related to pancreatitis. Patient states that she last had intense pain at this back in October. She denies any events that she can think of it triggered the symptoms. She tried her home meds did not work which is omeprazole and hydroxyzine. She is have vomiting not been keeping them down. Her stomach feels crampy. She has no other associated symptoms. Treatments SOLUTION DESIGN ENGINEER: Reports: IV/IO abdomen Pain Score (Numeric/FACES): 8 - Related Data Allergies Allergy/AdvReac Type Severity Reaction Status Date / Time hydrocodone Allergy Facial Verified 02/11/21 13:35 Swelling Home Meds: Home Meds Omeprazole 20 mg PO ONETIME 03/28/20 [History] Sertraline [Zoloft] 50 mg PO DAILY 03/28/20 [History] hydrOXYzine HCL [hydrOXYzine] 25 mg PO BID 02/11/21 [History] Past Medical History - Past Health History Medical/Surgical History: Denies Medical/Surgical History HEENT History: Reports: None Cardiovascular History: Reports: None Respiratory History: Reports: None Gastrointestinal History: Reports: Pancreatitis Genitourinary History: Reports: None LITHOGRAPHIC ARTIST History: Reports: Other LITHOGRAPHIC ARTIST History: 4 pregnancies Musculoskeletal History: Reports: None Neurological History: Reports: None Psychiatric History: Reports: Anxiety, Depression Other Psychiatric History: patient states in the past. Endocrine/Metabolic History: Reports: None Insulin Pump Model and Teacher Industrial Arts: None Hematologic History: Reports: None Immunologic History: Reports: None Oncologic (Cancer) History: Reports: None Dermatologic History: Reports: None - Infectious Disease History Infectious Disease History: Reports: None - Past Surgical History Head Surgeries/Procedures: Reports: None HEENT Surgical History: Reports: None Cardiovascular Surgical History: Reports: None Respiratory Surgical History: Reports: None GI Surgical History: Reports: None Female Surgical History: Reports: None Endocrine Surgical History: Reports: None Neurological Surgical History: Reports: None Musculoskeletal Surgical History: Reports: None Oncologic Surgical History: Reports: None Dermatological Surgical History: Reports: None Social & Family History - Family History Family Medical History: No Pertinent Family History - Tobacco Use Tobacco Use Status *Q: Current Every Day Tobacco User Years of Tobacco use: 15 Packs/Tins Daily: 1 - Caffeine Use Caffeine Use: Reports: None Other Caffeine Use: Headache medicine - Recreational Drug Use Recreational Drug Use: Yes Recreational Drug Type: Reports: Marijuana/Hashish Recreational Drug Use Frequency: Daily - Living Situation & Occupation Occupation: Employed ED ROS GENERAL - Review of Systems Review Of Systems: See Below Constitutional: Reports: No Symptoms HEENT: Reports: No Symptoms Respiratory: Reports: No Symptoms Cardiovascular: Reports: No Symptoms Endocrine: Reports: No Symptoms GI/Abdominal: Reports: Abdominal Pain : Reports: No Symptoms Musculoskeletal: Reports: No Symptoms Skin: Reports: No Symptoms Neurological: Reports: No Symptoms Psychiatric: Reports: No Symptoms Hematologic/Lymphatic: Reports: No Symptoms Immunologic: Reports: No Symptoms ED EXAM, GI/ABD - Physical Exam Exam: See Below Exam Limited By: No Limitations General Appearance: Alert, WD/WN, Mild Distress Eyes: Bilateral: EOMI Head: Atraumatic Respiratory/Chest: No Respiratory Distress, Lungs Clear, Normal Breath Sounds Cardiovascular: Normal Peripheral Pulses, Regular Rate, Rhythm GI/Abdominal Exam: Normal Bowel Sounds, Soft, Non-Tender Back Exam: Normal Inspection Extremities: Normal Inspection Neurological: Alert, Oriented, Normal Cognition, Normal Gait Course - Vital Signs Last Recorded V/S: Last Vital Signs Temp 97.2 F 02/11/21 13:32 Pulse 74 02/11/21 15:53 Resp 17 02/11/21 15:53 BP 104/56 L 02/11/21 15:53 Pulse Ox 98 02/11/21 15:53 - Orders/Labs/Meds Labs: Laboratory Tests 02/11/21 02/11/21 02/11/21 Range/Units 13:38 13:38 13:38 WBC 12.58 H (4.0-11.0) K/uL RBC 4.12 L (4.30-5.90) M/uL Hgb 14.3 (12.0-16.0) g/dL Hct 40.7 (36.0-46.0) % MCV 98.8 H (80.0-98.0) fL MCH 34.7 H (27.0-32.0) pg MCHC 35.1 (31.0-37.0) g/dL RDW Std Deviation 46.9 (28.0-62.0) fl RDW Coeff of Tonya 13 (11.0-15.0) % Plt Count 265 (150-400) K/uL MPV 10.10 (7.40-12.00) fL Neut % (Auto) 89.6 H (48.0-80.0) % Lymph % (Auto) 5.8 L (16.0-40.0) % Pennington % (Auto) 4.5 (0.0-15.0) % Eos % (Auto) 0.0 (0.0-7.0) % Baso % (Auto) 0.1 (0.0-1.5) % Neut # (Auto) 11.3 H (1.4-5.7) K/uL Lymph # (Auto) 0.7 (0.6-2.4) K/uL Pennington # (Auto) 0.6 (0.0-0.8) K/uL Eos # (Auto) 0.0 (0.0-0.7) K/uL Baso # (Auto) 0.0 (0.0-0.1) K/uL Nucleated RBC % 0.0 /100WBC Nucleated RBCs # 0 K/uL Sodium 138 (136-145) mmol/L Potassium 4.0 (3.5-5.1) mmol/L Chloride 103 (98-107) mmol/L Carbon Dioxide 18.3 L (21.0-32.0) mmol/L BUN 9 (7.0-18.0) mg/dL Creatinine 0.8 (0.6-1.0) mg/dL Est Cr Clr Drug Dosing 70.28 mL/min Estimated GFR (MDRD) > 60.0 ml/min Glucose 144 H (74-106) mg/dL Calcium 9.4 (8.5-10.1) mg/dL Phosphorus 1.2 L (2.6-4.7) mg/dL Magnesium 1.7 L (1.8-2.4) mg/dL Total Bilirubin 1.1 H (0.2-1.0) mg/dL AST 26 (15-37) IU/L ALT 37 (14-63) IU/L Alkaline Phosphatase 66 (46-116) U/L Total Protein 7.2 (6.4-8.2) g/dL Albumin 4.4 (3.4-5.0) g/dL Globulin 2.8 (2.6-4.0) g/dL Albumin/Globulin Ratio 1.6 (0.9-1.6) Lipase 202 (73-393) U/L HCG, Qual NEGATIVE (NEG) Meds: Medications Discontinued Medications Generic Name Dose Route Start Last Admin Trade Name Freq PRN Reason Stop Dose Admin Diphenhydramine HCl 12.5 mg 02/11/21 13:37 02/11/21 13:47 Diphenhydramine 50 Mg/Ml Sdv IVPUSH 02/11/21 13:38 12.5 mg ONETIME ONE Administration Haloperidol Lactate 5 mg 02/11/21 13:37 02/11/21 13:48 Haloperidol Lactate 5 Mg/Ml Sdv IM 02/11/21 13:38 5 mg ONETIME ONE Administration Sodium Chloride 1,000 mls @ 999 mls/hr 02/11/21 13:37 02/11/21 13:46 Normal Saline IV 02/11/21 14:37 999 mls/hr .BOLUS ONE Administration Sodium Chloride 1,000 mls @ 1,000 mls/hr 02/11/21 14:33 02/11/21 14:37 Normal Saline IV 02/11/21 15:32 1,000 mls/hr .Bolus ONE Administration Lorazepam 2 mg 02/11/21 14:41 02/11/21 14:45 Lorazepam 2 Mg/Ml Sdv IVPUSH 02/11/21 14:42 2 mg ONETIME ONE Administration - Re-Assessments/Exams Free Text/Narrative Re-Assessment/Exam: 02/11/21 15:30 Patient was given Haldol and Benadryl symptoms slightly improved but still has some abdominal cramps patient was given Benadryl now resting comfortably. Patient tolerating p.o. will be discharged slowly. Patient to have low bicarb was given 2 L of normal saline. Departure - Departure Time of Disposition: 19:10 Disposition: Home, Self-Care 01 Condition: Good Clinical Impression: Hyperemesis - Discharge Information *PRESCRIPTION DRUG MONITORING PROGRAM REVIEWED*: Not Applicable *COPY OF PRESCRIPTION DRUG MONITORING REPORT IN PATIENT EDILBERTO: Not Applicable Instructions: Nausea and Vomiting, Adult Referrals: PCP,Not In Area [Primary Care Provider] - Forms: ED Department Discharge Additional Instructions: The following information is given to patients seen in the emergency department who are being discharged to home. This information is to outline your options for follow-up care. We provide all patients seen in our emergency department with a follow-up referral. The need for follow-up, as well as the timing and circumstances, are variable depending upon the specifics of your emergency department visit. If you don't have a primary care physician on staff, we will provide you with a referral. We always advise you to contact your personal physician following an emergency department visit to inform them of the circumstance of the visit and for follow-up with them and/or the need for any referrals to a consulting specialist. The emergency department will also refer you to a specialist when appropriate. This referral assures that you have the opportunity for follow-up care with a specialist. All of these measure are taken in an effort to provide you with optimal care, which includes your follow-up. Under all circumstances we always encourage you to contact your private physician who remains a resource for coordinating your care. When calling for follow-up care, please make the office aware that this follow-up is from your recent emergency room visit. If for any reason you are refused follow-up, please contact the [facility] Emergency Department at and asked to speak to the emergency department charge nurse. Please follow up with your primary care physician. If you do not have a primary care physician, see below: [facility] [address] [place] [id number] [facility] [address] [place] [id number] You were seen today for abdominal pain with nausea and vomiting. After reviewing your previous records this can be related to your marijuana smoking recommended you see smoking marijuana to see if the symptoms do not return. We recommend you continue to follow-up with your glazier structural glass. If any other concerning signs or symptom please refer to return to the ED otherwise follow-up to primary care physician. - Assessment/Plan Plan: Is a 35-year-old female presents for recurrent abdominal pain. Patient has a vomiting on exam was given Zofran by EMS. We will obtain basic lab provide pain control and reassess patient.
[2021-02-11 14:11] LABS: BLOOD UREA NITROGEN,BUN 9 mg/dL (7.0-18.0); CARBON DIOXIDE,CO2 18.3 mmol/L (21.0-32.0); CHLORIDE,CL 103 mmol/L (98-107); GLUCOSE RANDOM 144 mg/dL (74-106); LIPASE 202 U/L (73-393); SODIUM,NA 138 mmol/L (136-145)
[2021-02-11] MEDS ORDERED: LORazepam 2 MG/ML SDV IVPUSH ONE (14:41)
[2021-02-11 15:54] VITALS: BP 104/56; PULSE 74
== END 2021-02-11 15:54 | disposition home or self-care (01) ==
LOC: MW.ED 13:32
DX: R11.10 Vomiting, unspecified (principal); R10.9 Unspecified abdominal pain; Z88.5 Allergy status to narcotic agent; Z79.899 Other long term (current) drug therapy; Z72.0 Tobacco use
CPT/HCPCS: 80053; 83690; 83735; 84100; 84703; 85025; 96374; 96375; 99284; J1200; J1630; J2060; J7030